=== PATIENT | female | born 1930 | race Hispanic/Latino ===

== ENCOUNTER 2018-08-28 11:04 | Inpatient (IN) | payer MEDICARE ==
--- NOTE | 2018-08-28 11:22 | Event Note ---
ED Screening Note Date of service: 08/28/18 Time: 11:19 ED Screening Note: 88 y/o female with cc of nausea, vomiting, diarrhea and abdomimal pain for 6 days. Had a fall on Wednesday. reports that her stomach is distended. not able to eat or drink. This initial assessment/diagnostic orders/clinical plan/treatment(s) is/are subject to change based on patients health status, clinical progression and re- assessment by fellow clinical providers in the ED. Further treatment and workup at subsequent clinical providers discretion. Patient/guardian urged not to elope from the ED as their condition may be serious if not clinically assessed and managed. Initial orders include:
[2018-08-28] MEDS ORDERED: MORPHINE IV ONE (12:41)
[2018-08-28] MEDS ORDERED: ZOFRAN IV ONE (12:41)
[2018-08-28] MEDS ORDERED: NACL 0.9% 1000 ML 1,000 ML IV ONE (12:41)
--- NOTE | 2018-08-28 12:48 | Emergency Department Report ---
HPI - General Chief Complaint: Nausea/Vomiting/Diarrhea Time Seen by Provider: 08/28/18 12:27 - HPI HPI: Room 10 The patient is an 88-year-old female presented with a chief complaint of nausea and vomiting. The patient has suffered from intractable nausea vomiting for the last 8 days. Family states there was a 1 or 2 day period within the last week w ith the patient was able to keep something on her stomach. Patient complains of feeling weak and states she has diffuse abdominal discomfort. Patient admits to diarrhea for approximately 9 days. There's been no recent antibiotic use. Family reports a subjective fever. Patient currently gives her abdominal pain score of 3/10. Location: gastroentestinal system Duration: 8 days Quality: burning Severity: 3/10 Modifying factors: [see above] Context: [see above] Mode of transportation: [not driving] ED Past Medical Hx - Past Medical History Hx Hypertension: Yes Additional medical history: "heart murmur" IRON DEFIENCY ANMENIA. GETS IRON INFUSIONS - Surgical History Additional Surgical History: "foot surgery", knee surgery, Hysterectomy - Family History Family history: no significant - Social History Smoking Status: Never Smoker Substance Use Type: None - Medications Home Medications: Home Medications Medication Instructions Recorded Confirmed Last Taken Type Propranolol HCl 60 mg PO QDAY 09/28/15 09/28/15 Unknown History ALPRAZolam [Xanax TAB] 0.25 mg PO BID PRN #10 tab 10/01/15 Unknown Rx ED Review of Systems ROS: Stated complaint: NAUSEA Other details as noted in HPI Constitutional: fever (subjective) ENT: denies: throat pain Respiratory: no symptoms reported Cardiovascular: other (burning esophageal pain) Endocrine: no symptoms reported Gastrointestinal: abdominal pain, nausea, vomiting, diarrhea Genitourinary: denies: dysuria Musculoskeletal: denies: back pain Neurological: denies: headache Physical Exam - Physical Exam Vital Signs: Vital Signs 08/28/18 11:14 Temperature 97.5 F L Pulse Rate 77 Respiratory 18 Rate Blood Pressure 138/73 O2 Sat by Pulse 95 Oximetry Physical Exam: GENERAL: The patient is well-developed well-nourished female lying on stretcher not appearing to be in acute distress. [] HEENT: Normocephalic. Atraumatic. Extraocular motions are intact. Patient has moist mucous membranes. NECK: Trachea midline CHEST/LUNGS: Clear to auscultation. There is no respiratory distress noted. HEART/CARDIOVASCULAR: Regular. There is no tachycardia. There is no gallop rub or murmur. ABDOMEN: Abdomen is soft, with discomfort to palpation in the midepigastric region, right lower quadrant, suprapubic and left lower quadrant. Patient has normal bowel sounds. There is no abdominal distention. SKIN: There is no rash. There is no edema. There is no diaphoresis. NEURO: The patient is awake, alert, and oriented. The patient is cooperative. The patient has normal speech MUSCULOSKELETAL: There is no evidence of acute injury. ED Course Vital Signs 08/28/18 11:14 Temperature 97.5 F L Pulse Rate 77 Respiratory 18 Rate Blood Pressure 138/73 O2 Sat by Pulse 95 Oximetry - Consultations Consultation #1: 08/28/18 15:23 Surgery paged 08/28/18 15:[address] Lopez- Will consult ED Medical Decision Making - Lab Data Result diagrams: 08/28/18 12:41 08/28/18 12:41 Laboratory Tests 08/28/18 08/28/18 08/28/18 12:41 12:41 12:41 WBC 8.6 RBC 4.37 Hgb 13.4 Hct 39.2 MCV 90 MCH 31 MCHC 34 RDW 15.9 H Plt Count 187 Lymph % (Auto) 9.1 L [place] % (Auto) 10.2 H Eos % (Auto) 0.1 Baso % (Auto) 0.3 Lymph # 0.8 L [place] # 0.9 H Eos # 0.0 Baso # 0.0 Seg Neutrophils % 80.3 H Seg Neutrophils # 6.9 Sodium 131 L Potassium 4.0 Chloride 95.8 L Carbon Dioxide 20 L Anion Gap 19 BUN 21 H Creatinine 0.7 Estimated GFR > 60 BUN/Creatinine Ratio 30 Glucose 92 Calcium 8.5 Total Bilirubin 0.30 AST 12 ALT 7 Alkaline Phosphatase 77 Total Creatine Kinase 40 CK-MB (CK-2) 2.3 CK-MB (CK-2) Rel Index 5.7 H Troponin T < 0.010 Total Protein 5.6 L Albumin 3.1 L Albumin/Globulin Ratio 1.2 Lipase 15 - EKG Data -: EKG Interpreted by Or EKG shows normal: sinus rhythm Rate: normal - EKG Data When compared to previous EKG there are: previous EKG unavailable Interpretation: nonspecific ST-T wave compa (biphasic T waves in leads V2, V3. T- wave inversions in leads V4, V5, V6), other (left bundle branch block) - Radiology Data Radiology results: report reviewed (CT abdomen and pelvis), image reviewed (CT abdomen and pelvis) [facility] [address] [place] [address] Cat Scan Report Signed Patient: JONO BIRMINGHAM MR#: [id number] : 1930 Acct:[id number] Age/Sex: 88 / F ADM Date: 08/28/18 Loc: ED Attending Dr: Ordering Physician: MESFIN MUNOZ MD Date of Service: 08/28/18 Procedure(s): CT abdomen pelvis w con Accession Number(s): [id number] cc: MESFIN MUNOZ MD PROCEDURE: CT ABDOMEN PELVIS W CON TECHNIQUE: Computerized axial tomography of the abdomen and pelvis was performed after the IV injection of iodinated nonionic contrast. Subsequently, CT of the abdomen and pelvis was performed in the delayed phase. CT DOSE LENGTH PRODUCT: 3090.7 mGycm HISTORY: epigastric and lower abd pain. Intractable n/v COMPARISONS: None . FINDINGS: Visualized lower thorax: Severe coronary artery calculi are seen. Chronic fibrotic changes are seen in the lung bases. Liver: Normal size and attenuation. Several simple hepatic cysts are seen. Several other scattered tiny low-attenuation lesions are seen which are too small to characterize. Spleen: Normal size and attenuation. Gallbladder and biliary system: Normal. Pancreas: Normal. Adrenals: Normal. Kidneys: There is a lesion in the upper pole of the right kidney which is higher in attenuation than a simple cyst measuring 4.0 x 3.3 cm. Multiple other low-attenuation lesions are seen bilaterally which are higher in attenuation than simple cysts. No hydronephrosis is seen on either side. GI tract: There is an irregular mass in the region of the cecum measuring approximately 7.1 cm AP by 6.3 cm transverse by 8.0 cm craniocaudal. This mass causes a small bowel obstruction with transition zone at the level of the terminal ileum. The appendix is normal in caliber. A duodenal diverticulum is seen. Lymph nodes and mesentery: Multiple e nlarged pericecal lymph nodes are seen. One of the larger lymph nodes measures 2.2 x 1.5 cm on series 2, image 92. There is stranding in the left omentum with some nodularity. Vasculature: Atherosclerotic calculi are seen in the abdominal aorta and branch vessels. Bladder: Normal. Reproductive organs: Post hysterectomy. Peritoneum: There is a small volume of scattered free intra- abdominal fluid. Musculoskeletal structures: No significant abnormality. Other: There is a small fat-containing umbilical hernia.. IMPRESSION: 1. 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 2. Several enlarged pericecal lymph nodes concerning for neoplastic involvement. Stranding and nodularity of the left omentum could represent omental carcinomatosis. 3. Several simple hepatic cysts. Several additional low-attenuation hepatic lesions which are too small to characterize but may represent small cysts or metastatic lesions. 4. Small volume of scattered ascites. 5. Several nonspecific low-attenuation renal lesions which are higher in attenuation than simple cysts and may represent proteinaceous or hemorrhagic cysts versus solid renal neoplasms. The urgent results were discussed with SHIVA Saab at 11:56 AM PST on 08/28/2018. This document is electronically signed by Blossom Morales., August 28 2018 03:06:55 PM ET Transcribed By: MG Dictated By: BLOSSOM JOHNSON MD Electronically Authenticated By: BLOSSOM JOHNSON MD Signed Date/Time: 08/28/18 1509 DD/ 18 TD/TT: 08/28/181418 - Differential Diagnosis gastritis, gastroenteritis, SBO, ACS, Critical care attestation.: If time is entered above; I have spent that time in minutes in the direct care of this critically ill patient, excluding procedure time. ED Disposition Clinical Impression: Acute abdominal pain, Cecum mass, Small bowel obstruction Disposition: OP ADMIT IP TO THIS HOSP Is pt being admited?: Yes Does the pt Need Aspirin: No Condition: Fair Referrals: ANA MOURA MD [Primary Care Provider] - 3-5 Days Time of Disposition: 15:34 (hospitalist notified (Dr Yost))
[2018-08-28 12:59] LABS: Basophils % (Auto) 0.3 % (0.0-1.8); Eosinophils % (Auto) 0.1 % (0.0-4.3); Hematocrit 39.2 % (30.3-42.9); Hemoglobin 13.4 gm/dl (10.1-14.3); Lymphocytes # (Auto) 0.8 K/mm3 (1.2-5.4); Lymphocytes % (Auto) 9.1 % (13.4-35.0); Mean Corpuscular HGB Conc 34 % (30-34); Mean Corpuscular Volume 90 fl (79-97); Monocytes # (Auto) 0.9 K/mm3 (0.0-0.8); Monocytes % (Auto) 10.2 % (0.0-7.3); Platelet Count 187 K/mm3 (140-440); Red Blood Count 4.37 M/mm3 (3.65-5.03); Red Cell Distribution Width 15.9 % (13.2-15.2)
[2018-08-28 13:16] LABS: Creatine Kinase MB 2.3 ng/mL (0.0-4.0)
[2018-08-28 13:18] LABS: Alanine Aminotransferase 7 units/L (7-56); Albumin 3.1 g/dL (3.9-5); BUN/Creatinine Ratio 30; Blood Urea Nitrogen 21 mg/dL (7-17); Calcium 8.5 mg/dL (8.4-10.2); Hemolysis Index 31
--- NOTE | 2018-08-28 15:09 | Cat Scan Report ---
PROCEDURE: CT ABDOMEN PELVIS W CON TECHNIQUE: Computerized axial tomography of the abdomen and pelvis was performed after the IV inject ion of iodinated nonionic contrast. Subsequently, CT of the abdomen and pelvis was performed in the d elayed phase. CT DOSE LENGTH PRODUCT: 3090.7 mGycm HISTORY: epigastric and lower abd pain. Intractable n/v COMPARISONS: None . FINDINGS: Visualized lower thorax: Severe coronary artery calculi are seen. Chronic fibrotic changes are seen i n the lung bases. Liver: Normal size and attenuation. Several simple hepatic cysts are seen. Several other scattered ti ny low-attenuation lesions are seen which are too small to characterize. Spleen: Normal size and attenuation. Gallbladder and biliary system: Normal. Pancreas: Normal. Adrenals: Normal. Kidneys: There is a lesion in the upper pole of the right kidney which is higher in attenuation than a simple cyst measuring 4.0 x 3.3 cm. Multiple other low-attenuation lesions are seen bilaterally whi ch are higher in attenuation than simple cysts. No hydronephrosis is seen on either side. GI tract: There is an irregular mass in the region of the cecum measuring approximately 7.1 cm AP by 6.3 cm transverse by 8.0 cm craniocaudal. This mass causes a small bowel obstruction with transition zone at the level of the terminal ileum. The appendix is normal in caliber. A duodenal diverticulum i s seen. Lymph nodes and mesentery: Multiple enlarged pericecal lymph nodes are seen. One of the larger lymph nodes measures 2.2 x 1.5 cm on series 2, image 92. There is stranding in the left omentum with some n odularity. Vasculature: Atherosclerotic calculi are seen in the abdominal aorta and branch vessels. Bladder: Normal. Reproductive organs: Post hysterectomy. Peritoneum: There is a small volume of scattered free intra-abdominal fluid. Musculoskeletal structures: No significant abnormality. Other: There is a small fat-containing umbilical hernia.. IMPRESSION: 1. 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 2. Several enlarged pericecal lymph nodes concerning for neoplastic involvement. Stranding and nodula rity of the left omentum could represent omental carcinomatosis. 3. Several simple hepatic cysts. Several additional low-attenuation hepatic lesions which are too sma ll to characterize but may represent small cysts or metastatic lesions. 4. Small volume of scattered ascites. 5. Several nonspecific low-attenuation renal lesions which are higher in attenuation than simple cyst s and may represent proteinaceous or hemorrhagic cysts versus solid renal neoplasms. The urgent results were discussed with SHIVA Saab at 11:56 AM PST on 08/28/2018. This document is electronically signed by Blossom Morales., August 28 2018 03:06:55 PM ET
--- NOTE | 2018-08-28 16:19 | History and Physical Report ---
History of Present Illness Chief complaint: My stomach hurts History of present illness: 88 YO Female with HTN, Anemia requiring blood transfusion presents to ED for evaluation. Pt states that has experienced nausea and multiple episodes of vomiting and abdominal pain over the past 1 week. Pt states that her pain is 3- 5/10, constant, diffuse, without exacerbating, or alleviating factors. Pt transported to [facility] via private vehicle. 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 complicated by PSBO on CT of abdomen/pelvis. Pt admitted to EDEL unit. Pt seen and evaluated by surgical team in ED. Pt denies fever, chills, chest pain, palpitations, trauma, unintentional weight loss, night sweats, productive cough, skin rash, or recent ill contacts. Prior admission on 09/28/15 reviewed. All listed medication reconciled at time of exam. Past History Past Medical History: hypertension Past Surgical History: hysterectomy, total knee replacement, Other (Foot surgery) Social history: . denies: smoking, alcohol abuse, prescription drug abuse Family history: no significant family history Medications and Allergies Allergies Allergy/AdvReac Type Severity Reaction Status Date / Time acetaminophen Allergy Unknown Verified 08/28/18 11:05 [From Darvocet-N 100] aspirin Allergy Unknown Verified 08/28/18 11:05 codeine Allergy Unknown Verified 08/28/18 11:05 propoxyphene napsylate Allergy Unknown Verified 08/28/18 11:05 [From Darvocet-N 100] Home Medications Medication Instructions Recorded Confirmed Last Taken Type Propranolol HCl 60 mg PO QDAY 09/28/15 08/29/18 08/26/18 22:00 History ALPRAZolam [Xanax TAB] 0.25 mg PO BID PRN #10 tab 10/01/15 Unknown Rx Review of Systems Constitutional: no weight loss, no weight gain, no fever, no chills Ears, nose, mouth and throat: no ear discharge, no decreased hearing, no nose pain, no nasal congestion Breasts: no change in shape, no swelling Cardiovascular: no orthopnea, no palpitations, no rapid/irregular heart beat, no edema Respiratory: no cough, no cough with sputum, no excessive sputum, no hemoptysis Gastrointestinal: abdominal pain, nausea, vomiting, no change in bowel habits, no hematemesis, no BRBPR, no melena, no loss of appetite, no heartburn Genitourinary Female: no pelvic pain, no flank pain, no menorrhagia, no dysuria, no urinary frequency, no urgency, no stress incontinence Rectal: no pain, no incontinence, no bleeding Musculoskeletal: no neck stiffness, no neck pain, no shooting arm pain, no low back pain, no shooting leg pain, no redness of joints Integumentary: no rash, no pruritis, no redness, no wounds, no jaundice, no blisters Neurological: no transient paralysis, no paralysis, no weakness, no parathesias, no numbness, no tingling, no seizures, no syncope, no ataxia Psychiatric: no anxiety, no memory loss, no sleep disturbances, no insomnia, no change in libido, no suicidal ideation, no disorientation Endocrine: no cold intolerance, no heat intolerance, no polyphagia, no polydipsia, no polyuria Hematologic/Lymphatic: no easy bruising, no easy bleeding, no lymphadenopathy, no lymphedema Allergic/Immunologic: no urticaria, no allergic rhinitis, no wheezing, no persistent infections Exam - Constitutional Vitals: Temp Pulse Resp BP Pulse Ox 97.5 F L 77 16 138/73 95 08/28/18 11:14 08/28/18 11:14 08/28/18 13:35 08/28/18 11:14 08/28/18 11:14 General appearance: Present: mild distress - EENT Eyes: Present: PERRL ENT: hearing intact, clear oral mucosa - Neck Neck: Present: supple, normal ROM - Respiratory Respiratory effort: normal Respiratory: bilateral: CTA - Cardiovascular Heart Sounds: Present: S1 & S2. Absent: rub, click - Extremities Extremities: pulses symmetrical, No edema Peripheral Pulses: within normal limits - Abdominal General gastrointestinal: Present: soft, non-tender, non-distended, normal bowel sounds Female genitourinary: Present: normal - Integumentary Integumentary: Present: clear, warm, dry - Musculoskeletal Musculoskeletal: gait normal, strength equal bilaterally - Psychiatric Psychiatric: appropriate mood/affect, intact judgment & insight - Neurologic Neurologic: CNII-XII intact, moves all extremities Results - Labs CBC & Chem 7: 08/29/18 05:55 08/29/18 05:55 Labs: Abnormal lab results 08/28/18 08/28/18 08/28/18 Range/Units 12:41 12:41 12:41 RDW 15.9 H (13.2-15.2) % Lymph % (Auto) 9.1 L (13.4-35.0) % [place] % (Auto) 10.2 H (0.0-7.3) % Lymph # 0.8 L (1.2-5.4) K/mm3 [place] # 0.9 H (0.0-0.8) K/mm3 Seg Neutrophils % 80.3 H (40.0-70.0) % Sodium 131 L (137-145) mmol/L Chloride 95.8 L (98-107) mmol/L Carbon Dioxide 20 L (22-30) mmol/L BUN 21 H (7-17) mg/dL CK-MB (CK-2) Rel Index 5.7 H (0-4) Total Protein 5.6 L (6.3-8.2) g/dL Albumin 3.1 L (3.9-5) g/dL Assessment and Plan - Patient Problems (1) Small bowel obstruction Current Visit: Yes Status: Acute Plan to address problem: Bowel rest, surgery consulted in ED, CT Abdomen pelvis, abdominal x ray in am,IVF resuscitation therapy, pain control. (2) Hyponatremia syndrome Current Visit: Yes Status: Acute Plan to address problem: IVF resuscitation therapy, repeat bmp. (3) Acidosis Current Visit: Yes Status: Acute Plan to address problem: IVF resuscitation therapy, repeat bmp, supportive care. (4) Acute abdominal pain Current Visit: Yes Status: Acute Plan to address problem: CT abdomen pelvis, serial abdominal exam, pain control, monitor for closed loop bowel obstruction., monitor for abdominal distention/and worsening abdominal pain. XR abdomen in AM. 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 (6) DVT prophylaxis Current Visit: Yes Status: Acute Plan to address problem: SCD to BLE while in bed,
[2018-08-28] MEDS ORDERED: SODIUM CHLORIDE FLUSH SYRINGE 10 ML IV PRN (16:24)
[2018-08-28] MEDS ORDERED: TYLENOL PO PRN (16:24)
--- NOTE | 2018-08-28 16:41 | Consultation ---
History of Present Illness Consult date: 08/28/18 Reason for consult: abdominal pain Chief complaint: abdominal pain - History of present illness History of present illness: 88 yo F with hx of iron deficiency anemia presents to ER with 8 day history of n ausea/vomiting, abdominal pain. The patient states her pain is hard to describe and localized to the lower mid abdomen and radiates to the right side. There are no alleviating or exacerbating factors. It is not related to food although some foods such as meat tend to get stuck in her esophagus. Over the last 6 months she has noticed a 40lb or more unintentional weight loss. She has noticed a change in the color of her stool and thinks it is much darker and may be bloody. She sees Dr. Mayes (oncology) as an outpatient for iron infusions for anemia. She also notes that she has had looser stools. Her last BM was yesterday. No f/c. No CP, SOB. Last cscope was more than 5 years ago. She was a dvised by her PCP Dr. Sarah Rodriguez that she should have cscope done several months ago but did not have a chance to have it done. Past History Past Medical History: anemia (iron deficiency) Past Surgical History: Other (fatty tumor excision) Social history: no significant social history Family history: no significant family history Medications and Allergies Allergies Allergy/AdvReac Type Severity Reaction Status Date / Time acetaminophen Allergy Unknown Verified 08/28/18 11:05 [From Darvocet-N 100] aspirin Allergy Unknown Verified 08/28/18 11:05 codeine Allergy Unknown Verified 08/28/18 11:05 propoxyphene napsylate Allergy Unknown Verified 08/28/18 11:05 [From Darvocet-N 100] Home Medications Medication Instructions Recorded Confirmed Last Taken Type Propranolol HCl 60 mg PO QDAY 09/28/15 09/28/15 Unknown History ALPRAZolam [Xanax TAB] 0.25 mg PO BID PRN #10 tab 10/01/15 Unknown Rx Active Meds: Active Medications Acetaminophen (Tylenol) 650 mg PO Q4H PRN PRN Reason: Pain MILD(1-3)/Fever >100.5/[place] Alprazolam (Xanax) 0.25 mg PO BID PRN PRN Reason: Anxiety Sodium Chloride (Nacl 0.9% 1000 Ml) 1,000 mls @ 75 mls/hr IV DIRECT RAJ Ondansetron HCl (Zofran) 4 mg IV Q8H PRN PRN Reason: Nausea And Vomiting Propranolol HCl (Inderal La) 60 mg PO QDAY RAJ Sodium Chloride (Sodium Chloride Flush Syringe 10 Ml) 10 ml IV BID RAJ Sodium Chloride (Sodium Chloride Flush Syringe 10 Ml) 10 ml IV PRN PRN PRN Reason: LINE FLUSH Review of Systems All systems: negative (10 pt ROS performed and negative except for that listed in HPI) Exam Vital Signs Temp Pulse Resp BP Pulse Ox 97.5 F L 77 18 138/73 95 08/28/18 11:14 08/28/18 11:14 08/28/18 11:14 08/28/18 11:14 08/28/18 11:14 Narrative exam: Gen: AAOx3. NAD. Frail appearing ENT: no scleral icterus or conjunctival pallor CV: s1, S2+ Resp; even and unlabored Abd: soft, ND, + TTP in suprapubic region and RLQ. No r/r/g Ext: no c/c/e Results - Labs 08/28/18 12:41 08/28/18 12:41 Abnormal lab results 08/28/18 08/28/18 08/28/18 Range/Units 12:41 12:41 12:41 RDW 15.9 H (13.2-15.2) % Lymph % (Auto) 9.1 L (13.4-35.0) % [place] % (Auto) 10.2 H (0.0-7.3) % Lymph # 0.8 L (1.2-5.4) K/mm3 [place] # 0.9 H (0.0-0.8) K/mm3 Seg Neutrophils % 80.3 H (40.0-70.0) % Sodium 131 L (137-145) mmol/L Chloride 95.8 L (98-107) mmol/L Carbon Dioxide 20 L (22-30) mmol/L BUN 21 H (7-17) mg/dL CK-MB (CK-2) Rel Index 5.7 H (0-4) Total Protein 5.6 L (6.3-8.2) g/dL Albumin 3.1 L (3.9-5) g/dL Diabetes panel 08/28/18 Range/Units 12:41 Sodium 131 L (137-145) mmol/L Potassium 4.0 (3.6-5.0) mmol/L Chloride 95.8 L (98-107) mmol/L Carbon Dioxide 20 L (22-30) mmol/L BUN 21 H (7-17) mg/dL Creatinine 0.7 (0.7-1.2) mg/dL Glucose 92 (65-100) mg/dL Calcium 8.5 (8.4-10.2) mg/dL AST 12 (5-40) units/L ALT 7 (7-56) units/L Alkaline Phosphatase 77 (35-129) units/L Total Protein 5.6 L (6.3-8.2) g/dL Albumin 3.1 L (3.9-5) g/dL Calcium panel 08/28/18 Range/Units 12:41 Calcium 8.5 (8.4-10.2) mg/dL Albumin 3.1 L (3.9-5) g/dL Pituitary panel 08/28/18 Range/Units 12:41 Sodium 131 L (137-145) mmol/L Potassium 4.0 (3.6-5.0) mmol/L Chloride 95.8 L (98-107) mmol/L Carbon Dioxide 20 L (22-30) mmol/L BUN 21 H (7-17) mg/dL Creatinine 0.7 (0.7-1.2) mg/dL Glucose 92 (65-100) mg/dL Calcium 8.5 (8.4-10.2) mg/dL Adrenal panel 08/28/18 Range/Units 12:41 Sodium 131 L (137-145) mmol/L Potassium 4.0 (3.6-5.0) mmol/L Chloride 95.8 L (98-107) mmol/L Carbon Dioxide 20 L (22-30) mmol/L BUN 21 H (7-17) mg/dL Creatinine 0.7 (0.7-1.2) mg/dL Glucose 92 (65-100) mg/dL Calcium 8.5 (8.4-10.2) mg/dL Total Bilirubin 0.30 (0.1-1.2) mg/dL AST 12 (5-40) units/L ALT 7 (7-56) units/L Alkaline Phosphatase 77 (35-129) units/L Total Protein 5.6 L (6.3-8.2) g/dL Albumin 3.1 L (3.9-5) g/dL - Imaging CT scan - abdomen: report reviewed, image reviewed CT scan - pelvis: report reviewed, image reviewed Assessment and Plan 88 yo F with 1. cecal mass 2. SBO 2/2 #1 3. iron deficiency anemia 4. malnutrition - albumin 3.1 Plan: 1. NPO, place NGT 2. IVF 3. prn pain and nausea control 4. CEA 5. CT chest to r/o mets 6. oncology consult - Dr. Davison. Dr. Mayes is not on staff at [facility] 7. GI consult 8. cardiology consult - preop risk assessment. 9. Ct Abd showed small liver lesions - May need MRI abdomen to evaluate as they are likely too small too biopsy - r/o mets Discussed test results, plan with family at bedside and patient. Patient' son is Tyler Hughes [phone]. PCP is Sarah Rodriguez. I discussed possible surgery with patient and family and they would like to pursue all treatment. Thank you, please call with questions.
[2018-08-28] MEDS ORDERED: NACL 0.9% 1000 ML 1,000 ML IV SCH (17:00)
[2018-08-28 17:24] LABS: Bacteria,Urine 1+ /HPF (Negative); Bilirubin,Urine NEG (Negative); Blood,Urine NEG (Negative); Color,Urine Yellow (Yellow); Mucus,Urine FEW /HPF; Protein,Urine <15 mg/dL mg/dL (Negative); Urobilinogen,Urine < 2.0 mg/dL (<2.0)
[2018-08-28] MEDS: ZOFRAN IV PRN (18:40)
--- NOTE | 2018-08-28 19:11 | Cat Scan Report ---
PROCEDURE: CT CHEST WO CON TECHNIQUE: CT chest without contrast HISTORY: cecal mass, r/o metastatic disease COMPARISONS: No prior studies for comparison FINDINGS: No evidence for mediastinal mass or pathologic lymph node enlargement. No pulmonary mass identified. No pulmonary infiltrate seen. No evidence for pleural fluid collection. Mild dependent atelectasis noted at the lung bases No suspicious bony lesions are identified Within the upper abdomen noted is a low density focus left lobe of the liver 3.5 cm most likely cyst. Additionally noted are several cysts within the visualized portion of the kidneys is minimal residua l contrast noted within the renal collecting systems IMPRESSION: No evidence for metastatic disease in the chest Incidental findings in the upper abdomen as noted above. This document is electronically signed by Mina Watters MD., August 28 2018 07:09:46 PM ET
[2018-08-28] MEDS: PROTONIX IV SCH (22:35)
[2018-08-28] MEDS: SODIUM CHLORIDE FLUSH SYRINGE 10 ML IV SCH (22:35)
[2018-08-29 06:44] LABS: Hematocrit 33.8 % (30.3-42.9); Hemoglobin 11.4 gm/dl (10.1-14.3); Mean Corpuscular HGB Conc 34 % (30-34); Mean Corpuscular Volume 90 fl (79-97); Platelet Count 153 K/mm3 (140-440); Red Blood Count 3.74 M/mm3 (3.65-5.03); Red Cell Distribution Width 16.2 % (13.2-15.2)
[2018-08-29 06:55] LABS: Alanine Aminotransferase 6 units/L (7-56); Albumin 2.8 g/dL (3.9-5); BUN/Creatinine Ratio 28; Blood Urea Nitrogen 14 mg/dL (7-17); Calcium 7.8 mg/dL (8.4-10.2); Hemolysis Index 6
--- NOTE | 2018-08-29 07:46 | Event Note ---
Date: 08/29/18 [id number]
[2018-08-29 08:17] LABS: Anisocytosis 1+; Basophils % (Manual) 0 % (0.0-1.8); Eosinophils % (Manual) 0 % (0.0-4.3); Total Cells Counted 100
[2018-08-29 08:18] LABS: Ovalocytes Few; Platelet Estimate Consistent w Auto; Poikilocytosis 1+
--- NOTE | 2018-08-29 08:30 | XRay Report ---
ABDOMEN, 2 views: History: Abdominal pain. The nasogastric tube terminates in the fundus of the stomach. Multiple moderately dilated loops of small bowel are identified and appear grossly unchanged since the CT performed 08/28/18. The colon appears decompressed. No evidence for free air or pathologic calcifications. IMPRESSION: No significant change in the small bowel obstruction pattern.
[2018-08-29] MEDS ORDERED: PROPRANOLOL HCL 60 MG PO SCH (10:00)
--- NOTE | 2018-08-29 10:25 | Progress Note ---
Assessment and Plan Assessment and plan: 88 YO Female with HTN, Anemia requiring blood transfusion presents to ED for evaluation. Pt states that has experienced nausea and multiple episodes of vomiting and abdominal pain over the past 1 week. Pt states that her pain is 3- 5/10, constant, diffuse, without exacerbating, or alleviating factors. Pt transported to [facility] via private vehicle. 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 complicated by PSBO on CT of abdomen/pelvis. Pt admitted to [facility] unit. Pt seen and evaluated by surgical team in ED. Pt denies fever, chills, chest pain, palpitations, trauma, unintentional weight loss, night sweats, productive cough, skin rash, or recent ill contacts. Prior admission on 09/28/15 reviewed. All listed medication reconciled at time of exam. ECG shows NSR with apparently new LBBB (not present on last ECG in office 09/2016). Echo done 09/2016 showed EF 50%, grade 1 diastolic dysfunction. Lexiscan MPI stress test 09/2015 which was negative, EF 50%. CT A/P IMPRESSION: 1. 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 2. Several enlarged pericecal lymph nodes concerning for neoplastic involvement. Stranding and nodularity of the left omentum could represent omental carcinomatosis. 3. Several simple hepatic cysts. Several additional low-attenuation hepatic lesions which are too small to characterize but may represent small cysts or metastatic lesions. 4. Small volume of scattered ascites. 5. Several nonspecific low-attenuation renal lesions which are higher in attenuation than simple cysts and may represent proteinaceous or hemorrhagic cysts versus solid renal neoplasms. Assessment/Plan Cecal Mass: Surgery follow, GI evaluated and signed off. SBO secondary to Cecal Mass: NGT, Judicious pain control, M Possible Metastatic lesion to liver and omentum: MRI For further evaluation, patient refusing now, discussed with surgery, can be done later Hyponatermia: Continue gentle hydration Metabolic Acidosis: Anticipate correction with hydration Nausea and Vomiting: Continue NGT, zofran PRN Peritoneal irration/acute abdominal pain secondary to small bowel obstruction: Management as noted above Iron deficency anemia: As noted above patient follows with hematology oncology. Considering coronary consult hematology. Left bundle branch block: Repeat echocardiogram ordered for perioperative risk stratification Hypokalemia: Replace Hypoglycemia: Start D5 with gentle hydration DVT/GI prophy History Interval history: Patient seen and examined, still with abdominal pain but refusing MRI due to desire to have NGT taken. Hospitalist Physical - Physical exam Narrative exam: VITAL SIGNS: Reviewed. GENERAL: The patient appeared well nourished and normally developed, mild distress, Vital signs as documented. HEAD: No signs of head trauma. EYES: Pupils are equal. Extraocular motions intact. EARS: Hearing grossly intact. NOSTRIL: NGT to right nostril MOUTH: Oropharynx is normal. NECK: No adenopathy, no JVD. CHEST: Chest with clear breath sounds bilaterally. No wheezes, rales, or rhonchi. CARDIAC: Regular rate and rhythm. S1 and S2, without murmurs, gallops, or rubs. VASCULAR: No Edema. Peripheral pulses normal and equal in all extremities. ABDOMEN: Soft, tender, distended. No rebound or guarding, and no masses palpated. Bowel Sounds hypoactive MUSCULOSKELETAL: Good range of motion of all major joints. Extremities without clubbing, cyanosis or edema. NEUROLOGIC EXAM: Alert and oriented x 3 No focal sensory or strength deficits. Speech normal. Follows commands. PSYCHIATRIC: Mood normal. SKIN: No rash or lesions. - Constitutional Vitals: Temp Pulse Resp BP Pulse Ox 98.8 F 65 20 169/61 95 08/29/18 07:45 08/29/18 07:45 08/29/18 07:45 08/29/18 07:45 08/29/18 09:17 General appearance: Present: mild distress Results - Labs CBC & Chem 7: 08/29/18 05:55 08/29/18 05:55 Labs: Laboratory Last Values WBC 7.0 K/mm3 (4.5-11.0) 08/29/18 05:55 RBC 3.74 M/mm3 (3.65-5.03) 08/29/18 05:55 Hgb 11.4 gm/dl (10.1-14.3) 08/29/18 05:55 Hct 33.8 % (30.3-42.9) 08/29/18 05:55 MCV 90 fl (79-97) 08/29/18 05:55 MCH 31 pg (28-32) 08/29/18 05:55 MCHC 34 % (30-34) 08/29/18 05:55 RDW 16.2 % (13.2-15.2) H 08/29/18 05:55 Plt Count 153 K/mm3 (140-440) 08/29/18 05:55 Lymph % (Auto) 9.1 % (13.4-35.0) L 08/28/18 12:41 Isabela % (Auto) Plasma Processor 08/29/18 05:55 Eos % (Auto) 0.1 % (0.0-4.3) 08/28/18 12:41 Baso % (Auto) 0.3 % (0.0-1.8) 08/28/18 12:41 Lymph # 0.8 K/mm3 (1.2-5.4) L 08/28/18 12:41 Isabela # 0.9 K/mm3 (0.0-0.8) H 08/28/18 12:41 Eos # 0.0 K/mm3 (0.0-0.4) 08/28/18 12:41 Baso # 0.0 K/mm3 (0.0-0.1) 08/28/18 12:41 Add Manual Diff Complete 08/29/18 05:55 Total Counted 100 08/29/18 05:55 Seg Neutrophils % 80.3 % (40.0-70.0) H 08/28/18 12:41 Seg Neuts % (Manual) 86.0 % (40.0-70.0) H 08/29/18 05:55 0 % 08/29/18 05:55 5.0 % (13.4-35.0) L 08/29/18 05:55 Reactive Lymphs % (Man) 0 % 08/29/18 05:55 9.0 % (0.0-7.3) H 08/29/18 05:55 0 % (0.0-4.3) 08/29/18 05:55 0 % (0.0-1.8) 08/29/18 05:55 0 % 08/29/18 05:55 0 % 08/29/18 05:55 0 % 08/29/18 05:55 0 % 08/29/18 05:55 Nucleated RBC % Not Reportable 08/29/18 05:55 Seg Neutrophils # 6.9 K/mm3 (1.8-7.7) 08/28/18 12:41 Seg Neutrophils # Man 6.0 K/mm3 (1.8-7.7) 08/29/18 05:55 Band Neutrophils # 0.0 K/mm3 08/29/18 05:55 0.4 K/mm3 (1.2-5.4) L 08/29/18 05:55 Abs React Lymphs (Man) 0.0 K/mm3 08/29/18 05:55 0.6 K/mm3 (0.0-0.8) 08/29/18 05:55 0.0 K/mm3 (0.0-0.4) 08/29/18 05:55 0.0 K/mm3 (0.0-0.1) 08/29/18 05:55 0.0 K/mm3 08/29/18 05:55 0.0 K/mm3 08/29/18 05:55 0.0 K/mm3 08/29/18 05:55 Blast Cells # 0.0 K/mm3 08/29/18 05:55 WBC Morphology Not Reportable 08/29/18 05:55 WBC Morphology TNR 08/29/18 05:55 Hypersegmented Neuts Not Reportable 08/29/18 05:55 Hyposegmented Neuts Not Reportable 08/29/18 05:55 Hypogranular Neuts Not Reportable 08/29/18 05:55 Not Reportable 08/29/18 05:55 Not Reportable 08/29/18 05:55 Not Reportable 08/29/18 05:55 Not Reportable 08/29/18 05:55 Not Reportable 08/29/18 05:55 Not Reportable 08/29/18 05:55 Consistent w auto 08/29/18 05:55 Not Reportable 08/29/18 05:55 Plt Clumps, EDTA Not Reportable 08/29/18 05:55 Not Reportable 08/29/18 05:55 Not Reportable 08/29/18 05:55 Not Reportable 08/29/18 05:55 Plt Morphology Comment Not Reportable 08/29/18 05:55 RBC Morphology Not Reportable 08/29/18 05:55 Dimorphic RBCs Not Reportable 08/29/18 05:55 Not Reportable 08/29/18 05:55 Not Reportable 08/29/18 05:55 1+ 08/29/18 05:55 1+ 08/29/18 05:55 Not Reportable 08/29/18 05:55 Not Reportable 08/29/18 05:55 Not Reportable 08/29/18 05:55 Not Reportable 08/29/18 05:55 Not Reportable 08/29/18 05:55 Not Reportable 08/29/18 05:55 Not Reportable 08/29/18 05:55 Few 08/29/18 05:55 Not Reportable 08/29/18 05:55 Not Reportable 08/29/18 05:55 Not Reportable 08/29/18 05:55 Not Reportable 08/29/18 05:55 Not Reportable 08/29/18 05:55 Not Reportable 08/29/18 05:55 Few 08/29/18 05:55 Acanthocytes (Spur) Not Reportable 08/29/18 05:55 Rouleaux Not Reportable 08/29/18 05:55 Not Reportable 08/29/18 05:55 Not Reportable 08/29/18 05:55 Not Reportable 08/29/18 05:55 Not Reportable 08/29/18 05:55 Hem Pathologist Commnt No 08/29/18 05:55 Sodium 134 mmol/L (137-145) L 08/29/18 05:55 Potassium 3.4 mmol/L (3.6-5.0) L 08/29/18 05:55 Chloride 100.9 mmol/L (98-107) 08/29/18 05:55 Carbon Dioxide 18 mmol/L (22-30) L 08/29/18 05:55 19 mmol/L 08/29/18 05:55 BUN 14 mg/dL (7-17) 08/29/18 05:55 0.5 mg/dL (0.7-1.2) L 08/29/18 05:55 Estimated GFR > 60 ml/min 08/29/18 05:55 28 % 08/29/18 05:55 Glucose 62 mg/dL (65-100) L 08/29/18 05:55 Calcium 7.8 mg/dL (8.4-10.2) L 08/29/18 05:55 0.30 mg/dL (0.1-1.2) 08/29/18 05:55 AST 9 units/L (5-40) 08/29/18 05:55 ALT 6 units/L (7-56) L 08/29/18 05:55 67 units/L (35-129) 08/29/18 05:55 40 units/L (30-135) 08/28/18 12:41 CK-MB (CK-2) 2.3 ng/mL (0.0-4.0) 08/28/18 12:41 CK-MB (CK-2) Rel Index 5.7 (0-4) H 08/28/18 12:41 < 0.010 ng/mL (0.00-0.029) 08/28/18 12:41 4.9 g/dL (6.3-8.2) L 08/29/18 05:55 2.8 g/dL (3.9-5) L 08/29/18 05:55 1.3 % 08/29/18 05:55 15 units/L (13-60) 08/28/18 12:41 Yellow (Yellow) 08/28/18 Unknown Clear (Clear) 08/28/18 Unknown 5.0 (5.0-7.0) 08/28/18 Unknown Ur Specific Myrtle 1.049 (1.003-1.030) H 08/28/18 Unknown <15 mg/dl mg/dL (Negative) 08/28/18 Unknown Neg mg/dL (Negative) 08/28/18 Unknown 20 mg/dL (Negative) 08/28/18 Unknown Neg (Negative) 08/28/18 Unknown Pos (Negative) 08/28/18 Unknown Neg (Negative) 08/28/18 Unknown < 2.0 mg/dL (<2.0) 08/28/18 Unknown Ur Leukocyte Esterase Neg (Negative) 08/28/18 Unknown 1.0 /HPF (0.0-6.0) 08/28/18 Unknown 3.0 /HPF (0.0-6.0) 08/28/18 Unknown U Epithel Cells (Auto) 1.0 /HPF (0-13.0) 08/28/18 Unknown 1+ /HPF (Negative) 08/28/18 Unknown Few /HPF 08/28/18 Unknown Blood Type O POSITIVE 08/29/18 06:00 Antibody Screen Negative 08/29/18 06:00 Active Medications - Current Medications Current Medications: Generic Name Dose Route Start Last Admin Trade Name Freq PRN Reason Stop Dose Admin Acetaminophen 650 mg 08/28/18 16:24 Tylenol PO Q4H PRN Pain MILD(1-3)/Fever >100.5/[place] Alprazolam 0.25 mg 08/28/18 16:26 Xanax PO BID PRN Anxiety Enoxaparin Sodium 40 mg 08/29/18 10:00 Lovenox SUB-Q DAILY RAJ Sodium Chloride 1,000 mls @ 75 mls/hr 08/28/18 17:00 08/28/18 18:40 Nacl 0.9% 1000 Ml IV 75 mls/hr DIRECT RAJ Administration Potassium Chloride 10 meq in 100 mls @ 100 mls/hr 08/29/18 10:00 Kcl 10meq/100ml IV 08/29/18 13:59 Q1H RAJ Ondansetron HCl 4 mg 08/28/18 16:24 08/28/18 18:40 Zofran IV 4 mg Q8H PRN Administration Nausea And Vomiting Pantoprazole Sodium 40 mg 08/28/18 18:00 08/28/18 22:35 Protonix IV 40 mg DAILY RAJ Administration Propranolol HCl 60 mg 08/29/18 10:00 Inderal La PO QDAY RAJ Sodium Chloride 10 ml 08/28/18 22:00 08/28/18 22:35 Sodium Chloride Flush Syringe 10 Ml IV 10 ml BID RAJ Administration Sodium Chloride 10 ml 08/28/18 16:24 Sodium Chloride Flush Syringe 10 Ml IV PRN PRN LINE FLUSH
--- NOTE | 2018-08-29 10:43 | Gastroenterology Consultation ---
<CAT JOEL - Last Filed: 08/29/18 10:49> History of Present Illness - Reason for Consult Consult date: 08/29/18 cecal mass Requesting physician: ANDREEA GODWIN - History of Present Illness Patient is a 88 y/o female with PMH of HTN and INEZ (followed by Dr. Mayes as an outpatient for iron infusions) who presented to ED with c/o abdominal pain with associated N/V and inability to tolerate PO. 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 MRI pending for further evaluation of liver lesions. Surgery and oncology following. GI has been consulted for cecal mass. This morning patient was resting in bed w/o acute distress but with c/o discomfort from NGT. Reports continued abdominal disco mfort. Abdomen noted to be distended upon exam. Admits to associated change in bowel habits and unintentional wt loss. Denies fever, CP, SOB, or active signs of bleeding. +flatus this am. Last BM was on Wednesday with a small amount of liquid stool. Last colonoscopy was more than 5 years ago. No known Fhx of colon cancer. Past History Past Medical History: anemia, hypertension Past Surgical History: hysterectomy, total knee replacement, Other (Foot surgery, fatty tumor excision) Social history: . denies: smoking, alcohol abuse, prescription drug abuse Family history: no significant family history Medications and Allergies Allergies Allergy/AdvReac Type Severity Reaction Status Date / Time acetaminophen Allergy Unknown Verified 08/28/18 11:05 [From Darvocet-N 100] aspirin Allergy Unknown Verified 08/28/18 11:05 codeine Allergy Unknown Verified 08/28/18 11:05 propoxyphene napsylate Allergy Unknown Verified 08/28/18 11:05 [From Darvocet-N 100] Home Medications Medication Instructions Recorded Confirmed Last Taken Type Propranolol HCl 60 mg PO QDAY 09/28/15 08/29/18 08/26/18 22:00 History ALPRAZolam [Xanax TAB] 0.25 mg PO BID PRN #10 tab 10/01/15 Unknown Rx Active Meds: Active Medications Acetaminophen (Tylenol) 650 mg PO Q4H PRN PRN Reason: Pain MILD(1-3)/Fever >100.5/[place] Alprazolam (Xanax) 0.25 mg PO BID PRN PRN Reason: Anxiety Enoxaparin Sodium (Lovenox) 40 mg SUB-Q DAILY [facility] Sodium Chloride (Nacl 0.9% 1000 Ml) 1,000 mls @ 75 mls/hr IV DIRECT [facility]J Last Admin: 08/28/18 18:40 Dose: 75 mls/hr Documented by: Potassium Chloride (Kcl 10meq/100ml) 10 meq in 100 mls @ 100 mls/hr IV Q1H RAJ Stop: 08/29/18 13:59 Ondansetron HCl (Zofran) 4 mg IV Q8H PRN PRN Reason: Nausea And Vomiting Last Admin: 08/28/18 18:40 Dose: 4 mg Documented by: Pantoprazole Sodium (Protonix) 40 mg IV DAILY [facility] Last Admin: 08/28/18 22:35 Dose: 40 mg Documented by: Propranolol HCl (Inderal La) 60 mg PO QDAY [facility] Sodium Chloride (Sodium Chloride Flush Syringe 10 Ml) 10 ml IV BID [facility] Last Admin: 08/28/18 22:35 Dose: 10 ml Documented by: Sodium Chloride (Sodium Chloride Flush Syringe 10 Ml) 10 ml IV PRN PRN PRN Reason: LINE FLUSH medications reviewed/updated as required Review of Systems - Review of Systems All systems: negative Constitutional: weight loss Gastrointestinal: abdominal pain, nausea, vomiting, change in bowel habits Exam - Constitutional Vital Signs: Temp Pulse Resp BP Pulse Ox 98.8 F 65 20 169/61 95 08/29/18 07:45 08/29/18 07:45 08/29/18 07:45 08/29/18 07:45 08/29/18 09:17 General appearance: no acute distress - EENT Eyes: PERRL, EOM intact ENT: hearing intact, other (+NGT) - Respiratory Respiratory: bilateral: CTA (anterior) - Cardiovascular Rhythm: regular - Gastrointestinal General gastrointestinal: Present: soft, non-tender, distended, hypoactive bowel sounds - Neurologic Neurological: alert and oriented x3 - Labs CBC & Chem 7: 08/29/18 05:55 08/29/18 05:55 Lab Results: Laboratory Results - last 24 hr 08/28/18 08/28/18 08/28/18 12:41 12:41 12:41 WBC 8.6 RBC 4.37 Hgb 13.4 Hct 39.2 MCV 90 MCH 31 MCHC 34 RDW 15.9 H Plt Count 187 Lymph % (Auto) 9.1 L Mobile % (Auto) 10.2 H Eos % (Auto) 0.1 Baso % (Auto) 0.3 Lymph # 0.8 L Mobile # 0.9 H Eos # 0.0 Baso # 0.0 Add Manual Diff Total Counted Seg Neutrophils % 80.3 H Seg Neuts % (Manual) Band Neutrophils % Lymphocytes % (Manual) Reactive Lymphs % (Man) Monocytes % (Manual) Eosinophils % (Manual) Basophils % (Manual) Metamyelocytes % Myelocytes % Promyelocytes % Blast Cells % Nucleated RBC % Seg Neutrophils # 6.9 Seg Neutrophils # Man Band Neutrophils # Lymphocytes # (Manual) Abs React Lymphs (Man) Monocytes # (Manual) Eosinophils # (Manual) Basophils # (Manual) Metamyelocytes # Myelocytes # Promyelocytes # Blast Cells # WBC Morphology Hypersegmented Neuts Hyposegmented Neuts Hypogranular Neuts Smudge Cells Toxic Granulation Toxic Vacuolation Dohle Bodies Pelger-Huet Anomaly Dalton Rods Platelet Estimate Clumped Platelets Plt Clumps, EDTA Large Platelets Giant Platelets Platelet Satelliting Plt Morphology Comment RBC Morphology Dimorphic RBCs Polychromasia Hypochromasia Poikilocytosis Anisocytosis Microcytosis Macrocytosis Spherocytes Pappenheimer Bodies Sickle Cells Target Cells Tear Drop Cells Ovalocytes Helmet Cells [place] Bodies [place] Rings [place] Cells Bite Cells Crenated Cell Elliptocytes Acanthocytes (Spur) Rouleaux Hemoglobin C Crystals Schistocytes Malaria parasites Braulio Bodies Hem Pathologist Commnt Sodium 131 L Potassium 4.0 Chloride 95.8 L Carbon Dioxide 20 L Anion Gap 19 BUN 21 H Creatinine 0.7 Estimated GFR > 60 BUN/Creatinine Ratio 30 Glucose 92 Calcium 8.5 Total Bilirubin 0.30 AST 12 ALT 7 Alkaline Phosphatase 77 Total Creatine Kinase 40 CK-MB (CK-2) 2.3 CK-MB (CK-2) Rel Index 5.7 H Troponin T < 0.010 Total Protein 5.6 L Albumin 3.1 L Albumin/Globulin Ratio 1.2 Lipase 15 Urine Color Urine Turbidity Urine pH Ur Specific [place] Urine Protein Urine Glucose (UA) Urine Ketones Urine Blood Urine Nitrite Urine Bilirubin Urine Urobilinogen Ur Leukocyte Esterase Urine WBC (Auto) Urine RBC (Auto) U Epithel Cells (Auto) Urine Bacteria (Auto) Urine Mucus Blood Type Antibody Screen 08/28/18 08/29/18 08/29/18 Unknown 05:55 05:55 WBC 7.0 RBC 3.74 Hgb 11.4 Hct 33.8 MCV 90 MCH 31 MCHC 34 RDW 16.2 H Plt Count 153 Lymph % (Auto) [place] % (Auto) Box Spinner Eos % (Auto) Baso % (Auto) Lymph # Mobile # Eos # Baso # Add Manual Diff Complete Total Counted 100 Seg Neutrophils % Seg Neuts % (Manual) 86.0 H Band Neutrophils % 0 Lymphocytes % (Manual) 5.0 L Reactive Lymphs % (Man) 0 Monocytes % (Manual) 9.0 H Eosinophils % (Manual) 0 Basophils % (Manual) 0 Metamyelocytes % 0 Myelocytes % 0 Promyelocytes % 0 Blast Cells % 0 Nucleated RBC % Not Reportable Seg Neutrophils # Seg Neutrophils # Man 6.0 Band Neutrophils # 0.0 Lymphocytes # (Manual) 0.4 L Abs React Lymphs (Man) 0.0 Monocytes # (Manual) 0.6 Eosinophils # (Manual) 0.0 Basophils # (Manual) 0.0 Metamyelocytes # 0.0 Myelocytes # 0.0 Promyelocytes # 0.0 Blast Cells # 0.0 WBC Morphology Not Reportable Hypersegmented Neuts Not Reportable Hyposegmented Neuts Not Reportable Hypogranular Neuts Not Reportable Smudge Cells Not Reportable Toxic Granulation Not Reportable Toxic Vacuolation Not Reportable Dohle Bodies Not Reportable Pelger-Huet Anomaly Not Reportable Dalton Rods Not Reportable Platelet Estimate Consistent w auto Clumped Platelets Not Reportable Plt Clumps, EDTA Not Reportable Large Platelets Not Reportable Giant Platelets Not Reportable Platelet Satelliting Not Reportable Plt Morphology Comment Not Reportable RBC Morphology Not Reportable Dimorphic RBCs Not Reportable Polychromasia Not Reportable Hypochromasia Not Reportable Poikilocytosis 1+ Anisocytosis 1+ Microcytosis Not Reportable Macrocytosis Not Reportable Spherocytes Not Reportable Pappenheimer Bodies Not Reportable Sickle Cells Not Reportable Target Cells Not Reportable Tear Drop Cells Not Reportable Ovalocytes Few Helmet Cells Not Reportable [place] Bodies Not Reportable [place] Rings Not Reportable [place] Cells Not Reportable Bite Cells Not Reportable Crenated Cell Not Reportable Elliptocytes Few Acanthocytes (Spur) Not Reportable Rouleaux Not Reportable Hemoglobin C Crystals Not Reportable Schistocytes Not Reportable Malaria parasites Not Reportable Braulio Bodies Not Reportable Hem Pathologist Commnt No Sodium 134 L Potassium 3.4 L Chloride 100.9 Carbon Dioxide 18 L Anion Gap 19 BUN 14 Creatinine 0.5 L Estimated GFR > 60 BUN/Creatinine Ratio 28 Glucose 62 L Calcium 7.8 L Total Bilirubin 0.30 AST 9 ALT 6 L Alkaline Phosphatase 67 Total Creatine Kinase CK-MB (CK-2) CK-MB (CK-2) Rel Index Troponin T Total Protein 4.9 L Albumin 2.8 L Albumin/Globulin Ratio 1.3 Lipase Urine Color Yellow Urine Turbidity Clear Urine pH 5.0 Ur Specific [place] 1.049 H Urine Protein <15 mg/dl Urine Glucose (UA) Neg Urine Ketones 20 Urine Blood Neg Urine Nitrite Pos Urine Bilirubin Neg Urine Urobilinogen < 2.0 Ur Leukocyte Esterase Neg Urine WBC (Auto) 1.0 Urine RBC (Auto) 3.0 U Epithel Cells (Auto) 1.0 Urine Bacteria (Auto) 1+ Urine Mucus Few Blood Type Antibody Screen 08/29/18 08/29/18 05:55 06:00 WBC RBC Hgb Hct MCV MCH MCHC RDW Plt Count Lymph % (Auto) [place] % (Auto) Eos % (Auto) Baso % (Auto) Lymph # [place] # Eos # Baso # Add Manual Diff Total Counted Seg Neutrophils % Seg Neuts % (Manual) Band Neutrophils % Lymphocytes % (Manual) Reactive Lymphs % (Man) Monocytes % (Manual) Eosinophils % (Manual) Basophils % (Manual) Metamyelocytes % Myelocytes % Promyelocytes % Blast Cells % Nucleated RBC % Seg Neutrophils # Seg Neutrophils # Man Band Neutrophils # Lymphocytes # (Manual) Abs React Lymphs (Man) Monocytes # (Manual) Eosinophils # (Manual) Basophils # (Manual) Metamyelocytes # Myelocytes # Promyelocytes # Blast Cells # WBC Morphology TNR Hypersegmented Neuts Hyposegmented Neuts Hypogranular Neuts Smudge Cells Toxic Granulation Toxic Vacuolation Dohle Bodies Pelger-Huet Anomaly Dalton Rods Platelet Estimate Clumped Platelets Plt Clumps, EDTA Large Platelets Giant Platelets Platelet Satelliting Plt Morphology Comment RBC Morphology Dimorphic RBCs Polychromasia Hypochromasia Poikilocytosis Anisocytosis Microcytosis Macrocytosis Spherocytes Pappenheimer Bodies Sickle Cells Target Cells Tear Drop Cells Ovalocytes Helmet Cells [place] Bodies [place] Rings [place] Cells Bite Cells Crenated Cell Elliptocytes Acanthocytes (Spur) Rouleaux Hemoglobin C Crystals Schistocytes Malaria parasites Braulio Bodies Hem Pathologist Commnt Sodium Potassium Chloride Carbon Dioxide Anion Gap BUN Creatinine Estimated GFR BUN/Creatinine Ratio Glucose Calcium Total Bilirubin AST ALT Alkaline Phosphatase Total Creatine Kinase CK-MB (CK-2) CK-MB (CK-2) Rel Index Troponin T Total Protein Albumin Albumin/Globulin Ratio Lipase Urine Color Urine Turbidity Urine pH Ur Specific [place] Urine Protein Urine Glucose (UA) Urine Ketones Urine Blood Urine Nitrite Urine Bilirubin Urine Urobilinogen Ur Leukocyte Esterase Urine WBC (Auto) Urine RBC (Auto) U Epithel Cells (Auto) Urine Bacteria (Auto) Urine Mucus Blood Type O POSITIVE Antibody Screen Negative Assessment and Plan 1.cecal mass 2.SBO 3.liver lesions (cysts vs mets?) 4.INEZ -afebrile -WBC WNL -H/H WNL -LFTs WNL -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 Reports continued abd discomfort along with discomfort from NGT. +flatus. Abd distended upon exam. No active signs of bleeding. -no recommendation for colonoscopy given current obstruction (contraindicated).- discussed with surgery (Dr. Holloway). -continue NGT and supportive care -will defer further management to surgery/oncology -will sign off, please call if needed <SILVANO ANDREWS - Last Filed: 08/29/18 23:22> Medications and Allergies Active Meds: Active Medications Acetaminophen (Tylenol) 650 mg PO Q4H PRN PRN Reason: Pain MILD(1-3)/Fever >100.5/[place] Last Admin: 08/29/18 21:45 Dose: 650 mg Documented by: Alprazolam (Xanax) 0.25 mg PO BID PRN PRN Reason: Anxiety Last Admin: 08/29/18 21:45 Dose: 0.25 mg Documented by: Enoxaparin Sodium (Lovenox) 40 mg SUB-Q DAILY [facility] Last Admin: 08/29/18 12:57 Dose: 40 mg Documented by: Potassium Chloride/Dextrose/Sod Cl (D5w/Ns W/Kcl 20meq) 20 meq in 1,000 mls @ 75 mls/hr IV DIRECT [facility] Last Admin: 08/29/18 15:38 Dose: 75 mls/hr Documented by: Ondansetron HCl (Zofran) 4 mg IV Q8H PRN PRN Reason: Nausea And Vomiting Last Admin: 08/28/18 18:40 Dose: 4 mg Documented by: Pantoprazole Sodium (Protonix) 40 mg IV DAILY [facility] Last Admin: 08/29/18 12:57 Dose: 40 mg Documented by: Propranolol HCl (Inderal La) 60 mg PO QDAY [facility] Last Admin: 08/29/18 12:56 Dose: 60 mg Documented by: Sodium Chloride (Sodium Chloride Flush Syringe 10 Ml) 10 ml IV BID [facility] Last Admin: 08/29/18 22:09 Dose: 10 ml Documented by: Sodium Chloride (Sodium Chloride Flush Syringe 10 Ml) 10 ml IV PRN PRN PRN Reason: LINE FLUSH Exam - Constitutional Vital Signs: Temp Pulse Resp BP Pulse Ox 97.8 F 70 20 164/69 95 08/29/18 13:23 08/29/18 13:23 08/29/18 21:45 08/29/18 13:23 08/29/18 20:54 - Labs CBC & Chem 7: 08/29/18 05:55 08/29/18 05:55 Lab Results: Laboratory Results - last 24 hr 08/29/18 08/29/18 08/29/18 05:55 05:55 05:55 WBC 7.0 RBC 3.74 Hgb 11.4 Hct 33.8 MCV 90 MCH 31 MCHC 34 RDW 16.2 H Plt Count 153 [place] % (Auto) Box Spinner Add Manual Diff Complete Total Counted 100 Seg Neuts % (Manual) 86.0 H Band Neutrophils % 0 Lymphocytes % (Manual) 5.0 L Reactive Lymphs % (Man) 0 Monocytes % (Manual) 9.0 H Eosinophils % (Manual) 0 Basophils % (Manual) 0 Metamyelocytes % 0 Myelocytes % 0 Promyelocytes % 0 Blast Cells % 0 Nucleated RBC % Not Reportable Seg Neutrophils # Man 6.0 Band Neutrophils # 0.0 Lymphocytes # (Manual) 0.4 L Abs React Lymphs (Man) 0.0 Monocytes # (Manual) 0.6 Eosinophils # (Manual) 0.0 Basophils # (Manual) 0.0 Metamyelocytes # 0.0 Myelocytes # 0.0 Promyelocytes # 0.0 Blast Cells # 0.0 WBC Morphology Not Reportable TNR Hypersegmented Neuts Not Reportable Hyposegmented Neuts Not Reportable Hypogranular Neuts Not Reportable Smudge Cells Not Reportable Toxic Granulation Not Reportable Toxic Vacuolation Not Reportable Dohle Bodies Not Reportable Pelger-Huet Anomaly Not Reportable Dalton Rods Not Reportable Platelet Estimate Consistent w auto Clumped Platelets Not Reportable Plt Clumps, EDTA Not Reportable Large Platelets Not Reportable Giant Platelets Not Reportable Platelet Satelliting Not Reportable Plt Morphology Comment Not Reportable RBC Morphology Not Reportable Dimorphic RBCs Not Reportable Polychromasia Not Reportable Hypochromasia Not Reportable Poikilocytosis 1+ Anisocytosis 1+ Microcytosis Not Reportable Macrocytosis Not Reportable Spherocytes Not Reportable Pappenheimer Bodies Not Reportable Sickle Cells Not Reportable Target Cells Not Reportable Tear Drop Cells Not Reportable Ovalocytes Few Helmet Cells Not Reportable [place] Bodies Not Reportable [place] Rings Not Reportable [place] Cells Not Reportable Bite Cells Not Reportable Crenated Cell Not Reportable Elliptocytes Few Acanthocytes (Spur) Not Reportable Rouleaux Not Reportable Hemoglobin C Crystals Not Reportable Schistocytes Not Reportable Malaria parasites Not Reportable Braulio Bodies Not Reportable Hem Pathologist Commnt No Sodium 134 L Potassium 3.4 L Chloride 100.9 Carbon Dioxide 18 L Anion Gap 19 BUN 14 Creatinine 0.5 L Estimated GFR > 60 BUN/Creatinine Ratio 28 Glucose 62 L Calcium 7.8 L Total Bilirubin 0.30 AST 9 ALT 6 L Alkaline Phosphatase 67 Total Protein 4.9 L Albumin 2.8 L Albumin/Globulin Ratio 1.3 Blood Type Antibody Screen 08/29/18 06:00 WBC RBC Hgb Hct MCV MCH MCHC RDW Plt Count [place] % (Auto) Add Manual Diff Total Counted Seg Neuts % (Manual) Band Neutrophils % Lymphocytes % (Manual) Reactive Lymphs % (Man) Monocytes % (Manual) Eosinophils % (Manual) Basophils % (Manual) Metamyelocytes % Myelocytes % Promyelocytes % Blast Cells % Nucleated RBC % Seg Neutrophils # Man Band Neutrophils # Lymphocytes # (Manual) Abs React Lymphs (Man) Monocytes # (Manual) Eosinophils # (Manual) Basophils # (Manual) Metamyelocytes # Myelocytes # Promyelocytes # Blast Cells # WBC Morphology Hypersegmented Neuts Hyposegmented Neuts Hypogranular Neuts Smudge Cells Toxic Granulation Toxic Vacuolation Dohle Bodies Pelger-Huet Anomaly Dalton Rods Platelet Estimate Clumped Platelets Plt Clumps, EDTA Large Platelets Giant Platelets Platelet Satelliting Plt Morphology Comment RBC Morphology Dimorphic RBCs Polychromasia Hypochromasia Poikilocytosis Anisocytosis Microcytosis Macrocytosis Spherocytes Pappenheimer Bodies Sickle Cells Target Cells Tear Drop Cells Ovalocytes Helmet Cells [place] Bodies [place] Rings Fletcher Cells Bite Cells Crenated Cell Elliptocytes Acanthocytes (Spur) Rouleaux Hemoglobin C Crystals Schistocytes Malaria parasites Braulio Bodies Hem Pathologist Commnt Sodium Potassium Chloride Carbon Dioxide Anion Gap BUN Creatinine Estimated GFR BUN/Creatinine Ratio Glucose Calcium Total Bilirubin AST ALT Alkaline Phosphatase Total Protein Albumin Albumin/Globulin Ratio Blood Type O POSITIVE Antibody Screen Negative Assessment and Plan Patient seen and examined. I have reviewed the advanced practitioner's evaluation, assessment, and plan, and agree with them. I note the following additions: patient with abd distension, tenderness, and significantly decreased BS on exam, based upon that and CT findings do not recommend prep and colonoscopy due to significantly increased risk of complication including perf, therefore will defer to surgical intervention and patient will need to follow up with GI as outpatient once the lesion is resected and treated. We will sign off, please call if needed
--- NOTE | 2018-08-29 11:04 | Consultation ---
History of Present Illness Consult date: 08/29/18 Requesting physician: ANDREEA GODWIN Consult reason: pre op evaluation History of present illness: The pt is an 88 yo female with a history of HTN, iron deficiency anemia. She is followed in our office by Dr. Kim. She presented with c/o nausea/vomiting, abdominal pain for approx 1 week prior to arrival. The patient states her pain is hard to describe and localized to the lower mid abdomen and radiates to the right side. There are no alleviating or exacerbating factors. It is not related to food although some foods such as meat tend to get stuck in her esophagus. Over the last 6 months she has noticed a 40lb or more unintentional weight loss. She has noticed a change in the color of her stool and thinks it is much darker and may be bloody. She sees Dr. Mayes (oncology) as an outpatient for iron infusions for anemia. She also notes that she has had looser stools. She has no cardiac complaints. She has been found to have cecal mass causing SBO with several enlarged lymph nodes, small liver lesions and several renal lesions and cardiology has been consulted for preoperative evaluation. ECG shows NSR with a pparently new LBBB. Echo done 09/2016 showed EF 50%, grade 1 diastolic dysfunction. Lexiscan MPI stress test 09/2015 which was negative, EF 50%. Past History Past Medical History: hypertension Past Surgical History: hysterectomy, total knee replacement, Other (Foot surgery, fatty tumor excision) Social history: . denies: smoking, alcohol abuse, prescription drug abuse Family history: no significant family history Medications and Allergies Allergies Allergy/AdvReac Type Severity Reaction Status Date / Time acetaminophen Allergy Unknown Verified 08/28/18 11:05 [From Darvocet-N 100] aspirin Allergy Unknown Verified 08/28/18 11:05 codeine Allergy Unknown Verified 08/28/18 11:05 propoxyphene napsylate Allergy Unknown Verified 08/28/18 11:05 [From Darvocet-N 100] Home Medications Medication Instructions Recorded Confirmed Last Taken Type Propranolol HCl 60 mg PO QDAY 09/28/15 08/29/18 08/26/18 22:00 History ALPRAZolam [Xanax TAB] 0.25 mg PO BID PRN #10 tab 10/01/15 Unknown Rx Active Meds: Active Medications Acetaminophen (Tylenol) 650 mg PO Q4H PRN PRN Reason: Pain MILD(1-3)/Fever >100.5/[place] Alprazolam (Xanax) 0.25 mg PO BID PRN PRN Reason: Anxiety Enoxaparin Sodium (Lovenox) 40 mg SUB-Q DAILY [facility] Sodium Chloride (Nacl 0.9% 1000 Ml) 1,000 mls @ 75 mls/hr IV DIRECT [facility] Last Admin: 08/28/18 18:40 Dose: 75 mls/hr Documented by: Potassium Chloride (Kcl 10meq/100ml) 10 meq in 100 mls @ 100 mls/hr IV Q1H [facility] Stop: 08/29/18 13:59 Ondansetron HCl (Zofran) 4 mg IV Q8H PRN PRN Reason: Nausea And Vomiting Last Admin: 08/28/18 18:40 Dose: 4 mg Documented by: Pantoprazole Sodium (Protonix) 40 mg IV DAILY [facility] Last Admin: 08/28/18 22:35 Dose: 40 mg Documented by: Propranolol HCl (Inderal La) 60 mg PO QDAY [facility] Sodium Chloride (Sodium Chloride Flush Syringe 10 Ml) 10 ml IV BID [facility] Last Admin: 08/28/18 22:35 Dose: 10 ml Documented by: Sodium Chloride (Sodium Chloride Flush Syringe 10 Ml) 10 ml IV PRN PRN PRN Reason: LINE FLUSH Review of Systems Constitutional: weight loss, no weight gain, no fever, no chills, no sweats Ears, nose, mouth and throat: no ear pain, no nose pain, no sinus pressure, no sinus pain Cardiovascular: no chest pain, no orthopnea, no palpitations, no rapid/irregular heart beat, no edema, no syncope, no lightheadedness, no shortness of breath, no dyspnea on exertion, no paroxysmal nocturnal dyspnea, no leg edema Respiratory: no cough, no shortness of breath, no dyspnea on exertion, no congestion, no wheezing, no pain on inspiration Gastrointestinal: abdominal pain, nausea, vomiting, change in bowel habits Genitourinary Female: no pelvic pain, no flank pain, no dysuria, no urinary frequency, no urgency Musculoskeletal: no neck stiffness, no neck pain, no shooting arm pain, no arm numbness/tingling, no low back pain, no shooting leg pain Integumentary: no rash, no pruritis, no redness, no sores, no wounds Neurological: no head injury, no paralysis, no weakness, no parathesias, no numbness, no tingling, no seizures, no syncope Psychiatric: no anxiety Endocrine: no cold intolerance, no heat intolerance Hematologic/Lymphatic: no easy bruising, no easy bleeding Allergic/Immunologic: no urticaria, no wheezing Physical Examination Vital Signs Temp Pulse Resp BP Pulse Ox 97.5 F L 77 18 138/73 95 08/28/18 11:14 08/28/18 11:14 08/28/18 11:14 08/28/18 11:14 08/28/18 11:14 General appearance: no acute distress HEENT: Positive: PERRL, Normocephaly, Mucus Membranes Moist Neck: Positive: neck supple, trachea midline Cardiac: Positive: Reg Rate and Rhythm, S1/S2 Lungs: Positive: Decreased Breath Sounds Neuro: Positive: Grossly Intact Abdomen: Positive: Other (distended) Skin: Negative: Rash Musculoskeletal: No Pain Results 08/29/18 05:55 08/29/18 05:55 Cardiac Enzymes 08/28/18 08/28/18 08/29/18 Range/Units 12:41 12:41 05:55 AST 12 9 (5-40) units/L CK-MB (CK-2) 2.3 (0.0-4.0) ng/mL CBC 08/28/18 08/29/18 Range/Units 12:41 05:55 WBC 8.6 7.0 (4.5-11.0) K/mm3 RBC 4.37 3.74 (3.65-5.03) M/mm3 Hgb 13.4 11.4 (10.1-14.3) gm/dl Hct 39.2 33.8 (30.3-42.9) % Plt Count 187 153 (140-440) K/mm3 Lymph # 0.8 L (1.2-5.4) K/mm3 [place] # 0.9 H (0.0-0.8) K/mm3 Eos # 0.0 (0.0-0.4) K/mm3 Baso # 0.0 (0.0-0.1) K/mm3 Comprehensive Metabolic Panel 08/28/18 08/29/18 Range/Units 12:41 05:55 Sodium 131 L 134 L (137-145) mmol/L Potassium 4.0 3.4 L (3.6-5.0) mmol/L Chloride 95.8 L 100.9 (98-107) mmol/L Carbon Dioxide 20 L 18 L (22-30) mmol/L BUN 21 H 14 (7-17) mg/dL Creatinine 0.7 0.5 L (0.7-1.2) mg/dL Glucose 92 62 L (65-100) mg/dL Calcium 8.5 7.8 L (8.4-10.2) mg/dL AST 12 9 (5-40) units/L ALT 7 6 L (7-56) units/L Alkaline Phosphatase 77 67 (35-129) units/L Total Protein 5.6 L 4.9 L (6.3-8.2) g/dL Albumin 3.1 L 2.8 L (3.9-5) g/dL - Imaging and Cardiology Echo: report reviewed ( 09/2016 showed EF 50%, grade 1 diastolic dysfunction. ) EKG: report reviewed, image reviewed EKG interpretations - Telemetry EKG Rhythm: Sinus Rhythm - EKG Sinus rhythms and dysrhythmias: sinus rhythm AV and intraventricular conduction: left bundle branch block Assessment and Plan Pt presented with abdominal pain, nausea and vomiting and found to have cecal mass causing SBO with several enlarged lymph nodes, small liver lesions and several renal lesions. Cardiology has been consulted for preoperative evaluation. ECG shows NSR with apparently new LBBB (not present on last ECG in office 09/2016). Pt denies any cardiac complaints. Echo done 09/2016 showed EF 50%, grade 1 diastolic dysfunction. Lexiscan MPI stress test 09/2015 which was negative, EF 50%. Will obtain echo and then provide preoperative cardiac risk stratification pending echo results. Replete lbayne PRN. The patient has been seen in conjunction with Dr. Yaron Al who agrees with the assessment and plan of care. - Patient Problems (1) Acute abdominal pain Current Visit: Yes Status: Acute (2) Nausea and vomiting Current Visit: Yes Status: Acute (3) Cecum mass Current Visit: Yes Status: Acute (4) Small bowel obstruction Current Visit: Yes Status: Acute (5) HTN (hypertension) Current Visit: Yes Status: Chronic (6) LBBB (left bundle branch block) Current Visit: Yes Status: Chronic (7) Hypokalemia Current Visit: Yes Status: Acute
[2018-08-29] MEDS: INDERAL LA PO SCH (12:56)
[2018-08-29] MEDS: LOVENOX SUB-Q SCH (12:57)
[2018-08-29] MEDS: PROTONIX IV SCH (12:57)
[2018-08-29] MEDS: SODIUM CHLORIDE FLUSH SYRINGE 10 ML IV SCH ×2 (12:57→22:09)
[2018-08-29] MEDS: KCL 10MEQ/100ML 10 MEQ/100 ML BAG IV SCH ×2 (12:59→17:32)
--- NOTE | 2018-08-29 15:26 | Consultation ---
REFERRED BY: Dr. Mtz. REASON FOR CONSULTATION: Cecal mass with lymphadenopathy. HISTORY OF PRESENT ILLNESS: I saw the patient, an 88-year-old female in the medical floor. The patient has a history of hypertension and in the past, she had anemia, needing transfusion, but none recently. She came to the hospital because of nausea, vomiting, abdominal pain for a week. Radiology in the hospital showed cecal mass with lymphadenopathy and with bowel obstruction. The patient has been seen by the surgical team. There is a plan for colonoscopy. There is a suspicion of colon cancer. I have been asked to evaluate the patient. At this time, the patient has an NG tube. Her abdominal pain is better. No headache, no visual disturbances. No ear discharge, no chest pain, no palpitations. History of nausea and vomiting present. The patient has been following with Dr. Mayes, Oncology as an outpatient for iron deficiency anemia. There is a history of loss of weight present and mention of probable dark stools. Last colonoscopy was more than 5 years ago. PAST MEDICAL HISTORY: Anemia, needing iron infusion, Dr. Mayes. PAST SURGICAL HISTORY: Fatty tumor removal. SOCIAL HISTORY: Lives alone. A few family members are nearby. FAMILY HISTORY: Noncontributory. ALLERGIES: ASPIRIN, CODEINE, DARVOCET. HOME MEDICATIONS: Include propranolol. PHYSICAL EXAMINATION: VITAL SIGNS: Temperature 98.8, pulse 65, respirations 20, BP 169/61. HEENT: No pallor, no icterus. NECK: No neck lymph nodes. NG tube present. HEART: S1, S2. LUNGS: Clear to auscultation anteriorly. ABDOMEN: Soft. No rebound tenderness present. EXTREMITIES: No calf tenderness. NEUROLOGIC: Alert, awake. LABORATORY DATA: White cells 7, hemoglobin 11.4, MCV 90, platelet 153, potassium 3.4, creatinine 0.5, calcium 7.8, and bilirubin 0.3. RADIOLOGY: 1. CT chest, abdomen, and pelvis was done. CT abdomen and pelvis shows cecal mass, small-bowel obstruction, renal cyst, lymph nodes, pericecal area larger is 2.2 cm. ASSESSMENT: 1. Cecal mass. 2. Small-bowel obstruction. 3. Lymphadenopathy. 4. History of anemia, needing transfusion and she has been followed with Dr. Mayes for IV iron. 5. History of renal cyst. 6. History of liver cyst. 7. In the liver, radiology mentions cyst versus neoplasm. PLAN: 1. We will await colonoscopy biopsy 2. CEA has been ordered. 3. Liver lesions mets versus cyst. 4. Nausea, abdominal pain secondary to tumor issues. I will follow the patient during inpatient stay. We will wait for the pathology. Once the patient has had GI evaluation, she will follow up with Dr. Mayes on an outpatient basis. JOB# [id number] NM/NTS
[2018-08-29] MEDS: D5W/NS W/KCL 20MEQ 20 MEQ/1,000 ML BAG IV SCH (15:38)
--- NOTE | 2018-08-29 17:08 | Progress Note ---
Assessment and Plan - Patient Problems (1) Cecum mass Current Visit: Yes Status: Acute Plan to address problem: Pt stable. Spoke with GI earlier today. Understandably, they're unable to do a colonoscopy. We need to move forward with surgery. Awaiting cardiology preop evaluation. Once that risk assessment is done, I told the patient that we would sit down and discuss the risks and benefits and then make a plan. Most likely, we will be planning an open right hemicolectomy. The bowel distention/obstruction is a contraindication to laparoscopic resection. Follow-up tomorrow. Continue NG tube to low intermittent suction. Please call with questions. Time=15min Subjective Date of service: 08/29/18 Patient Reports: Positive: no new complaints, other (the NG tube causes her a lot of discomfort. The discomfort was so much that she cannot tolerate being transported to MRI.). Negative: nausea, vomiting Objective Vital Signs - 12hr 08/29/18 08/29/18 08/29/18 07:45 09:17 13:23 Temperature 98.8 F 97.8 F Pulse Rate 65 70 Respiratory 20 20 Rate Blood Pressure 169/61 164/69 O2 Sat by Pulse 96 95 95 Oximetry - General physical appearance no distress, no pain, other (frail, elderly woman) - Eyes normal occular movement - Respiratory normal expansion, normal respiratory effort - Abdomen soft, not tender, bowel sounds hypoactive, distended (mild), not rebound, not guarding, not rigid, not wound, surgical scars (well healed) - Psychiatric oriented to time, oriented to person, oriented to place, speech is normal, memory intact - Labs 08/29/18 05:55 08/29/18 05:55 Diabetes panel 08/29/18 Range/Units 05:55 Sodium 134 L (137-145) mmol/L Potassium 3.4 L (3.6-5.0) mmol/L Chloride 100.9 (98-107) mmol/L Carbon Dioxide 18 L (22-30) mmol/L BUN 14 (7-17) mg/dL Creatinine 0.5 L (0.7-1.2) mg/dL Glucose 62 L (65-100) mg/dL Calcium 7.8 L (8.4-10.2) mg/dL AST 9 (5-40) units/L ALT 6 L (7-56) units/L Alkaline Phosphatase 67 (35-129) units/L Total Protein 4.9 L (6.3-8.2) g/dL Albumin 2.8 L (3.9-5) g/dL Calcium panel 08/29/18 Range/Units 05:55 Calcium 7.8 L (8.4-10.2) mg/dL Albumin 2.8 L (3.9-5) g/dL Pituitary panel 08/29/18 Range/Units 05:55 Sodium 134 L (137-145) mmol/L Potassium 3.4 L (3.6-5.0) mmol/L Chloride 100.9 (98-107) mmol/L Carbon Dioxide 18 L (22-30) mmol/L BUN 14 (7-17) mg/dL Creatinine 0.5 L (0.7-1.2) mg/dL Glucose 62 L (65-100) mg/dL Calcium 7.8 L (8.4-10.2) mg/dL Adrenal panel 08/29/18 Range/Units 05:55 Sodium 134 L (137-145) mmol/L Potassium 3.4 L (3.6-5.0) mmol/L Chloride 100.9 (98-107) mmol/L Carbon Dioxide 18 L (22-30) mmol/L BUN 14 (7-17) mg/dL Creatinine 0.5 L (0.7-1.2) mg/dL Glucose 62 L (65-100) mg/dL Calcium 7.8 L (8.4-10.2) mg/dL Total Bilirubin 0.30 (0.1-1.2) mg/dL AST 9 (5-40) units/L ALT 6 L (7-56) units/L Alkaline Phosphatase 67 (35-129) units/L Total Protein 4.9 L (6.3-8.2) g/dL Albumin 2.8 L (3.9-5) g/dL
[2018-08-29] MEDS: XANAX PO PRN (21:45)
[2018-08-30] MEDS: D5W/NS W/KCL 20MEQ 20 MEQ/1,000 ML BAG IV SCH ×2 (03:59→18:14)
[2018-08-30 05:24] LABS: Hematocrit 32.6 % (30.3-42.9); Hemoglobin 11.1 gm/dl (10.1-14.3); Mean Corpuscular HGB Conc 34 % (30-34); Mean Corpuscular Volume 90 fl (79-97); Platelet Count 139 K/mm3 (140-440); Red Blood Count 3.61 M/mm3 (3.65-5.03); Red Cell Distribution Width 16.3 % (13.2-15.2)
[2018-08-30 05:52] LABS: BUN/Creatinine Ratio 18; Blood Urea Nitrogen 9 mg/dL (7-17); Calcium 7.9 mg/dL (8.4-10.2); Hemolysis Index 3
[2018-08-30] MEDS: INDERAL LA PO SCH (09:16)
[2018-08-30] MEDS: XANAX PO PRN (09:16)
[2018-08-30] MEDS: LOVENOX SUB-Q SCH (09:16)
[2018-08-30] MEDS: PROTONIX IV SCH (09:17)
[2018-08-30] MEDS: SODIUM CHLORIDE FLUSH SYRINGE 10 ML IV SCH ×2 (09:17→22:10)
--- NOTE | 2018-08-30 12:00 | Magnetic Resonance Report ---
MRI ABDOMEN WITHOUT CONTRAST : 08/30/18 09:52:00 CLINICAL: Colon mass and liver lesions by CT. COMPARISON :CT abdomen and pelvis with contrast 08/28/18 TECHNIQUE: Axial T1 in phase and opposed phase, coronal and axial T2 and axial T2 fat sat sequences on a 1.5 [place] magnet. The patient could not adequately breath-hold, so IV contrast was not given. FINDINGS: The quality of the examination is degraded by respiratory motion. Normal liver size, contour and overall signal. Contiguous cysts in the lateral segment of the left lobe of the liver measured 2.8 x 2.2 cm and 1.9 x 1.3 cm. A 1.6 x 1.4 cm cyst of the medial segment of the left lobe. No other liver lesions identified. The gallbladder and bile ducts are normal. Mild perihepatic and perisplenic ascites. The gallbladder and bile ducts are normal. Normal stomach, duodenum, pancreas and spleen. The spleen measures 7.8 cm maximum dimension. Normal adrenal glands. Bilateral benign renal cysts. The largest on the right is in the upper pole and measures 3.5 cm. The largest on the left is in the upper pole and measures 1.2 cm. The renal collecting systems and ureters are nondilated. The previously identified cecal mass measures 8 cm craniocaudal dimension by 6.4 cm transverse dimension by 5.8 cm AP dimension. No large or small bowel obstruction. The abdominal aorta measures 2.2 cm maximum dimension. Aortic plaque and tortuosity. The inferior vena cava is normal. No pericaval or periaortic lymphadenopathy. Numerous right lower quadrant lymph nodes are enlarged and correlate with abnormal lymph nodes identified on the CT. The bones and soft tissues are unremarkable. IMPRESSION: 1. Benign left hepatic cysts and no suspicious liver mass. 2. Bilateral benign renal cysts. 3. An 8 cm cecal mass. 4. 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
--- NOTE | 2018-08-30 12:24 | Progress Note ---
Assessment and Plan Echo reviewed - EF 50-55%, impaired relaxation, mild AR. Currently stable cardiac status. Pt is currently at moderately high cardiovascular risk in setting of advanced age. No current immediate cardiac contraindications to proceeding with surgery at this time. The patient has been seen in conjunction with Dr. Yaron Al who agrees with the assessment and plan of care. - Patient Problems (1) Acute abdominal pain Current Visit: Yes Status: Acute (2) Nausea and vomiting Current Visit: Yes Status: Acute (3) Cecum mass Current Visit: Yes Status: Acute (4) Small bowel obstruction Current Visit: Yes Status: Acute (5) HTN (hypertension) Current Visit: Yes Status: Chronic (6) LBBB (left bundle branch block) Current Visit: Yes Status: Chronic (7) Hypokalemia Current Visit: Yes Status: Acute Subjective Date of service: 08/30/18 Principal diagnosis: cecal mass Interval history: pt with no current cardiac complaints. Objective Last Vital Signs Temp 98.0 F 08/30/18 07:31 Pulse 56 L 08/30/18 10:00 Resp 20 08/30/18 07:31 BP 150/64 08/30/18 09:16 Pulse Ox 96 08/30/18 10:00 - Physical Examination General: No Apparent Distress HEENT: Positive: PERRL, Normocephaly, Mucus Membranes Moist Neck: Positive: neck supple, trachea midline Cardiac: Positive: Reg Rate and Rhythm, S1/S2 Lungs: Positive: Decreased Breath Sounds Neuro: Positive: Grossly Intact Abdomen: Positive: Other (distended) Skin: Negative: Rash Musculoskeletal: No Pain - Labs and Meds CBC 08/30/18 Range/Units 04:59 WBC 5.7 (4.5-11.0) K/mm3 RBC 3.61 L (3.65-5.03) M/mm3 Hgb 11.1 (10.1-14.3) gm/dl Hct 32.6 (30.3-42.9) % Plt Count 139 L (140-440) K/mm3 Comprehensive Metabolic Panel 08/30/18 Range/Units 04:59 Sodium 138 (137-145) mmol/L Potassium 3.2 L (3.6-5.0) mmol/L Chloride 105.9 (98-107) mmol/L Carbon Dioxide 21 L (22-30) mmol/L BUN 9 (7-17) mg/dL Creatinine 0.5 L (0.7-1.2) mg/dL Glucose 84 (65-100) mg/dL Calcium 7.9 L (8.4-10.2) mg/dL - Imaging and Cardiology EKG: report reviewed, image reviewed Echo: report reviewed ( 09/2016 showed EF 50%, grade 1 diastolic dysfunction. ) - EKG Sinus rhythms and dysrhythmias: sinus rhythm AV and intraventricular conduction: left bundle branch block
--- NOTE | 2018-08-30 12:53 | Hem/Onc Progress Note ---
Assessment and Plan 1. Cecal mass. 2. Small-bowel obstruction. 3. Lymphadenopathy in abdomen 4. History of anemia, needing transfusion and she has been followed with Dr. Mayes for IV iron. 5. History of renal cyst. 6. History of liver cyst. 7. In the liver, radiology mentions cyst versus neoplasm. PLAN: 1. We will await colonoscopy biopsy 2. CEA ordered. 3. Liver lesions mets versus cyst. 4. Nausea, abdominal pain secondary to tumor issues. I will follow the patient during inpatient stay. We will wait for the pathology. Once the patient is d/c she will follow up with Dr. Mayes on an outpatient basis. d/w daughter and CAMERON it appear cardio eval and SX planned - Patient Problems (1) Cecum mass Current Visit: Yes Status: Acute Objective - Constitutional Vitals: Last Vital Signs Temp 98.0 F 08/30/18 07:31 Pulse 56 L 08/30/18 10:00 Resp 20 08/30/18 07:31 BP 150/64 08/30/18 09:16 Pulse Ox 96 08/30/18 10:00 - EENT Eyes: EOM intact ENT: hearing intact Lymph node exam: negative cervical - Neck Neck: normal ROM - Respiratory Respiratory effort: Positive: normal Respiratory: bilateral: CTA (anteriroly) - Cardiovascular Heart Sounds: Present: S1 & S2 Extremities: normal temperature - Gastrointestinal General gastrointestinal: Present: soft, non-tender Rectal Exam: deferred - Genitourinary Female genitourinary: Present: deferred - Integumentary Integumentary: warm - Musculoskeletal Musculoskeletal: generalized weakness - Neurologic Neurologic: moves all extremities - Labs Lab Results: Laboratory Results - last 24 hr 08/30/18 08/30/18 04:59 04:59 WBC 5.7 RBC 3.61 L Hgb 11.1 Hct 32.6 MCV 90 MCH 31 MCHC 34 RDW 16.3 H Plt Count 139 L Sodium 138 Potassium 3.2 L Chloride 105.9 Carbon Dioxide 21 L Anion Gap 14 BUN 9 Creatinine 0.5 L Estimated GFR > 60 BUN/Creatinine Ratio 18 Glucose 84 Calcium 7.9 L Magnesium 1.90 Medications & Allergies - Medications Allergies/Adverse Reactions: Allergies acetaminophen [From Darvocet-N 100] Allergy (Verified 08/28/18 11:05) Unknown aspirin Allergy (Verified 08/28/18 11:05) Unknown codeine Allergy (Verified 08/28/18 11:05) Unknown propoxyphene napsylate [From [facility]-N 100] Allergy (Verified 08/28/18 11:05) Unknown Home Medications: Home Medications Medication Instructions Recorded Confirmed Last Taken Type RX: Propranolol HCl 60 mg PO QDAY 09/28/15 08/29/18 08/26/18 22:00 History ALPRAZolam [Xanax TAB] 0.25 mg PO BID PRN #10 tab 10/01/15 Unknown Rx Active Medications: Generic Name Dose Route Start Last Admin Trade Name Freq PRN Reason Stop Dose Admin Acetaminophen 650 mg 08/28/18 16:24 08/29/18 21:45 Tylenol PO 650 mg Q4H PRN Administration Pain MILD(1-3)/Fever >100.5/[place] Alprazolam 0.25 mg 08/28/18 16:26 08/30/18 09:16 Xanax PO 0.25 mg BID PRN Administration Anxiety Enoxaparin Sodium 40 mg 08/29/18 10:00 08/30/18 09:16 Lovenox SUB-Q 40 mg DAILY [facility] Administration Potassium Chloride/Dextrose/Sod Cl 20 meq in 1,000 mls @ 75 mls/hr 08/29/18 14:00 08/30/18 03:59 D5w/Ns W/Kcl 20meq IV 75 mls/hr DIRECT [facility] Administration Ondansetron HCl 4 mg 08/28/18 16:24 08/28/18 18:40 Zofran IV 4 mg Q8H PRN Administration Nausea And Vomiting Pantoprazole Sodium 40 mg 08/28/18 18:00 08/30/18 09:17 Protonix IV 40 mg DAILY [facility] Administration Propranolol HCl 60 mg 08/29/18 10:00 08/30/18 09:16 Inderal La PO 60 mg QDAY [facility] Administration Sodium Chloride 10 ml 08/28/18 22:00 08/30/18 09:17 Sodium Chloride Flush Syringe 10 Ml IV 10 ml BID [facility] Administration Sodium Chloride 10 ml 08/28/18 16:24 Sodium Chloride Flush Syringe 10 Ml IV PRN PRN LINE FLUSH
--- NOTE | 2018-08-30 14:42 | Progress Note ---
Assessment and Plan Assessment and plan: 88 YO Female with HTN, Anemia requiring blood transfusion presents to ED for evaluation. Pt states that has experienced nausea and multiple episodes of vomiting and abdominal pain over the past 1 week. Pt states that her pain is 3- 5/10, constant, diffuse, without exacerbating, or alleviating factors. Pt transported to [facility] via private vehicle. 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 complicated by PSBO on CT of abdomen/pelvis. Pt admitted to [facility] unit. Pt seen and evaluated by surgical team in ED. Pt denies fever, chills, chest pain, palpitations, trauma, unintentional weight loss, night sweats, productive cough, skin rash, or recent ill contacts. Prior admission on 09/28/15 reviewed. All listed medication reconciled at time of exam. ECG shows NSR with apparently new LBBB (not present on last ECG in office 09/2016). Echo done 09/2016 showed EF 50%, grade 1 diastolic dysfunction. Lexiscan MPI stress test 09/2015 which was negative, EF 50%. CT A/P IMPRESSION: 1. 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 MRI showed cecal mass and mesenteric lymphadenopathy. 2. Several enlarged pericecal lymph nodes concerning for neoplastic involvement. Stranding and nodularity of the left omentum could represent omental carcinomatosis. 3. Several simple hepatic cysts. Several additional low-attenuation hepatic lesions which are too small to characterize but may represent small cysts or metastatic lesions. MRI showed cysts, additional metastases. 4. Small volume of scattered ascites. 5. Several nonspecific low-attenuation renal lesions which are higher in attenuation than simple cysts and may represent proteinaceous or hemorrhagic cysts versus solid renal neoplasms. Assessment/Plan Cecal Mass: Surgery follow, GI evaluated and signed off. 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 Possible Metastatic lesion to liver and omentum: MRI didn't show hepatic metastasis. Hyponatermia: resolved. Metabolic Acidosis: Anticipate correction with hydration Nausea and Vomiting: Continue NGT, zofran PRN Peritoneal irration/acute abdominal pain secondary to small bowel obstruction: Management as noted above Iron deficency anemia: As noted above patient follows with hematology oncology. Considering coronary consult hematology. Left bundle branch block: Repeat echocardiogram ordered for perioperative risk stratification Hypokalemia: Replace Hypoglycemia: Start D5 with gentle hydration DVT/GI prophy History Interval history: Patient was seen and evaluated after she came back from [facility]. Patient is complaining generalized soreness. Hospitalist Physical - Physical exam Narrative exam: Not in cardiopulmonary distress. The patient appeared well nourished and normally developed. Vital signs as documented. Head exam is unremarkable. No scleral icterus . Neck is without jugular venous distension, thyromegaly, or carotid bruits. Lungs are clear to auscultation. Cardiac exam reveals regular rate and Rhythm. First and second heart sounds normal. No murmurs, rubs or gallops. Abdominal exam reveals distended abdomen. Extremities are nonedematous and both femoral and pedal pulses are normal. 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 No focal weakness. - Constitutional Vitals: Temp Pulse Resp BP Pulse Ox 98.0 F 56 L 20 150/64 96 08/30/18 07:31 08/30/18 10:00 08/30/18 07:31 08/30/18 09:16 08/30/18 10:00 General appearance: Present: mild distress Results - Labs CBC & Chem 7: 08/30/18 04:59 08/31/18 08:10 Labs: Laboratory Last Values WBC 5.7 K/mm3 (4.5-11.0) 08/30/18 04:59 RBC 3.61 M/mm3 (3.65-5.03) L 08/30/18 04:59 Hgb 11.1 gm/dl (10.1-14.3) 08/30/18 04:59 Hct 32.6 % (30.3-42.9) 08/30/18 04:59 MCV 90 fl (79-97) 08/30/18 04:59 MCH 31 pg (28-32) 08/30/18 04:59 MCHC 34 % (30-34) 08/30/18 04:59 RDW 16.3 % (13.2-15.2) H 08/30/18 04:59 Plt Count 139 K/mm3 (140-440) L 08/30/18 04:59 Lymph % (Auto) 9.1 % (13.4-35.0) L 08/28/18 12:41 Douglas % (Auto) Control Panel Assembler 08/29/18 05:55 Eos % (Auto) 0.1 % (0.0-4.3) 08/28/18 12:41 Baso % (Auto) 0.3 % (0.0-1.8) 08/28/18 12:41 Lymph # 0.8 K/mm3 (1.2-5.4) L 08/28/18 12:41 Douglas # 0.9 K/mm3 (0.0-0.8) H 08/28/18 12:41 Eos # 0.0 K/mm3 (0.0-0.4) 08/28/18 12:41 Baso # 0.0 K/mm3 (0.0-0.1) 08/28/18 12:41 Add Manual Diff Complete 08/29/18 05:55 Total Counted 100 08/29/18 05:55 Seg Neutrophils % 80.3 % (40.0-70.0) H 08/28/18 12:41 Seg Neuts % (Manual) 86.0 % (40.0-70.0) H 08/29/18 05:55 0 % 08/29/18 05:55 5.0 % (13.4-35.0) L 08/29/18 05:55 Reactive Lymphs % (Man) 0 % 08/29/18 05:55 9.0 % (0.0-7.3) H 08/29/18 05:55 0 % (0.0-4.3) 08/29/18 05:55 0 % (0.0-1.8) 08/29/18 05:55 0 % 08/29/18 05:55 0 % 08/29/18 05:55 0 % 08/29/18 05:55 0 % 08/29/18 05:55 Nucleated RBC % Not Reportable 08/29/18 05:55 Seg Neutrophils # 6.9 K/mm3 (1.8-7.7) 08/28/18 12:41 Seg Neutrophils # Man 6.0 K/mm3 (1.8-7.7) 08/29/18 05:55 Band Neutrophils # 0.0 K/mm3 08/29/18 05:55 0.4 K/mm3 (1.2-5.4) L 08/29/18 05:55 Abs React Lymphs (Man) 0.0 K/mm3 08/29/18 05:55 0.6 K/mm3 (0.0-0.8) 08/29/18 05:55 0.0 K/mm3 (0.0-0.4) 08/29/18 05:55 0.0 K/mm3 (0.0-0.1) 08/29/18 05:55 0.0 K/mm3 08/29/18 05:55 0.0 K/mm3 08/29/18 05:55 0.0 K/mm3 08/29/18 05:55 Blast Cells # 0.0 K/mm3 08/29/18 05:55 WBC Morphology Not Reportable 08/29/18 05:55 WBC Morphology TNR 08/29/18 05:55 Hypersegmented Neuts Not Reportable 08/29/18 05:55 Hyposegmented Neuts Not Reportable 08/29/18 05:55 Hypogranular Neuts Not Reportable 08/29/18 05:55 Not Reportable 08/29/18 05:55 Not Reportable 08/29/18 05:55 Not Reportable 08/29/18 05:55 Not Reportable 08/29/18 05:55 Not Reportable 08/29/18 05:55 Not Reportable 08/29/18 05:55 Consistent w auto 08/29/18 05:55 Not Reportable 08/29/18 05:55 Plt Clumps, EDTA Not Reportable 08/29/18 05:55 Not Reportable 08/29/18 05:55 Not Reportable 08/29/18 05:55 Not Reportable 08/29/18 05:55 Plt Morphology Comment Not Reportable 08/29/18 05:55 RBC Morphology Not Reportable 08/29/18 05:55 Dimorphic RBCs Not Reportable 08/29/18 05:55 Not Reportable 08/29/18 05:55 Not Reportable 08/29/18 05:55 1+ 08/29/18 05:55 1+ 08/29/18 05:55 Not Reportable 08/29/18 05:55 Not Reportable 08/29/18 05:55 Not Reportable 08/29/18 05:55 Not Reportable 08/29/18 05:55 Not Reportable 08/29/18 05:55 Not Reportable 08/29/18 05:55 Not Reportable 08/29/18 05:55 Few 08/29/18 05:55 Not Reportable 08/29/18 05:55 Not Reportable 08/29/18 05:55 Not Reportable 08/29/18 05:55 Not Reportable 08/29/18 05:55 Not Reportable 08/29/18 05:55 Not Reportable 08/29/18 05:55 Few 08/29/18 05:55 Acanthocytes (Spur) Not Reportable 08/29/18 05:55 Rouleaux Not Reportable 08/29/18 05:55 Not Reportable 08/29/18 05:55 Not Reportable 08/29/18 05:55 Not Reportable 08/29/18 05:55 Not Reportable 08/29/18 05:55 Hem Pathologist Commnt No 08/29/18 05:55 Sodium 138 mmol/L (137-145) 08/30/18 04:59 Potassium 3.2 mmol/L (3.6-5.0) L 08/30/18 04:59 Chloride 105.9 mmol/L (98-107) 08/30/18 04:59 Carbon Dioxide 21 mmol/L (22-30) L 08/30/18 04:59 14 mmol/L 08/30/18 04:59 BUN 9 mg/dL (7-17) 08/30/18 04:59 0.5 mg/dL (0.7-1.2) L 08/30/18 04:59 Estimated GFR > 60 ml/min 08/30/18 04:59 18 % 08/30/18 04:59 Glucose 84 mg/dL (65-100) 08/30/18 04:59 Calcium 7.9 mg/dL (8.4-10.2) L 08/30/18 04:59 Magnesium 1.90 mg/dL (1.7-2.3) 08/30/18 04:59 0.30 mg/dL (0.1-1.2) 08/29/18 05:55 AST 9 units/L (5-40) 08/29/18 05:55 ALT 6 units/L (7-56) L 08/29/18 05:55 67 units/L (35-129) 08/29/18 05:55 40 units/L (30-135) 08/28/18 12:41 CK-MB (CK-2) 2.3 ng/mL (0.0-4.0) 08/28/18 12:41 CK-MB (CK-2) Rel Index 5.7 (0-4) H 08/28/18 12:41 < 0.010 ng/mL (0.00-0.029) 08/28/18 12:41 4.9 g/dL (6.3-8.2) L 08/29/18 05:55 2.8 g/dL (3.9-5) L 08/29/18 05:55 1.3 % 08/29/18 05:55 15 units/L (13-60) 08/28/18 12:41 Yellow (Yellow) 08/28/18 Unknown Clear (Clear) 08/28/18 Unknown 5.0 (5.0-7.0) 08/28/18 Unknown Ur Specific [place] 1.049 (1.003-1.030) H 08/28/18 Unknown <15 mg/dl mg/dL (Negative) 08/28/18 Unknown Neg mg/dL (Negative) 08/28/18 Unknown 20 mg/dL (Negative) 08/28/18 Unknown Neg (Negative) 08/28/18 Unknown Pos (Negative) 08/28/18 Unknown Neg (Negative) 08/28/18 Unknown < 2.0 mg/dL (<2.0) 08/28/18 Unknown Ur Leukocyte Esterase Neg (Negative) 08/28/18 Unknown 1.0 /HPF (0.0-6.0) 08/28/18 Unknown 3.0 /HPF (0.0-6.0) 08/28/18 Unknown U Epithel Cells (Auto) 1.0 /HPF (0-13.0) 08/28/18 Unknown 1+ /HPF (Negative) 08/28/18 Unknown Few /HPF 08/28/18 Unknown Blood Type O POSITIVE 08/29/18 06:00 Antibody Screen Negative 08/29/18 06:00 Active Medications - Current Medications Current Medications: Generic Name Dose Route Start Last Admin Trade Name Freq PRN Reason Stop Dose Admin Acetaminophen 650 mg 08/28/18 16:24 08/29/18 21:45 Tylenol PO 650 mg Q4H PRN Administration Pain MILD(1-3)/Fever >100.5/NOR[place]OD Alprazolam 0.25 mg 08/28/18 16:26 08/30/18 09:16 Xanax PO 0.25 mg BID PRN Administration Anxiety Enoxaparin Sodium 40 mg 08/29/18 10:00 08/30/18 09:16 Lovenox SUB-Q 40 mg DAILY RAJ Administration Potassium Chloride/Dextrose/Sod Cl 20 meq in 1,000 mls @ 75 mls/hr 08/29/18 14:00 08/30/18 03:59 D5w/Ns W/Kcl 20meq IV 75 mls/hr DIRECT RAJ Administration Ondansetron HCl 4 mg 08/28/18 16:24 08/28/18 18:40 Zofran IV 4 mg Q8H PRN Administration Nausea And Vomiting Pantoprazole Sodium 40 mg 08/28/18 18:00 08/30/18 09:17 Protonix IV 40 mg DAILY RAJ Administration Propranolol HCl 60 mg 08/29/18 10:00 08/30/18 09:16 Inderal La PO 60 mg QDAY RAJ Administration Sodium Chloride 10 ml 08/28/18 22:00 08/30/18 09:17 Sodium Chloride Flush Syringe 10 Ml IV 10 ml BID RAJ Administration Sodium Chloride 10 ml 08/28/18 16:24 Sodium Chloride Flush Syringe 10 Ml IV PRN PRN LINE FLUSH Nutrition/Malnutrition Assess - Dietary Evaluation Nutrition/Malnutrition Findings: Nutrition Notes Start: 08/29/18 15:31 Freq: Status: Active Protocol: Document 08/29/18 15:31 RM (Rec: 08/29/18 15:41 RM [email or web address]) Nutrition Notes Need for Assessment generated from: MD Order Initial or Follow up Assessment Current Diagnosis Hypertension Other Pertinent Diagnosis N/V, Abdominal pain, SBO Current Diet NPO Labs/Tests Reviewed Pertinent Medications Reviewed Height 5 ft 2 in Weight 59.421 kg Usual Body Weight 77.27 kg [place] Body Weight (kg) 50.00 BMI 23.9 Weight change and time frame 23% wt loss X 4 - 5 weeks Subjective/Other Information Screened for malnutrition. Pt stated that TACO MAKER she had N/V X 9 days. Stated she could not even keep water down. Stated UBW was 170 lbs 4-5 weeks ago. No temporal or orbital wasting . Burn Absent Trauma Absent Minimum of two criteria Yes Energy Intake (non-severe) <75% Estimated Energy Requirement >7 days Interpretation of Weight Loss (severe) >7.5% in 3 months #1 Nutrition Diagnosis Malnutrition Etiology SBO As Evidenced by Signs and Symptoms pt statement that TACO MAKER she had N/V X 9 days and could not even keep water down, 23% wt loss X 4-5 weeks Is patient on ventilator? No Is Patient Ambulatory and/or Out of Bed Yes REE-([facility]-ambulatory/OOB) [ 1270.698 [id number]] Calculation Used for Recommendations [facility] Additional Notes Protein Needs: 59-71g (1-1.2g/ kg) Fluid Needs: 1 ml/kcal Nutrition Intervention Change Diet Order: Advance diet when medically able or consider TPN if diet not advanced by next visit Add Supplement/Snack (indicate name/kcal Ensure Clear 1 daily once diet /protein ) advanced Provides kCal: 240 Provides Protein (gm) 8 Goal #1 Diet advancement Anticipated Discharge Needs: Unable to determine at this time Follow-Up By: 08/31/18 Additional Comments Follow for diet advancement, PO intakes
--- NOTE | 2018-08-30 16:44 | Progress Note ---
Assessment and Plan - Patient Problems (1) Cecum mass Current Visit: Yes Status: Acute Plan to address problem: Pt stable. Appreciate Cards eval. Spoke with patient and family about benefits and risks of surgery. Had lengthy discussion. Finally, patient and family agreed for surgery. Plan is for open right hemicolectomy due to the obstruction. Conse nt obtained. Family wishes to have surgery done on despite our inital offer to try and schedule it tomorrow. Time=30min Subjective Date of service: 08/30/18 Patient Reports: Positive: no new complaints (just wants some [employer] grape juice), no flatus, no bowel movement Objective Vital Signs - 12hr 08/30/18 08/30/18 08/30/18 07:31 07:36 09:16 Temperature 98.0 F Pulse Rate 58 L 58 L Pulse Rate [ From Monitor] Respiratory 20 Rate Blood Pressure 150/64 150/64 O2 Sat by Pulse 94 96 Oximetry 08/30/18 10:00 Temperature Pulse Rate 56 L Pulse Rate [ 56 L From Monitor] Respiratory Rate Blood Pressure O2 Sat by Pulse 96 Oximetry - General physical appearance no distress, no pain, other (appears very weak) - Respiratory normal expansion, normal respiratory effort - Abdomen soft, tender (mild in RLQ), distended (mild), not guarding, not rigid - Integumentary no rash, no growths, no abnormal pigmentation - Psychiatric oriented to time, oriented to person, oriented to place, speech is normal, memory intact - Labs 08/30/18 04:59 08/30/18 04:59 Diabetes panel 08/30/18 Range/Units 04:59 Sodium 138 (137-145) mmol/L Potassium 3.2 L (3.6-5.0) mmol/L Chloride 105.9 (98-107) mmol/L Carbon Dioxide 21 L (22-30) mmol/L BUN 9 (7-17) mg/dL Creatinine 0.5 L (0.7-1.2) mg/dL Glucose 84 (65-100) mg/dL Calcium 7.9 L (8.4-10.2) mg/dL Calcium panel 08/30/18 Range/Units 04:59 Calcium 7.9 L (8.4-10.2) mg/dL Pituitary panel 08/30/18 Range/Units 04:59 Sodium 138 (137-145) mmol/L Potassium 3.2 L (3.6-5.0) mmol/L Chloride 105.9 (98-107) mmol/L Carbon Dioxide 21 L (22-30) mmol/L BUN 9 (7-17) mg/dL Creatinine 0.5 L (0.7-1.2) mg/dL Glucose 84 (65-100) mg/dL Calcium 7.9 L (8.4-10.2) mg/dL Adrenal panel 08/30/18 Range/Units 04:59 Sodium 138 (137-145) mmol/L Potassium 3.2 L (3.6-5.0) mmol/L Chloride 105.9 (98-107) mmol/L Carbon Dioxide 21 L (22-30) mmol/L BUN 9 (7-17) mg/dL Creatinine 0.5 L (0.7-1.2) mg/dL Glucose 84 (65-100) mg/dL Calcium 7.9 L (8.4-10.2) mg/dL
[2018-08-30] MEDS: KCL 10MEQ/100ML 10 MEQ/100 ML BAG IV SCH ×4 (18:11→21:36)
--- NOTE | 2018-08-31 07:32 | Hem/Onc Progress Note ---
Assessment and Plan 1. Cecal mass. 2. Small-bowel obstruction. 3. Lymphadenopathy in abdomen 4. History of anemia, needing transfusion and she has been followed with Dr. Crews for IV iron. 5. History of renal cyst. 6. History of liver cyst. 7. In the liver, radiology mentions cyst versus neoplasm. PLAN: 1. We will await sx and path 2. CEA ordered. 3. Liver lesions mets versus cyst. 4. h/o Nausea, abdominal pain secondary to tumor issues. I will follow the patient during inpatient stay. We will wait for the pathology. Once the patient is d/c she will follow up with Dr. Crews on an outpatient basis. Low plt - will follow CEA 5 sx planned for pt had a question reg the proof of cancer - after sx - she will follow dr crews - at [place] - Patient Problems (1) Cecum mass Current Visit: Yes Status: Acute Subjective Date of service: 08/31/18 Principal diagnosis: colon mass Interval history: ngt + Objective - Constitutional Vitals: Last Vital Signs Temp 97.9 F 08/31/18 01:50 Pulse 61 08/31/18 01:50 Resp 20 08/31/18 01:50 BP 141/68 08/31/18 01:50 Pulse Ox 95 08/31/18 01:50 Pain Intensity (0-10): denies any pain General appearance: no acute distress Performance status: 3-limited selfcare - EENT Eyes: EOM intact ENT: hearing intact Lymph node exam: negative cervical - Neck Neck: normal ROM - Respiratory Respiratory effort: Positive: normal Respiratory: bilateral: CTA (anteriorly) - Cardiovascular Heart Sounds: Present: S1 & S2 Extremities: normal temperature - Gastrointestinal General gastrointestinal: Present: soft, non-tender Rectal Exam: deferred - Genitourinary Female genitourinary: Present: deferred - Integumentary Integumentary: warm - Musculoskeletal Musculoskeletal: generalized weakness - Neurologic Neurologic: moves all extremities - Labs Lab Results: Laboratory Results - last 24 hr 08/28/18 15:49 Carcinoembryonic Ag 5.2 H Medications & Allergies - Medications Allergies/Adverse Reactions: Allergies acetaminophen [From Darvocet-N 100] Allergy (Verified 08/28/18 11:05) Unknown aspirin Allergy (Verified 08/28/18 11:05) Unknown codeine Allergy (Verified 08/28/18 11:05) Unknown propoxyphene napsylate [From [facility]-N 100] Allergy (Verified 08/28/18 11:05) Unknown Home Medications: Home Medications Medication Instructions Recorded Confirmed Last Taken Type Propranolol HCl 60 mg PO QDAY 09/28/15 08/29/18 08/26/18 22:00 History ALPRAZolam [Xanax TAB] 0.25 mg PO BID PRN #10 tab 10/01/15 08/30/18 Unknown Rx Active Medications: Generic Name Dose Route Start Last Admin Trade Name Freq PRN Reason Stop Dose Admin Acetaminophen 650 mg 08/28/18 16:24 08/29/18 21:45 Tylenol PO 650 mg Q4H PRN Administration Pain MILD(1-3)/Fever >100.5/[place] Alprazolam 0.25 mg 08/28/18 16:26 08/30/18 09:16 Xanax PO 0.25 mg BID PRN Administration Anxiety Potassium Chloride/Dextrose/Sod Cl 20 meq in 1,000 mls @ 75 mls/hr 08/29/18 14:00 08/30/18 18:14 D5w/Ns W/Kcl 20meq IV 75 mls/hr DIRECT RAJ Administration Cefazolin Sodium 2 gm in 20 mls @ 40 mls/hr 09/01/18 06:00 Ancef/Sterile Water 2 Gm/20 Ml IV 09/01/18 23:00 PREOP NR Protocol Ondansetron HCl 4 mg 08/28/18 16:24 08/28/18 18:40 Zofran IV 4 mg Q8H PRN Administration Nausea And Vomiting Pantoprazole Sodium 40 mg 08/28/18 18:00 08/30/18 09:17 Protonix IV 40 mg DAILY RAJ Administration Propranolol HCl 60 mg 08/29/18 10:00 08/30/18 09:16 Inderal La PO 60 mg QDAY RAJ Administration Sodium Chloride 10 ml 08/28/18 22:00 08/30/18 22:10 Sodium Chloride Flush Syringe 10 Ml IV Not Given BID RJA Sodium Chloride 10 ml 08/28/18 16:24 Sodium Chloride Flush Syringe 10 Ml IV PRN PRN LINE FLUSH
[2018-08-31] MEDS: D5W/NS W/KCL 20MEQ 20 MEQ/1,000 ML BAG IV SCH (07:47)
[2018-08-31 08:53] LABS: BUN/Creatinine Ratio 15; Blood Urea Nitrogen 6 mg/dL (7-17); Calcium 7.4 mg/dL (8.4-10.2); Hemolysis Index 8
--- NOTE | 2018-08-31 09:29 | Progress Note ---
Assessment and Plan - Patient Problems (1) Cecum mass Current Visit: Yes Status: Acute Plan to address problem: Pt stable. No new issues. Scheduled for right hemicolectomy surgery tomorrow afternoon. Please call with questions. Time=10min Subjective Date of service: 08/31/18 Patient Reports: Positive: no new complaints (appreciated grape juice.) Objective Vital Signs - 12hr 08/30/18 08/31/18 08/31/18 22:00 01:50 07:28 Temperature 97.9 F 97.4 F L Pulse Rate 63 61 69 Pulse Rate [ 63 From Monitor] Respiratory 20 18 Rate Blood Pressure 141/68 158/76 O2 Sat by Pulse 96 95 94 Oximetry - General physical appearance no distress, no pain, other (looks a little better today) - Respiratory normal expansion, normal respiratory effort - Abdomen soft, tender (in RLQ), distended, not guarding, not rigid - Integumentary no rash, no growths, no abnormal pigmentation - Psychiatric oriented to time, oriented to person, oriented to place, speech is normal, memory intact - Labs 08/30/18 04:59 08/31/18 08:10 Diabetes panel 08/31/18 Range/Units 08:10 Sodium 134 L (137-145) mmol/L Potassium 3.7 (3.6-5.0) mmol/L Chloride 100.7 (98-107) mmol/L Carbon Dioxide 22 (22-30) mmol/L BUN 6 L (7-17) mg/dL Creatinine 0.4 L (0.7-1.2) mg/dL Glucose 99 (65-100) mg/dL Calcium 7.4 L (8.4-10.2) mg/dL Calcium panel 08/31/18 Range/Units 08:10 Calcium 7.4 L (8.4-10.2) mg/dL Pituitary panel 08/31/18 Range/Units 08:10 Sodium 134 L (137-145) mmol/L Potassium 3.7 (3.6-5.0) mmol/L Chloride 100.7 (98-107) mmol/L Carbon Dioxide 22 (22-30) mmol/L BUN 6 L (7-17) mg/dL Creatinine 0.4 L (0.7-1.2) mg/dL Glucose 99 (65-100) mg/dL Calcium 7.4 L (8.4-10.2) mg/dL Adrenal panel 08/31/18 Range/Units 08:10 Sodium 134 L (137-145) mmol/L Potassium 3.7 (3.6-5.0) mmol/L Chloride 100.7 (98-107) mmol/L Carbon Dioxide 22 (22-30) mmol/L BUN 6 L (7-17) mg/dL Creatinine 0.4 L (0.7-1.2) mg/dL Glucose 99 (65-100) mg/dL Calcium 7.4 L (8.4-10.2) mg/dL
--- NOTE | 2018-08-31 09:54 | Progress Note ---
Assessment and Plan Currently stable cardiac status. Pt is currently at moderately high cardiovascular risk in setting of advanced age. No current immediate cardiac contraindications to proceeding with surgery at this time. The patient has been seen in conjunction with Dr. Yaron Al who agrees with the assessment and plan of care. - Patient Problems (1) Acute abdominal pain Current Visit: Yes Status: Acute (2) Nausea and vomiting Current Visit: Yes Status: Acute (3) Cecum mass Current Visit: Yes Status: Acute (4) Small bowel obstruction Current Visit: Yes Status: Acute (5) HTN (hypertension) Current Visit: Yes Status: Chronic (6) LBBB (left bundle branch block) Current Visit: Yes Status: Chronic (7) Hypokalemia Current Visit: Yes Status: Acute Subjective Date of service: 08/31/18 Principal diagnosis: cecal mass Interval history: pt with no current cardiac complaints. Objective Last Vital Signs Temp 97.4 F L 08/31/18 07:28 Pulse 69 08/31/18 07:28 Resp 18 08/31/18 07:28 BP 158/76 08/31/18 07:28 Pulse Ox 94 08/31/18 07:28 - Physical Examination General: No Apparent Distress HEENT: Positive: PERRL, Normocephaly, Mucus Membranes Moist Neck: Positive: neck supple, trachea midline Cardiac: Positive: Reg Rate and Rhythm, S1/S2 Lungs: Positive: Decreased Breath Sounds Neuro: Positive: Grossly Intact Abdomen: Positive: Other (distended) Skin: Negative: Rash Musculoskeletal: No Pain - Labs and Meds Comprehensive Metabolic Panel 08/31/18 Range/Units 08:10 Sodium 134 L (137-145) mmol/L Potassium 3.7 (3.6-5.0) mmol/L Chloride 100.7 (98-107) mmol/L Carbon Dioxide 22 (22-30) mmol/L BUN 6 L (7-17) mg/dL Creatinine 0.4 L (0.7-1.2) mg/dL Glucose 99 (65-100) mg/dL Calcium 7.4 L (8.4-10.2) mg/dL - Imaging and Cardiology EKG: report reviewed, image reviewed Echo: report reviewed (08/2018: EF 50-55%, impaired relaxation, mild AR. 09/2016 showed EF 50%, grade 1 diastolic dysfunction. ) - EKG Sinus rhythms and dysrhythmias: sinus rhythm AV and intraventricular conduction: left bundle branch block
[2018-08-31] MEDS: INDERAL LA PO SCH ×2 (10:19→14:05)
[2018-08-31] MEDS: PROTONIX IV SCH (10:19)
[2018-08-31] MEDS: SODIUM CHLORIDE FLUSH SYRINGE 10 ML IV SCH ×2 (10:19→22:00)
--- NOTE | 2018-08-31 13:18 | Progress Note ---
Assessment and Plan Assessment and plan: 88 YO Female with HTN, Anemia requiring blood transfusion presents to ED for evaluation. Pt states that has experienced nausea and multiple episodes of vomiting and abdominal pain over the past 1 week. Pt states that her pain is 3- 5/10, constant, diffuse, without exacerbating, or alleviating factors. Pt transported to [facility] via private vehicle. 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 complicated by PSBO on CT of abdomen/pelvis. Pt admitted to EDEL unit. Pt seen and evaluated by surgical team in ED. Pt denies fever, chills, chest pain, palpitations, trauma, unintentional weight loss, night sweats, productive cough, skin rash, or recent ill contacts. Prior admission on 09/28/15 reviewed. All listed medication reconciled at time of exam. ECG shows NSR with apparently new LBBB (not present on last ECG in office 09/2016). Echo done 09/2016 showed EF 50%, grade 1 diastolic dysfunction. Lexiscan MPI stress test 09/2015 which was negative, EF 50%. CT A/P IMPRESSION: 1. 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 MRI showed cecal mass and mesenteric lymphadenopathy. 2. Several enlarged pericecal lymph nodes concerning for neoplastic involvement. Stranding and nodularity of the left omentum could represent omental carcinomatosis. 3. Several simple hepatic cysts. Several additional low-attenuation hepatic lesions which are too small to characterize but may represent small cysts or metastatic lesions. MRI showed cysts, additional metastases. 4. Small volume of scattered ascites. 5. Several nonspecific low-attenuation renal lesions which are higher in attenuation than simple cysts and may represent proteinaceous or hemorrhagic cysts versus solid renal neoplasms. Assessment/Plan Cecal Mass: Surgery follow, GI evaluated and signed off. 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 Possible Metastatic lesion to liver and omentum: MRI didn't show hepatic metastasis. Hyponatermia: resolved. Metabolic Acidosis: Anticipate correction with hydration Nausea and Vomiting: Continue NGT, zofran PRN Peritoneal irration/acute abdominal pain secondary to small bowel obstruction: Management as noted above Iron deficency anemia: As noted above patient follows with hematology oncology. Considering coronary consult hematology. Left bundle branch block: Repeat echocardiogram ordered for perioperative risk stratification Hypokalemia: Replace Hypoglycemia: Start D5 with gentle hydration DVT/GI prophy History Interval history: Patient was seen and evaluated after she came back from [facility]. Patient is complaining generalized soreness. No bowel movement. Hospitalist Physical - Physical exam Narrative exam: Not in cardiopulmonary distress. The patient appeared well nourished and normally developed. Vital signs as documented. Head exam is unremarkable. No scleral icterus . Neck is without jugular venous distension, thyromegaly, or carotid bruits. Lungs are clear to auscultation. Cardiac exam reveals regular rate and Rhythm. First and second heart sounds normal. No murmurs, rubs or gallops. Abdominal exam reveals distended abdomen. Extremities are nonedematous and both femoral and pedal pulses are normal. ELEMENTARY ASSISTANT TEACHER: Alert and oriented 3. No focal weakness. - Constitutional Vitals: Temp Pulse Resp BP Pulse Ox 97.4 F L 58 L 18 158/76 94 08/31/18 07:28 08/31/18 10:00 08/31/18 07:28 08/31/18 07:28 08/31/18 10:00 General appearance: Present: mild distress Results - Labs CBC & Chem 7: 08/30/18 04:59 08/31/18 08:10 Labs: Laboratory Last Values WBC 5.7 K/mm3 (4.5-11.0) 08/30/18 04:59 RBC 3.61 M/mm3 (3.65-5.03) L 08/30/18 04:59 Hgb 11.1 gm/dl (10.1-14.3) 08/30/18 04:59 Hct 32.6 % (30.3-42.9) 08/30/18 04:59 MCV 90 fl (79-97) 08/30/18 04:59 MCH 31 pg (28-32) 08/30/18 04:59 MCHC 34 % (30-34) 08/30/18 04:59 RDW 16.3 % (13.2-15.2) H 08/30/18 04:59 Plt Count 139 K/mm3 (140-440) L 08/30/18 04:59 Lymph % (Auto) 9.1 % (13.4-35.0) L 08/28/18 12:41 Arthur % (Auto) Case Specialist 08/29/18 05:55 Eos % (Auto) 0.1 % (0.0-4.3) 08/28/18 12:41 Baso % (Auto) 0.3 % (0.0-1.8) 08/28/18 12:41 Lymph # 0.8 K/mm3 (1.2-5.4) L 08/28/18 12:41 Arthur # 0.9 K/mm3 (0.0-0.8) H 08/28/18 12:41 Eos # 0.0 K/mm3 (0.0-0.4) 08/28/18 12:41 Baso # 0.0 K/mm3 (0.0-0.1) 08/28/18 12:41 Add Manual Diff Complete 08/29/18 05:55 Total Counted 100 08/29/18 05:55 Seg Neutrophils % 80.3 % (40.0-70.0) H 08/28/18 12:41 Seg Neuts % (Manual) 86.0 % (40.0-70.0) H 08/29/18 05:55 0 % 08/29/18 05:55 5.0 % (13.4-35.0) L 08/29/18 05:55 Reactive Lymphs % (Man) 0 % 08/29/18 05:55 9.0 % (0.0-7.3) H 08/29/18 05:55 0 % (0.0-4.3) 08/29/18 05:55 0 % (0.0-1.8) 08/29/18 05:55 0 % 08/29/18 05:55 0 % 08/29/18 05:55 0 % 08/29/18 05:55 0 % 08/29/18 05:55 Nucleated RBC % Not Reportable 08/29/18 05:55 Seg Neutrophils # 6.9 K/mm3 (1.8-7.7) 08/28/18 12:41 Seg Neutrophils # Man 6.0 K/mm3 (1.8-7.7) 08/29/18 05:55 Band Neutrophils # 0.0 K/mm3 08/29/18 05:55 0.4 K/mm3 (1.2-5.4) L 08/29/18 05:55 Abs React Lymphs (Man) 0.0 K/mm3 08/29/18 05:55 0.6 K/mm3 (0.0-0.8) 08/29/18 05:55 0.0 K/mm3 (0.0-0.4) 08/29/18 05:55 0.0 K/mm3 (0.0-0.1) 08/29/18 05:55 0.0 K/mm3 08/29/18 05:55 0.0 K/mm3 08/29/18 05:55 0.0 K/mm3 08/29/18 05:55 Blast Cells # 0.0 K/mm3 08/29/18 05:55 WBC Morphology Not Reportable 08/29/18 05:55 WBC Morphology TNR 08/29/18 05:55 Hypersegmented Neuts Not Reportable 08/29/18 05:55 Hyposegmented Neuts Not Reportable 08/29/18 05:55 Hypogranular Neuts Not Reportable 08/29/18 05:55 Not Reportable 08/29/18 05:55 Not Reportable 08/29/18 05:55 Not Reportable 08/29/18 05:55 Not Reportable 08/29/18 05:55 Not Reportable 08/29/18 05:55 Not Reportable 08/29/18 05:55 Consistent w auto 08/29/18 05:55 Not Reportable 08/29/18 05:55 Plt Clumps, EDTA Not Reportable 08/29/18 05:55 Not Reportable 08/29/18 05:55 Not Reportable 08/29/18 05:55 Not Reportable 08/29/18 05:55 Plt Morphology Comment Not Reportable 08/29/18 05:55 RBC Morphology Not Reportable 08/29/18 05:55 Dimorphic RBCs Not Reportable 08/29/18 05:55 Not Reportable 08/29/18 05:55 Not Reportable 08/29/18 05:55 1+ 08/29/18 05:55 1+ 08/29/18 05:55 Not Reportable 08/29/18 05:55 Not Reportable 08/29/18 05:55 Not Reportable 08/29/18 05:55 Not Reportable 08/29/18 05:55 Not Reportable 08/29/18 05:55 Not Reportable 08/29/18 05:55 Not Reportable 08/29/18 05:55 Few 08/29/18 05:55 Not Reportable 08/29/18 05:55 Not Reportable 08/29/18 05:55 Not Reportable 08/29/18 05:55 Not Reportable 08/29/18 05:55 Not Reportable 08/29/18 05:55 Not Reportable 08/29/18 05:55 Few 08/29/18 05:55 Acanthocytes (Spur) Not Reportable 08/29/18 05:55 Rouleaux Not Reportable 08/29/18 05:55 Not Reportable 08/29/18 05:55 Not Reportable 08/29/18 05:55 Not Reportable 08/29/18 05:55 Not Reportable 08/29/18 05:55 Hem Pathologist Commnt No 08/29/18 05:55 Sodium 134 mmol/L (137-145) L 08/31/18 08:10 Potassium 3.7 mmol/L (3.6-5.0) 08/31/18 08:10 Chloride 100.7 mmol/L (98-107) 08/31/18 08:10 Carbon Dioxide 22 mmol/L (22-30) 08/31/18 08:10 15 mmol/L 08/31/18 08:10 BUN 6 mg/dL (7-17) L 08/31/18 08:10 0.4 mg/dL (0.7-1.2) L 08/31/18 08:10 Estimated GFR > 60 ml/min 08/31/18 08:10 15 % 08/31/18 08:10 Glucose 99 mg/dL (65-100) 08/31/18 08:10 Calcium 7.4 mg/dL (8.4-10.2) L 08/31/18 08:10 Magnesium 1.90 mg/dL (1.7-2.3) 08/30/18 04:59 0.30 mg/dL (0.1-1.2) 08/29/18 05:55 AST 9 units/L (5-40) 08/29/18 05:55 ALT 6 units/L (7-56) L 08/29/18 05:55 67 units/L (35-129) 08/29/18 05:55 40 units/L (30-135) 08/28/18 12:41 CK-MB (CK-2) 2.3 ng/mL (0.0-4.0) 08/28/18 12:41 CK-MB (CK-2) Rel Index 5.7 (0-4) H 08/28/18 12:41 < 0.010 ng/mL (0.00-0.029) 08/28/18 12:41 4.9 g/dL (6.3-8.2) L 08/29/18 05:55 2.8 g/dL (3.9-5) L 08/29/18 05:55 1.3 % 08/29/18 05:55 15 units/L (13-60) 08/28/18 12:41 Carcinoembryonic Ag 5.2 ng/mL (0.0-2.4) H 08/28/18 15:49 Yellow (Yellow) 08/28/18 Unknown Clear (Clear) 08/28/18 Unknown 5.0 (5.0-7.0) 08/28/18 Unknown Ur Specific [place] 1.049 (1.003-1.030) H 08/28/18 Unknown <15 mg/dl mg/dL (Negative) 08/28/18 Unknown Neg mg/dL (Negative) 08/28/18 Unknown 20 mg/dL (Negative) 08/28/18 Unknown Neg (Negative) 08/28/18 Unknown Pos (Negative) 08/28/18 Unknown Neg (Negative) 08/28/18 Unknown < 2.0 mg/dL (<2.0) 08/28/18 Unknown Ur Leukocyte Esterase Neg (Negative) 08/28/18 Unknown 1.0 /HPF (0.0-6.0) 08/28/18 Unknown 3.0 /HPF (0.0-6.0) 08/28/18 Unknown U Epithel Cells (Auto) 1.0 /HPF (0-13.0) 08/28/18 Unknown 1+ /HPF (Negative) 08/28/18 Unknown Few /HPF 08/28/18 Unknown Blood Type O POSITIVE 08/29/18 06:00 Antibody Screen Negative 08/29/18 06:00 Active Medications - Current Medications Current Medications: Generic Name Dose Route Start Last Admin Trade Name Freq PRN Reason Stop Dose Admin Acetaminophen 650 mg 08/28/18 16:24 08/29/18 21:45 Tylenol PO 650 mg Q4H PRN Administration Pain MILD(1-3)/Fever >100.5/NOR[place]OD Alprazolam 0.25 mg 08/28/18 16:26 08/30/18 09:16 Xanax PO 0.25 mg BID PRN Administration Anxiety Potassium Chloride/Dextrose/Sod Cl 20 meq in 1,000 mls @ 75 mls/hr 08/29/18 14:00 08/31/18 07:47 D5w/Ns W/Kcl 20meq IV 75 mls/hr DIRECT RAJ Administration Cefazolin Sodium 2 gm in 20 mls @ 40 mls/hr 09/01/18 06:00 Ancef/Sterile Water 2 Gm/20 Ml IV 09/01/18 23:00 PREOP NR Protocol Ondansetron HCl 4 mg 08/28/18 16:24 08/28/18 18:40 Zofran IV 4 mg Q8H PRN Administration Nausea And Vomiting Pantoprazole Sodium 40 mg 08/28/18 18:00 08/31/18 10:19 Protonix IV 40 mg DAILY RAJ Administration Propranolol HCl 60 mg 08/29/18 10:00 08/31/18 10:19 Inderal La PO Not Given QDAY RAJ Sodium Chloride 10 ml 08/28/18 22:00 08/31/18 10:19 Sodium Chloride Flush Syringe 10 Ml IV 10 ml BID RAJ Administration Sodium Chloride 10 ml 08/28/18 16:24 Sodium Chloride Flush Syringe 10 Ml IV PRN PRN LINE FLUSH Nutrition/Malnutrition Assess - Dietary Evaluation Nutrition/Malnutrition Findings: Nutrition Notes Start: 08/29/18 15:31 Freq: Status: Active Protocol: Document 08/29/18 15:31 RM (Rec: 08/29/18 15:41 RM [id number]) Nutrition Notes Need for Assessment generated from: MD Order Initial or Follow up Assessment Current Diagnosis Hypertension Other Pertinent Diagnosis N/V, Abdominal pain, SBO Current Diet NPO Labs/Tests Reviewed Pertinent Medications Reviewed Height 5 ft 2 in Weight 59.421 kg Usual Body Weight 77.27 kg [place] Body Weight (kg) 50.00 BMI 23.9 Weight change and time frame 23% wt loss X 4 - 5 weeks Subjective/Other Information Screened for malnutrition. Pt stated that CLINICAL PHYSICIAN ASSISTANT she had N/V X 9 days. Stated she could not even keep water down. Stated UBW was 170 lbs 4-5 weeks ago. No temporal or orbital wasting . Burn Absent Trauma Absent Minimum of two criteria Yes Energy Intake (non-severe) <75% Estimated Energy Requirement >7 days Interpretation of Weight Loss (severe) >7.5% in 3 months #1 Nutrition Diagnosis Malnutrition Etiology SBO As Evidenced by Signs and Symptoms pt statement that CLINICAL PHYSICIAN ASSISTANT she had N/V X 9 days and could not even keep water down, 23% wt loss X 4-5 weeks Is patient on ventilator? No Is Patient Ambulatory and/or Out of Bed Yes REE-([facility]-ambulatory/OOB) [ [id number] [id number]] Calculation Used for Recommendations [facility] Additional Notes Protein Needs: 59-71g (1-1.2g/ kg) Fluid Needs: 1 ml/kcal Nutrition Intervention Change Diet Order: Advance diet when medically able or consider TPN if diet not advanced by next visit Add Supplement/Snack (indicate name/kcal Ensure Clear 1 daily once diet /protein ) advanced Provides kCal: 240 Provides Protein (gm) 8 Goal #1 Diet advancement Anticipated Discharge Needs: Unable to determine at this time Follow-Up By: 08/31/18 Additional Comments Follow for diet advancement, PO intakes
--- NOTE | 2018-08-31 16:23 | XRay Report ---
PROCEDURE: XR CHEST 1V AP TECHNIQUE: Chest radiograph single view. HISTORY: R arm PICC placement COMPARISONS: None . FINDINGS: Heart: Normal. Mediastinum/Vessels: Aorta is mildly unfolded, likely age-related. Lungs/Pleural space: Normal. No pneumothorax Bony thorax: No acute osseous abnormality. Life support devices: Right subclavian PICC line terminates in the distal superior vena cava. Nasogas tric tube and side port terminate in the stomach. IMPRESSION: No acute cardiopulmonary abnormality. Satisfactory right PICC line placement This document is electronically signed by Chela Rivas MD., August 31 2018 04:22:05 PM ET
[2018-08-31] MEDS ORDERED: TPN ADULT 1,800 ML IV SCH (20:00)
[2018-09-01 05:56] LABS: Hematocrit 36.8 % (30.3-42.9); Hemoglobin 12.5 gm/dl (10.1-14.3); Mean Corpuscular HGB Conc 34 % (30-34); Mean Corpuscular Volume 90 fl (79-97); Platelet Count 125 K/mm3 (140-440); Red Blood Count 4.09 M/mm3 (3.65-5.03); Red Cell Distribution Width 16.2 % (13.2-15.2)
[2018-09-01] MEDS ORDERED: ANCEF/STERILE WATER 2 GM/20 ML 2 GM/20 ML SYRINGE IV NR (06:00)
[2018-09-01 06:32] LABS: BUN/Creatinine Ratio 18; Blood Urea Nitrogen 9 mg/dL (7-17); Calcium 7.8 mg/dL (8.4-10.2); Hemolysis Index 9; Iron 31 ug/dL (37-170); Total Iron Binding Capacity 115 mcg/dL (250-450)
[2018-09-01 07:14] LABS: Anisocytosis 1+; Band Neutrophils # (Manual) 0.1 K/mm3; Platelet Estimate Consistent w Auto; Total Cells Counted 100
--- NOTE | 2018-09-01 07:25 | Hem/Onc Progress Note ---
Assessment and Plan 1. Cecal mass. 2. Small-bowel obstruction. 3. Lymphadenopathy in abdomen 4. History of anemia, needing transfusion and she has been followed with Dr. Crews for IV iron. 5. History of renal cyst. 6. History of liver cyst. 7. In the liver, radiology mentions cyst versus neoplasm. PLAN: 1. We will await sx and path 2. CEA ordered. 3. Liver lesions mets versus cyst. 4. h/o Nausea, abdominal pain secondary to tumor issues. I will follow the patient during inpatient stay. We will wait for the pathology. Once the patient is d/c she will follow up with Dr. Crews on an outpatient basis. 09/01 h/o Low plt - will follow CEA 5 sx today pt had a question reg the proof of cancer - after sx - she will follow dr crews - [place] - Patient Problems (1) Cecum mass Current Visit: Yes Status: Acute Subjective Date of service: 09/01/18 Objective - Constitutional Vitals: Last Vital Signs Temp 97.3 F L 09/01/18 02:19 Pulse 67 09/01/18 02:19 Resp 18 09/01/18 02:19 BP 180/76 09/01/18 02:19 Pulse Ox 96 09/01/18 02:19 Pain Intensity (0-10): denies any pain General appearance: no acute distress Performance status: 3-limited selfcare - EENT Eyes: EOM intact ENT: hearing intact Lymph node exam: negative cervical - Neck Neck: normal ROM - Respiratory Respiratory effort: Positive: normal Respiratory: bilateral: CTA - Cardiovascular Heart Sounds: Present: S1 & S2 Extremities: normal temperature - Gastrointestinal General gastrointestinal: Present: soft, non-tender Rectal Exam: deferred - Genitourinary Female genitourinary: Present: deferred - Integumentary Integumentary: warm - Musculoskeletal Musculoskeletal: strength equal bilaterally - Neurologic Neurologic: moves all extremities - Labs Lab Results: Laboratory Results - last 24 hr 08/31/18 09/01/18 09/01/18 08:10 00:40 05:35 WBC 6.3 RBC 4.09 Hgb 12.5 Hct 36.8 MCV 90 MCH 31 MCHC 34 RDW 16.2 H Plt Count 125 L Barry % (Auto) Clinical Social Work Therapist Add Manual Diff Complete Total Counted 100 Seg Neuts % (Manual) 77.0 H Band Neutrophils % 1.0 Lymphocytes % (Manual) 7.0 L Reactive Lymphs % (Man) 0 Monocytes % (Manual) 13.0 H Eosinophils % (Manual) 1.0 Basophils % (Manual) 1.0 Metamyelocytes % 0 Myelocytes % 0 Promyelocytes % 0 Blast Cells % 0 Nucleated RBC % Not Reportable Seg Neutrophils # Man 4.9 Band Neutrophils # 0.1 Lymphocytes # (Manual) 0.4 L Abs React Lymphs (Man) 0.0 Monocytes # (Manual) 0.8 Eosinophils # (Manual) 0.1 Basophils # (Manual) 0.1 Metamyelocytes # 0.0 Myelocytes # 0.0 Promyelocytes # 0.0 Blast Cells # 0.0 WBC Morphology Not Reportable Hypersegmented Neuts Not Reportable Hyposegmented Neuts Not Reportable Hypogranular Neuts Not Reportable Smudge Cells Not Reportable Toxic Granulation Not Reportable Toxic Vacuolation Not Reportable Dohle Bodies Not Reportable Pelger-Huet Anomaly Not Reportable Dalton Rods Not Reportable Platelet Estimate Consistent w auto Clumped Platelets Not Reportable Plt Clumps, EDTA Not Reportable Large Platelets Not Reportable Giant Platelets Not Reportable Platelet Satelliting Not Reportable Plt Morphology Comment Not Reportable RBC Morphology Not Reportable Dimorphic RBCs Not Reportable Polychromasia Not Reportable Hypochromasia Not Reportable Poikilocytosis Not Reportable Anisocytosis 1+ Microcytosis Not Reportable Macrocytosis Not Reportable Spherocytes Not Reportable Pappenheimer Bodies Not Reportable Sickle Cells Not Reportable Target Cells Not Reportable Tear Drop Cells Not Reportable Ovalocytes Not Reportable Helmet Cells Not Reportable Tobin-Severance Bodies Not Reportable [place] Rings Not Reportable [place] Cells Not Reportable Bite Cells Not Reportable Crenated Cell Not Reportable Elliptocytes Not Reportable Acanthocytes (Spur) Not Reportable Rouleaux Not Reportable Hemoglobin C Crystals Not Reportable Schistocytes Not Reportable Malaria parasites Not Reportable Braulio Bodies Not Reportable Hem Pathologist Commnt No Sodium 134 L Potassium 3.7 Chloride 100.7 Carbon Dioxide 22 Anion Gap 15 BUN 6 L Creatinine 0.4 L Estimated GFR > 60 BUN/Creatinine Ratio 15 Glucose 99 POC Glucose 117 H Calcium 7.4 L Phosphorus Magnesium Iron TIBC Ferritin Folate 09/01/18 09/01/1819 05:35 05:35 05:35 WBC RBC Hgb Hct MCV MCH MCHC RDW Plt Count Barry % (Auto) Add Manual Diff Total Counted Seg Neuts % (Manual) Band Neutrophils % Lymphocytes % (Manual) Reactive Lymphs % (Man) Monocytes % (Manual) Eosinophils % (Manual) Basophils % (Manual) Metamyelocytes % Myelocytes % Promyelocytes % Blast Cells % Nucleated RBC % Seg Neutrophils # Man Band Neutrophils # Lymphocytes # (Manual) Abs React Lymphs (Man) Monocytes # (Manual) Eosinophils # (Manual) Basophils # (Manual) Metamyelocytes # Myelocytes # Promyelocytes # Blast Cells # WBC Morphology Hypersegmented Neuts Hyposegmented Neuts Hypogranular Neuts Smudge Cells Toxic Granulation Toxic Vacuolation Dohle Bodies Pelger-Huet Anomaly Dalton Rods Platelet Estimate Clumped Platelets Plt Clumps, EDTA Large Platelets Giant Platelets Platelet Satelliting Plt Morphology Comment RBC Morphology Dimorphic RBCs Polychromasia Hypochromasia Poikilocytosis Anisocytosis Microcytosis Macrocytosis Spherocytes Pappenheimer Bodies Sickle Cells Target Cells Tear Drop Cells Ovalocytes Helmet Cells Tobin-Severance Bodies [place] Rings [place] Cells Bite Cells Crenated Cell Elliptocytes Acanthocytes (Spur) Rouleaux Hemoglobin C Crystals Schistocytes Malaria parasites Braulio Bodies Hem Pathologist Commnt Sodium 136 L Potassium 3.7 Chloride 99.1 Carbon Dioxide 26 Anion Gap 15 BUN 9 Creatinine 0.5 L Estimated GFR > 60 BUN/Creatinine Ratio 18 Glucose 109 H POC Glucose Calcium 7.8 L Phosphorus 1.90 L Magnesium 1.70 Iron 31 L TIBC 115 L Ferritin 401.1 H Folate 5.75 L Medications & Allergies - Medications Allergies/Adverse Reactions: Allergies acetaminophen [From Darvocet-N 100] Allergy (Verified 08/28/18 11:05) Unknown aspirin Allergy (Verified 08/28/18 11:05) Unknown codeine Allergy (Verified 08/28/18 11:05) Unknown propoxyphene napsylate [From Darvocet-N 100] Allergy (Verified 08/28/18 11:05) Unknown Home Medications: Home Medications Medication Instructions Recorded Confirmed Last Taken Type Propranolol HCl 60 mg PO QDAY 09/28/15 08/29/18 08/26/18 22:00 History ALPRAZolam [Xanax TAB] 0.25 mg PO BID PRN #10 tab 10/01/15 08/30/18 Unknown Rx Active Medications: Generic Name Dose Route Start Last Admin Trade Name Antony PRN Reason Stop Dose Admin Acetaminophen 650 mg 08/28/18 16:24 08/29/18 21:45 Tylenol PO 650 mg Q4H PRN Administration Pain MILD(1-3)/Fever >100.5/[place] Alprazolam 0.25 mg 08/28/18 16:26 08/30/18 09:16 Xanax PO 0.25 mg BID PRN Administration Anxiety Cefazolin Sodium 2 gm in 20 mls @ 40 mls/hr 09/01/18 06:00 Ancef/Sterile Water 2 Gm/20 Ml IV 09/01/18 23:00 PREOP NR Protocol Amino Acids/Electrolytes/Dextrose 1,800 mls @ 75 mls/hr 08/31/18 20:00 08/31/18 19:58 Tpn Adult IV 09/01/18 19:59 75 mls/hr DAILY@2000 RAJ Administration Protocol Folic Acid 10 mg/ Sodium 52 mls @ 208 mls/hr 09/01/18 07:11 Chloride IV 09/01/18 07:12 ONCE ONE Ondansetron HCl 4 mg 08/28/18 16:24 08/28/18 18:40 Zofran IV 4 mg Q8H PRN Administration Nausea And Vomiting Pantoprazole Sodium 40 mg 08/28/18 18:00 08/31/18 10:19 Protonix IV 40 mg DAILY RAJ Administration Propranolol HCl 60 mg 08/29/18 10:00 08/31/18 14:05 Inderal La PO 60 mg QDAY RAJ Administration Sodium Chloride 10 ml 08/28/18 22:00 08/31/18 22:00 Sodium Chloride Flush Syringe 10 Ml IV 10 ml BID RAJ Administration Sodium Chloride 10 ml 08/28/18 16:24 Sodium Chloride Flush Syringe 10 Ml IV PRN PRN LINE FLUSH
[2018-09-01] MEDS: APRESOLINE IV PRN ×2 (09:13→17:55)
[2018-09-01] MEDS: INDERAL LA PO SCH ×2 (09:14→09:28)
[2018-09-01] MEDS: PROTONIX IV SCH (09:14)
[2018-09-01] MEDS: SODIUM CHLORIDE FLUSH SYRINGE 10 ML IV SCH ×2 (09:14→22:15)
[2018-09-01] MEDS ORDERED: NACL 0.9% IV ONE (12:30)
[2018-09-01] MEDS ORDERED: FOLVITE IV ONE (12:30)
[2018-09-01] MEDS ORDERED: LACTATED RINGERS 1,000 ML IV SCH (13:07)
--- NOTE | 2018-09-01 13:21 | Anesthesia Day of Surgery ---
Anesthesia Day of Surgery - Day of Surgery Patient Examined: Yes Patient H&P Reviewed: Yes Patient is NPO: Yes Beta Blockers: Yes
--- NOTE | 2018-09-01 13:21 | Anesthesia Consultation ---
Anesthesia Consult and Med Hx Date of service: 09/01/18 - Airway Anesthetic Teeth Evaluation: Poor ROM Head & Neck: Inadequate Mental/Hyoid Distance: Adequate Mallampati Class: Class III Intubation Access Assessment: Possibly Difficult - Pulmonary Exam CTA: Yes - Cardiac Exam Cardiac Exam: RRR - Pre-Operative Health Status ASA Pre-Surgery Classification: ASA3 Proposed Anesthetic Plan: General - Pulmonary Hx Smoking: No Hx Respiratory Symptoms: No - Cardiovascular System Hx Hypertension: Yes Hx Heart Attack/AMI: No Hx Percutaneous Transluminal Coronary Angioplasty (PTCA): No Hx Cardia Arrhythmia: Yes (LBBB) Hx Pacemaker: No Hx Internal Defibrillator: No - Central Nervous System CVA: No - Gastrointestinal Hx Gastroesophageal Reflux Disease: No - Endocrine Hx Renal Disease: No Hx Liver Disease: No Hx Insulin Dependent Diabetes: No Hx Non-Insulin Dependent Diabetes: No Hx Thyroid Disease: No - Hematic Hx Anemia: Yes - Other Systems Hx Cancer: Yes - Additional Comments Anesthesia Medical History Comments: Evaluiated by cardiology this admission. No interventions. Active type and screen.
[2018-09-01] MEDS ORDERED: LEVOPHED IV ONE (13:26)
[2018-09-01] MEDS ORDERED: Vasostrict ONE (13:27)
[2018-09-01] MEDS ORDERED: NACL 0.9% 250ML 0 ML ONE (13:27)
[2018-09-01] MEDS ORDERED: SUBLIMAZE IV PRN (14:14)
[2018-09-01] MEDS ORDERED: NACL 0.9% IR ONE ×2 (14:38)
--- NOTE | 2018-09-01 14:49 | Progress Note ---
Assessment and Plan Assessment and plan: 88 YO Female with HTN, Anemia requiring blood transfusion presents to ED for evaluation. Pt states that has experienced nausea and multiple episodes of vomiting and abdominal pain over the past 1 week. Pt states that her pain is 3- 5/10, constant, diffuse, without exacerbating, or alleviating factors. Pt transported to [facility] via private vehicle. 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 complicated by PSBO on CT of abdomen/pelvis. Pt admitted to EDEL unit. Pt seen and evaluated by surgical team in ED. Pt denies fever, chills, chest pain, palpitations, trauma, unintentional weight loss, night sweats, productive cough, skin rash, or recent ill contacts. Prior admission on 09/28/15 reviewed. All listed medication reconciled at time of exam. ECG shows NSR with apparently new LBBB (not present on last ECG in office 09/2016). Echo done 09/2016 showed EF 50%, grade 1 diastolic dysfunction. Lexiscan MPI stress test 09/2015 which was negative, EF 50%. CT A/P IMPRESSION: 1. 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 MRI showed cecal mass and mesenteric lymphadenopathy. 2. Several enlarged pericecal lymph nodes concerning for neoplastic involvement. Stranding and nodularity of the left omentum could represent omental carcinomatosis. 3. Several simple hepatic cysts. Several additional low-attenuation hepatic lesions which are too small to characterize but may represent small cysts or metastatic lesions. MRI showed cysts, no liver metastases. 4. Small volume of scattered ascites. 5. Several nonspecific low-attenuation renal lesions which are higher in attenuation than simple cysts and may represent proteinaceous or hemorrhagic cysts versus solid renal neoplasms. Total oral intake; patient is on TPN. Assessment/Plan Cecal Mass: Surgery follow, GI evaluated and signed off. 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 Possible Metastatic lesion to liver and omentum: MRI didn't show hepatic metastasis. Hyponatermia: resolved. Metabolic Acidosis: Anticipate correction with hydration Nausea and Vomiting: Continue NGT, zofran PRN Patient is on TPN. Peritoneal irration/acute abdominal pain secondary to small bowel obstruction: Management as noted above Iron deficency anemia: As noted above patient follows with hematology oncology. Considering coronary consult hematology. Left bundle branch block: Echocardiogram; EF 50-55%, diastolic dysfunction. Hypokalemia: Replace Hypoglycemia: Start D5 with gentle hydration DVT/GI prophy History Interval history: Patient was seen and evaluated this morning, patient didn't have any complaints. She was alert and oriented. Hospitalist Physical - Physical exam Narrative exam: Not in cardiopulmonary distress. The patient appeared well nourished and normally developed. Vital signs as documented. Head exam is unremarkable. No scleral icterus . Neck is without jugular venous distension, thyromegaly, or carotid bruits. Lungs are clear to auscultation. Cardiac exam reveals regular rate and Rhythm. Abdominal exam reveals distended abdomen. Extremities are nonedematous and both femoral and pedal pulses are normal. COMMISSION SPECIALIST: Alert and oriented 3. No focal weakness. - Constitutional Vitals: Temp Pulse Resp BP Pulse Ox 99.5 F 71 18 147/72 98 09/01/18 12:35 09/01/18 12:35 09/01/18 12:35 09/01/18 12:35 09/01/18 12:35 General appearance: Present: mild distress Results - Labs CBC & Chem 7: 09/01/18 05:35 09/01/18 05:35 Labs: Laboratory Last Values WBC 6.3 K/mm3 (4.5-11.0) 09/01/18 05:35 RBC 4.09 M/mm3 (3.65-5.03) 09/01/18 05:35 Hgb 12.5 gm/dl (10.1-14.3) 09/01/18 05:35 Hct 36.8 % (30.3-42.9) 09/01/18 05:35 MCV 90 fl (79-97) 09/01/18 05:35 MCH 31 pg (28-32) 09/01/18 05:35 MCHC 34 % (30-34) 09/01/18 05:35 RDW 16.2 % (13.2-15.2) H 09/01/18 05:35 Plt Count 125 K/mm3 (140-440) L 09/01/18 05:35 Lymph % (Auto) 9.1 % (13.4-35.0) L 08/28/18 12:41 Cassia % (Auto) Case Managers 09/01/18 05:35 Eos % (Auto) 0.1 % (0.0-4.3) 08/28/18 12:41 Baso % (Auto) 0.3 % (0.0-1.8) 08/28/18 12:41 Lymph # 0.8 K/mm3 (1.2-5.4) L 08/28/18 12:41 Cassia # 0.9 K/mm3 (0.0-0.8) H 08/28/18 12:41 Eos # 0.0 K/mm3 (0.0-0.4) 08/28/18 12:41 Baso # 0.0 K/mm3 (0.0-0.1) 08/28/18 12:41 Add Manual Diff Complete 09/01/18 05:35 Total Counted 100 09/01/18 05:35 Seg Neutrophils % 80.3 % (40.0-70.0) H 08/28/18 12:41 Seg Neuts % (Manual) 77.0 % (40.0-70.0) H 09/01/18 05:35 1.0 % 09/01/18 05:35 7.0 % (13.4-35.0) L 09/01/18 05:35 Reactive Lymphs % (Man) 0 % 09/01/18 05:35 13.0 % (0.0-7.3) H 09/01/18 05:35 1.0 % (0.0-4.3) 09/01/18 05:35 1.0 % (0.0-1.8) 09/01/18 05:35 0 % 09/01/18 05:35 0 % 09/01/18 05:35 0 % 09/01/18 05:35 0 % 09/01/18 05:35 Nucleated RBC % Not Reportable 09/01/18 05:35 Seg Neutrophils # 6.9 K/mm3 (1.8-7.7) 08/28/18 12:41 Seg Neutrophils # Man 4.9 K/mm3 (1.8-7.7) 09/01/18 05:35 Band Neutrophils # 0.1 K/mm3 09/01/18 05:35 0.4 K/mm3 (1.2-5.4) L 09/01/18 05:35 Abs React Lymphs (Man) 0.0 K/mm3 09/01/18 05:35 0.8 K/mm3 (0.0-0.8) 09/01/18 05:35 0.1 K/mm3 (0.0-0.4) 09/01/18 05:35 0.1 K/mm3 (0.0-0.1) 09/01/18 05:35 0.0 K/mm3 09/01/18 05:35 0.0 K/mm3 09/01/18 05:35 0.0 K/mm3 09/01/18 05:35 Blast Cells # 0.0 K/mm3 09/01/18 05:35 WBC Morphology Not Reportable 09/01/18 05:35 Hypersegmented Neuts Not Reportable 09/01/18 05:35 Hyposegmented Neuts Not Reportable 09/01/18 05:35 Hypogranular Neuts Not Reportable 09/01/18 05:35 Not Reportable 09/01/18 05:35 Not Reportable 09/01/18 05:35 Not Reportable 09/01/18 05:35 Not Reportable 09/01/18 05:35 Not Reportable 09/01/18 05:35 Not Reportable 09/01/18 05:35 Consistent w auto 09/01/18 05:35 Not Reportable 09/01/18 05:35 Plt Clumps, EDTA Not Reportable 09/01/18 05:35 Not Reportable 09/01/18 05:35 Not Reportable 09/01/18 05:35 Not Reportable 09/01/18 05:35 Plt Morphology Comment Not Reportable 09/01/18 05:35 RBC Morphology Not Reportable 09/01/18 05:35 Dimorphic RBCs Not Reportable 09/01/18 05:35 Not Reportable 09/01/18 05:35 Not Reportable 09/01/18 05:35 Not Reportable 09/01/18 05:35 1+ 09/01/18 05:35 Not Reportable 09/01/18 05:35 Not Reportable 09/01/18 05:35 Not Reportable 09/01/18 05:35 Not Reportable 09/01/18 05:35 Not Reportable 09/01/18 05:35 Not Reportable 09/01/18 05:35 Not Reportable 09/01/18 05:35 Not Reportable 09/01/18 05:35 Not Reportable 09/01/18 05:35 Not Reportable 09/01/18 05:35 Not Reportable 09/01/18 05:35 Not Reportable 09/01/18 05:35 Not Reportable 09/01/18 05:35 Not Reportable 09/01/18 05:35 Not Reportable 09/01/18 05:35 Acanthocytes (Spur) Not Reportable 09/01/18 05:35 Rouleaux Not Reportable 09/01/18 05:35 Not Reportable 09/01/18 05:35 Not Reportable 09/01/18 05:35 Not Reportable 09/01/18 05:35 Not Reportable 09/01/18 05:35 Hem Pathologist Commnt No 09/01/18 05:35 Sodium 136 mmol/L (137-145) L 09/01/18 05:35 Potassium 3.7 mmol/L (3.6-5.0) 09/01/18 05:35 Chloride 99.1 mmol/L (98-107) 09/01/18 05:35 Carbon Dioxide 26 mmol/L (22-30) 09/01/18 05:35 15 mmol/L 09/01/18 05:35 BUN 9 mg/dL (7-17) 09/01/18 05:35 0.5 mg/dL (0.7-1.2) L 09/01/18 05:35 Estimated GFR > 60 ml/min 09/01/18 05:35 18 % 09/01/18 05:35 Glucose 109 mg/dL (65-100) H 09/01/18 05:35 POC Glucose 113 (70-105) H 09/01/18 12:11 Calcium 7.8 mg/dL (8.4-10.2) L 09/01/18 05:35 Phosphorus 1.90 mg/dL (2.5-4.5) L 09/01/18 05:35 Magnesium 1.70 mg/dL (1.7-2.3) 09/01/18 05:35 Iron 31 ug/dL (37-170) L 09/01/18 05:35 TIBC 115 mcg/dL (250-450) L 09/01/18 05:35 401.1 ng/mL (13.0-400.0) H 09/01/18 05:35 0.30 mg/dL (0.1-1.2) 08/29/18 05:55 AST 9 units/L (5-40) 08/29/18 05:55 ALT 6 units/L (7-56) L 08/29/18 05:55 67 units/L (35-129) 08/29/18 05:55 40 units/L (30-135) 08/28/18 12:41 CK-MB (CK-2) 2.3 ng/mL (0.0-4.0) 08/28/18 12:41 CK-MB (CK-2) Rel Index 5.7 (0-4) H 08/28/18 12:41 < 0.010 ng/mL (0.00-0.029) 08/28/18 12:41 4.9 g/dL (6.3-8.2) L 08/29/18 05:55 2.8 g/dL (3.9-5) L 08/29/18 05:55 1.3 % 08/29/18 05:55 15 units/L (13-60) 08/28/18 12:41 Carcinoembryonic Ag 5.2 ng/mL (0.0-2.4) H 08/28/18 15:49 Vitamin B12 > 2000 pg/mL (211-911) H 09/01/18 05:35 5.75 ng/mL (7.3-26.0) L 09/01/18 05:35 Yellow (Yellow) 08/28/18 Unknown Clear (Clear) 08/28/18 Unknown 5.0 (5.0-7.0) 08/28/18 Unknown Ur Specific [place] 1.049 (1.003-1.030) H 08/28/18 Unknown <15 mg/dl mg/dL (Negative) 08/28/18 Unknown Neg mg/dL (Negative) 08/28/18 Unknown 20 mg/dL (Negative) 08/28/18 Unknown Neg (Negative) 08/28/18 Unknown Pos (Negative) 08/28/18 Unknown Neg (Negative) 08/28/18 Unknown < 2.0 mg/dL (<2.0) 08/28/18 Unknown Ur Leukocyte Esterase Neg (Negative) 08/28/18 Unknown 1.0 /HPF (0.0-6.0) 08/28/18 Unknown 3.0 /HPF (0.0-6.0) 08/28/18 Unknown U Epithel Cells (Auto) 1.0 /HPF (0-13.0) 08/28/18 Unknown 1+ /HPF (Negative) 08/28/18 Unknown Few /HPF 08/28/18 Unknown Blood Type O POSITIVE 09/01/18 05:35 Antibody Screen Negative 09/01/18 05:35 Active Medications - Current Medications Current Medications: Generic Name Dose Route Start Last Admin Trade Name Freq PRN Reason Stop Dose Admin Acetaminophen 650 mg 08/28/18 16:24 08/29/18 21:45 Tylenol PO 650 mg Q4H PRN Administration Pain MILD(1-3)/Fever >100.5/[place] Alprazolam 0.25 mg 08/28/18 16:26 08/30/18 09:16 Xanax PO 0.25 mg BID PRN Administration Anxiety Fentanyl 50 mcg 09/01/18 14:14 Sublimaze IV Q5MIN PRN Pain , Severe (7-10) Hydralazine HCl 10 mg 09/01/18 09:00 09/01/18 09:13 Apresoline IV 10 mg Q4H PRN Administration Hypertension Cefazolin Sodium 2 gm in 20 mls @ 40 mls/hr 09/01/18 06:00 Ancef/Sterile Water 2 Gm/20 Ml IV 09/01/18 23:00 PREOP NR Protocol Amino Acids/Electrolytes/Dextrose 1,800 mls @ 75 mls/hr 08/31/18 20:00 08/31/18 19:58 Tpn Adult IV 09/01/18 19:59 75 mls/hr DAILY@1999 RAJ Administration Protocol Amino Acids/Electrolytes/Dextrose 1,800 mls @ 75 mls/hr 09/01/18 20:00 Tpn Adult IV 09/02/18 19:59 DAILY@1999 RAJ Protocol Lactated Ringer's 1,000 mls @ 75 mls/hr 09/01/18 13:07 09/01/18 13:20 Lactated Ringers IV 75 mls/hr DIRECT RAJ Administration Ondansetron HCl 4 mg 08/28/18 16:24 08/28/18 18:40 Zofran IV 4 mg Q8H PRN Administration Nausea And Vomiting Pantoprazole Sodium 40 mg 08/28/18 18:00 09/01/18 09:14 Protonix IV 40 mg DAILY RAJ Administration Propranolol HCl 60 mg 08/29/18 10:00 09/01/18 09:28 Inderal La PO Not Given QDAY RAJ Sodium Chloride 10 ml 08/28/18 22:00 09/01/18 09:14 Sodium Chloride Flush Syringe 10 Ml IV 10 ml BID RAJ Administration Sodium Chloride 10 ml 08/28/18 16:24 Sodium Chloride Flush Syringe 10 Ml IV PRN PRN LINE FLUSH Nutrition/Malnutrition Assess - Dietary Evaluation Nutrition/Malnutrition Findings: Nutrition Notes Start: 08/29/18 15:31 Freq: Status: Active Protocol: Document 09/01/18 14:33 RM (Rec: 09/01/18 14:38 RM [id number]) Nutrition Notes Initial or Follow up Reassessment Current Diagnosis Hypertension Other Pertinent Diagnosis N/V, Abdominal pain, SBO Current Diet TPN/PPN Labs/Tests P 1.9 Mg 1.7 Pertinent Medications Reviewed Height 5 ft 2 in Weight 59.4 kg [place] Body Weight (kg) 50.00 BMI 23.9 Subjective/Other Information CPN day 2. Pt planned for colectomy today . Percent of energy/protein needs met: 49%/100% Burn Absent Trauma Absent #1 Nutrition Diagnosis Malnutrition Diagnosis Progress(for reassessment Continues documentation) Is patient on ventilator? No Is Patient Ambulatory and/or Out of Bed Yes REE-([facility]-ambulatory/OOB) [ [id number] [id number]] Calculation Used for Recommendations [facility] Additional Notes Protein Needs: 71-89g (1.2-1. 5g/kg) Fluid Needs: 1 ml/kcal Nutrition Intervention Nutrition Support: PPN at 75 ml/hr: 30 mmol P, 15 mEq Mg Kcal 624 Protein (gm) 71 Carbohydrates (gm) 100 Fat (gm) 0 Fluid (mL) 1,800 Fiber (gm) 0 Add Supplement/Snack (indicate name/kcal Ensure Clear 1 daily once diet /protein ) advanced Provides kCal: 240 Provides Protein (gm) 8 Goal #1 PPN to meet nutritional needs as best possible Anticipated Discharge Needs: Unable to determine at this time Follow-Up By: 09/02/18 Additional Comments Follow for labs in AM: BMP, Mag, Phos, TG
[2018-09-01] MEDS ORDERED: SUBLIMAZE ONE (14:54)
[2018-09-01] MEDS ORDERED: DIPRIVAN 10 MG/ML IV ONE (14:55)
[2018-09-01] MEDS ORDERED: QUELICIN ONE (14:56)
[2018-09-01] MEDS ORDERED: DECADRON ONE (14:56)
[2018-09-01] MEDS ORDERED: ZEMURON IV ONE (14:56)
[2018-09-01] MEDS ORDERED: ROBINUL ONE (14:56)
[2018-09-01] MEDS ORDERED: XYLOCAINE MPF 2% ONE (14:56)
[2018-09-01] MEDS ORDERED: NEO SYNEPHRINE/NS Syringe(OR USE) IV ONE (14:56)
--- NOTE | 2018-09-01 16:17 | Post Operative Note ---
Date of procedure: 09/01/18 (dictation:[id number]) Pre-op diagnosis: SBO Post-op diagnosis: other (colon mass) Findings: large colon mass with enlarged lymph nodes and implants throughout the peritoneum, omentum, mesentery, liver Procedure: Right hemicolectomy with primary anastomosis omental biopsy peritoneal biopsies IVF 1200 UOP 150 EBL<50 Anesthesia: GETA Surgeon: WILEY WHITE Estimated blood loss: minimal Pathology: list (right colon, omental bx, peritoneal bxs) Specimen disposition: to lab Condition: stable Disposition: PACU
[2018-09-01] MEDS ORDERED: DILAUDID ONE (18:02)
[2018-09-01] MEDS ORDERED: DILAUDID IV PRN (18:28)
[2018-09-01] MEDS ORDERED: TPN ADULT 1,800 ML IV SCH (20:00)
[2018-09-01] MEDS ORDERED: MORPHINE IV PRN (23:06)
[2018-09-02 04:10] LABS: Basophils # (Auto) 0.1 K/mm3 (0.0-0.1); Basophils % (Auto) 0.3 % (0.0-1.8); Hematocrit 41.4 % (30.3-42.9); Hemoglobin 13.9 gm/dl (10.1-14.3); Lymphocytes # (Auto) 0.6 K/mm3 (1.2-5.4); Lymphocytes % (Auto) 3.5 % (13.4-35.0); Mean Corpuscular HGB Conc 34 % (30-34); Mean Corpuscular Volume 89 fl (79-97); Monocytes % (Auto) 10.9 % (0.0-7.3); Platelet Count 134 K/mm3 (140-440); Red Blood Count 4.64 M/mm3 (3.65-5.03); Red Cell Distribution Width 16.5 % (13.2-15.2)
[2018-09-02 04:31] LABS: BUN/Creatinine Ratio 34; Blood Urea Nitrogen 17 mg/dL (7-17); Calcium 8.3 mg/dL (8.4-10.2); Hemolysis Index 7
--- NOTE | 2018-09-02 04:45 | Event Note ---
Date: 09/02/18 Code met called 0308 Was called the patient's bedside due to bradycardia. 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 Status post partial colectomy with primary anastomosis 09/01 Subjective ; at the time of my exam patient is complaining of pain all over her belly. Her nurse for pain appears to be improved, she was initially clutching her belly and after she received half a milligram of morphine she had partial improvement of her pain Objective; labs from earlier today reviewed, she had low phosphate, but normal magnesium and potassium EKG reviewed; left bundle-branch block which is old, no acute changes seen on EKG, but telemetry reviewed and there was a period of bradycardia with a heart rate was 30 bpm with probably lasted about 15-20 seconds, it seems that the patient did not have any chest pain dizziness or any cardiac complaints at that time General.: Moderate distress due to pain, appears L HEENT: Moist mucous membranes, extraocular muscles intact, no lymphadenopathy Neck: supple Cardiac: S1-S2 heard Lungs: clear to auscultation bilaterally Abdomen: soft , nondistended, Extremities: no edema clubbing or cyanosis Skin: no rash or lesions Neurologic: no gross focal deficits Psych: calm, and cooperative Plan 12-lead EKG did not show any acute findings, transient bradycardia noted on telemetry Patient had a recent echocardiogram a few days prior which showed EF of 50%, impaired relaxation, was recently seen by cardiology and noted to be moderate risk for planned surgery Obtain stat labs including troponins, electrolytes and thyroid function tests, cardiology reconsulted Any Electrolytes deficiency to be replaced with TPN which patient is currently receiving -Patient is in moderate to severe pain, I highly doubt that 0.5mg of morphine was related to the transient bradycardia. Continue morphine as needed for pain CCT 33 mins
[2018-09-02] MEDS: ZOFRAN IV PRN (05:25)
--- NOTE | 2018-09-02 07:58 | Progress Note ---
Assessment and Plan - Patient Problems (1) Cecum mass Current Visit: Yes Status: Acute Plan to address problem: s/p right hemicolectomy, omental bx, peritoneal bxs - 09/01 - POD#1. Reviewed issues from last night. Appears dry this morning. Will give small bolus. Will also start scheduled zofran for 2 days as nausea is her main complaint. Need to ambulate. DVT prophylaxis. Subjective Date of service: 09/02/18 Patient Reports: Positive: still having pain, nausea Objective Vital Signs - 12hr 09/01/18 09/01/18 09/02/18 22:00 23:56 03:16 Temperature 97.6 F 97.5 F L Pulse Rate 81 79 81 Pulse Rate [ 81 Apical] Respiratory 18 18 Rate Blood Pressure 135/63 152/77 O2 Sat by Pulse 97 97 Oximetry - General physical appearance no distress, no pain, other (appears tired) - Respiratory normal expansion, normal respiratory effort - Abdomen soft, tender (mild), distended (mild), not guarding, not rigid, other (NGT with gastric appearing drainage) - Integumentary no rash, no growths, no abnormal pigmentation - Psychiatric oriented to time, oriented to person, oriented to place, speech is normal, memory intact - Labs 09/02/18 03:44 09/02/18 03:44 Diabetes panel 09/02/18 09/02/18 Range/Units 03:44 03:44 Sodium 135 L (137-145) mmol/L Potassium 3.8 (3.6-5.0) mmol/L Chloride 96.7 L (98-107) mmol/L Carbon Dioxide 24 (22-30) mmol/L BUN 17 (7-17) mg/dL Creatinine 0.5 L (0.7-1.2) mg/dL Glucose 203 H (65-100) mg/dL Calcium 8.3 L (8.4-10.2) mg/dL Triglycerides 75 (2-149) mg/dL Thyroid panel 09/02/18 09/02/18 Range/Units 03:44 03:44 TSH 7.070 H (0.270-4.200) mlU/mL Thyroxine (T4) 6.4 (4.0-12.0) ug/dL Calcium panel 09/02/18 Range/Units 03:44 Calcium 8.3 L (8.4-10.2) mg/dL Phosphorus 3.00 D (2.5-4.5) mg/dL Pituitary panel 09/02/18 09/02/18 09/02/18 Range/Units 03:44 03:44 03:44 Sodium 135 L (137-145) mmol/L Potassium 3.8 (3.6-5.0) mmol/L Chloride 96.7 L (98-107) mmol/L Carbon Dioxide 24 (22-30) mmol/L BUN 17 (7-17) mg/dL Creatinine 0.5 L (0.7-1.2) mg/dL Glucose 203 H (65-100) mg/dL Calcium 8.3 L (8.4-10.2) mg/dL TSH 7.070 H (0.270-4.200) mlU/mL Thyroxine (T4) 6.4 (4.0-12.0) ug/dL Adrenal panel 09/02/18 Range/Units 03:44 Sodium 135 L (137-145) mmol/L Potassium 3.8 (3.6-5.0) mmol/L Chloride 96.7 L (98-107) mmol/L Carbon Dioxide 24 (22-30) mmol/L BUN 17 (7-17) mg/dL Creatinine 0.5 L (0.7-1.2) mg/dL Glucose 203 H (65-100) mg/dL Calcium 8.3 L (8.4-10.2) mg/dL
[2018-09-02] MEDS ORDERED: NACL 0.9% 500 ML 500 ML IV NR (08:05)
[2018-09-02] MEDS: LOVENOX SUB-Q SCH (09:16)
[2018-09-02] MEDS: PROTONIX IV SCH (09:16)
[2018-09-02] MEDS: ZOFRAN IV SCH ×2 (09:16→16:52)
--- NOTE | 2018-09-02 09:17 | Post Anesthesia Evaluation ---
- Post Anesthesia Evaluation Patient Participated: Yes Airway Patent: Yes Stable Respiratory Function: Yes Nausea/Vomiting: No Temp > 96.8F: Yes Pain Manageable: Yes Adequeate Hydration: Yes Anesthesia Complications: No Other Comments: Late entry. Patient assessed in PACU prior to transfer to floor.
[2018-09-02] MEDS: SODIUM CHLORIDE FLUSH SYRINGE 10 ML IV SCH ×2 (09:33→22:00)
[2018-09-02 11:16] LABS: Bilirubin,Urine NEG (Negative); Blood,Urine NEG (Negative); Color,Urine Amber (Yellow); Hyaline Casts,Urine 3 /LPF; Mucus,Urine 3+ /HPF; Urobilinogen,Urine < 2.0 mg/dL (<2.0)
--- NOTE | 2018-09-02 11:35 | Progress Note ---
Assessment and Plan S/p right hemicolectomy with primary anastomosis yesterday. NGT in place, TPN infusing. currently in SR with LBBB, nadia SOLORIO was called overnight for bradycardia. tele reviewed and around 3AM pt developed sinus bradycardia with HR 30s and PVCs and with apparent transient complete heart block noted, BPs were stable. pt says her eyes were closed but she believes she was awake when the code OSMIN was called. 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 TSH noted to be significantly elevated, electrolytes WNL. Agree with holding AV jojo blocking agents and recommend tx to telemetry floor. D/w Dr. Alfaro. This bradycardic episode could be secondary to vasovagal response s/p abdominal surgery. Will continue to monitor closely and consider EP consultation if this becomes a recurrent issue. The patient has been seen in conjunction with Dr. Yaron Al who agrees with the assessment and plan of care. - Patient Problems (1) Acute abdominal pain Current Visit: Yes Status: Acute (2) Nausea and vomiting Current Visit: Yes Status: Acute (3) Cecum mass Current Visit: Yes Status: Acute (4) Small bowel obstruction Current Visit: Yes Status: Acute (5) HTN (hypertension) Current Visit: Yes Status: Chronic (6) LBBB (left bundle branch block) Current Visit: Yes Status: Chronic (7) Hypokalemia Current Visit: Yes Status: Acute (8) Sinus bradycardia Current Visit: Yes Status: Acute (9) AV block Current Visit: Yes Status: Acute (10) Elevated TSH Current Visit: Yes Status: Acute Subjective Date of service: 09/02/18 Principal diagnosis: colon mass Interval history: pt resting in bed, no current cardiac complaints, s/p abdominal surgery yesterday, NGT in place, TPN infusing. currently in SR with LBBB, nadia SOLORIO was called overnight for bradycardia. Objective Last Vital Signs Temp 97.6 F 09/02/18 08:00 Pulse 87 09/02/18 08:04 Resp 18 09/02/18 08:00 BP 148/63 09/02/18 08:00 Pulse Ox 95 09/02/18 08:04 - Physical Examination General: No Apparent Distress HEENT: Positive: PERRL, Normocephaly, Mucus Membranes Moist Neck: Positive: neck supple, trachea midline Cardiac: Positive: Reg Rate and Rhythm, S1/S2 Lungs: Positive: Decreased Breath Sounds Neuro: Positive: Grossly Intact Abdomen: Positive: Other (distended) Skin: Negative: Rash Musculoskeletal: No Pain - Labs and Meds Lipids 09/02/18 Range/Units 03:44 Triglycerides 75 (2-149) mg/dL CBC 09/02/18 Range/Units 03:44 WBC 18.1 H (4.5-11.0) K/mm3 RBC 4.64 (3.65-5.03) M/mm3 Hgb 13.9 (10.1-14.3) gm/dl Hct 41.4 (30.3-42.9) % Plt Count 134 L (140-440) K/mm3 Lymph # 0.6 L (1.2-5.4) K/mm3 [place] # 2.0 H (0.0-0.8) K/mm3 Eos # 0.0 (0.0-0.4) K/mm3 Baso # 0.1 (0.0-0.1) K/mm3 Comprehensive Metabolic Panel 09/02/18 Range/Units 03:44 Sodium 135 L (137-145) mmol/L Potassium 3.8 (3.6-5.0) mmol/L Chloride 96.7 L (98-107) mmol/L Carbon Dioxide 24 (22-30) mmol/L BUN 17 (7-17) mg/dL Creatinine 0.5 L (0.7-1.2) mg/dL Glucose 203 H (65-100) mg/dL Calcium 8.3 L (8.4-10.2) mg/dL - Imaging and Cardiology EKG: report reviewed, image reviewed Echo: report reviewed (08/2018: EF 50-55%, impaired relaxation, mild AR. 09/2016 showed EF 50%, grade 1 diastolic dysfunction. ) - Telemetry EKG Rhythm: Sinus Rhythm - EKG Sinus rhythms and dysrhythmias: sinus rhythm AV and intraventricular conduction: left bundle branch block
--- NOTE | 2018-09-02 16:28 | Progress Note ---
Assessment and Plan Assessment and plan: 88 YO Female with HTN, Anemia requiring blood transfusion presents to ED for evaluation. Pt states that has experienced nausea and multiple episodes of vomiting and abdominal pain over the past 1 week. Pt states that her pain is 3- 5/10, constant, diffuse, without exacerbating, or alleviating factors. Pt transported to [facility] via private vehicle. 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 complicated by PSBO on CT of abdomen/pelvis. Pt admitted to [facility] unit. Pt seen and evaluated by surgical team in ED. Pt denies fever, chills, chest pain, palpitations, trauma, unintentional weight loss, night sweats, productive cough, skin rash, or recent ill contacts. Prior admission on 09/28/15 reviewed. All listed medication reconciled at time of exam. ECG shows NSR with apparently new LBBB (not present on last ECG in office 09/2016). Echo done 09/2016 showed EF 50%, grade 1 diastolic dysfunction. Lexiscan MPI stress test 09/2015 which was negative, EF 50%. CT A/P IMPRESSION: 1. 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 Biopsy was taken. Patient will follow with her Oncologist MRI showed cecal mass and mesenteric lymphadenopathy. 2. Several enlarged pericecal lymph nodes concerning for neoplastic involvement. Stranding and nodularity of the left omentum could represent omental carcinomatosis. 3. Several simple hepatic cysts. Several additional low-attenuation hepatic lesions which are too small to characterize but may represent small cysts or metastatic lesions. MRI showed cysts, no liver metastases. 4. Small volume of scattered ascites. 5. Several nonspecific low-attenuation renal lesions which are higher in attenuation than simple cysts and may represent proteinaceous or hemorrhagic cysts versus solid renal neoplasms. Total oral intake; patient is on TPN. Assessment/Plan Cecal Mass: Surgery follow, GI evaluated and signed off. 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 Possible Metastatic lesion to liver and omentum: MRI didn't show hepatic metastasis. Hyponatermia: resolved. Metabolic Acidosis: Anticipate correction with hydration Nausea and Vomiting: Continue NGT, zofran PRN Patient is on TPN. Peritoneal irration/acute abdominal pain secondary to small bowel obstruction: Management as noted above Iron deficency anemia: As noted above patient follows with hematology oncology. Considering coronary consult hematology. Left bundle branch block: Echocardiogram; EF 50-55%, diastolic dysfunction. Hypokalemia: Replace Hypoglycemia: Start D5 with gentle hydration DVT/GI prophy History Interval history: Patient was seen and evaluated this morning, patient didn't have any complaints. Hospitalist Physical - Physical exam Narrative exam: Not in cardiopulmonary distress. The patient appeared well nourished and normally developed. Vital signs as documented. Head exam is unremarkable. No scleral icterus . Neck is without jugular venous distension, thyromegaly, or carotid bruits. Lungs are clear to auscultation. Cardiac exam reveals regular rate and Rhythm. Abdominal clean dressing in the abdomen. Extremities are nonedematous and both femoral and pedal pulses are normal. [employer]: Alert and oriented 3. No focal weakness. - Constitutional Vitals: Temp Pulse Resp BP Pulse Ox 97.7 F 89 24 141/60 97 09/02/18 12:26 09/02/18 12:26 09/02/18 12:26 09/02/18 12:26 09/02/18 12:26 General appearance: Present: mild distress Results - Labs CBC & Chem 7: 09/02/18 03:44 09/02/18 03:44 Labs: Laboratory Last Values WBC 18.1 K/mm3 (4.5-11.0) H 09/02/18 03:44 RBC 4.64 M/mm3 (3.65-5.03) 09/02/18 03:44 Hgb 13.9 gm/dl (10.1-14.3) 09/02/18 03:44 Hct 41.4 % (30.3-42.9) 09/02/18 03:44 MCV 89 fl (79-97) 09/02/18 03:44 MCH 30 pg (28-32) 09/02/18 03:44 MCHC 34 % (30-34) 09/02/18 03:44 RDW 16.5 % (13.2-15.2) H 09/02/18 03:44 Plt Count 134 K/mm3 (140-440) L 09/02/18 03:44 Lymph % (Auto) 3.5 % (13.4-35.0) L 09/02/18 03:44 [place] % (Auto) 10.9 % (0.0-7.3) H 09/02/18 03:44 Eos % (Auto) 0.0 % (0.0-4.3) 09/02/18 03:44 Baso % (Auto) 0.3 % (0.0-1.8) 09/02/18 03:44 Lymph # 0.6 K/mm3 (1.2-5.4) L 09/02/18 03:44 [place] # 2.0 K/mm3 (0.0-0.8) H 09/02/18 03:44 Eos # 0.0 K/mm3 (0.0-0.4) 09/02/18 03:44 Baso # 0.1 K/mm3 (0.0-0.1) 09/02/18 03:44 Add Manual Diff Complete 09/01/18 05:35 Total Counted 100 09/01/18 05:35 Seg Neutrophils % 85.3 % (40.0-70.0) H 09/02/18 03:44 Seg Neuts % (Manual) 77.0 % (40.0-70.0) H 09/01/18 05:35 1.0 % 09/01/18 05:35 7.0 % (13.4-35.0) L 09/01/18 05:35 Reactive Lymphs % (Man) 0 % 09/01/18 05:35 13.0 % (0.0-7.3) H 09/01/18 05:35 1.0 % (0.0-4.3) 09/01/18 05:35 1.0 % (0.0-1.8) 09/01/18 05:35 0 % 09/01/18 05:35 0 % 09/01/18 05:35 0 % 09/01/18 05:35 0 % 09/01/18 05:35 Nucleated RBC % Not Reportable 09/01/18 05:35 Seg Neutrophils # 15.4 K/mm3 (1.8-7.7) H 09/02/18 03:44 Seg Neutrophils # Man 4.9 K/mm3 (1.8-7.7) 09/01/18 05:35 Band Neutrophils # 0.1 K/mm3 09/01/18 05:35 0.4 K/mm3 (1.2-5.4) L 09/01/18 05:35 Abs React Lymphs (Man) 0.0 K/mm3 09/01/18 05:35 0.8 K/mm3 (0.0-0.8) 09/01/18 05:35 0.1 K/mm3 (0.0-0.4) 09/01/18 05:35 0.1 K/mm3 (0.0-0.1) 09/01/18 05:35 0.0 K/mm3 09/01/18 05:35 0.0 K/mm3 09/01/18 05:35 0.0 K/mm3 09/01/18 05:35 Blast Cells # 0.0 K/mm3 09/01/18 05:35 WBC Morphology Not Reportable 09/01/18 05:35 Hypersegmented Neuts Not Reportable 09/01/18 05:35 Hyposegmented Neuts Not Reportable 09/01/18 05:35 Hypogranular Neuts Not Reportable 09/01/18 05:35 Not Reportable 09/01/18 05:35 Not Reportable 09/01/18 05:35 Not Reportable 09/01/18 05:35 Not Reportable 09/01/18 05:35 Not Reportable 09/01/18 05:35 Not Reportable 09/01/18 05:35 Consistent w auto 09/01/18 05:35 Not Reportable 09/01/18 05:35 Plt Clumps, EDTA Not Reportable 09/01/18 05:35 Not Reportable 09/01/18 05:35 Not Reportable 09/01/18 05:35 Not Reportable 09/01/18 05:35 Plt Morphology Comment Not Reportable 09/01/18 05:35 RBC Morphology Not Reportable 09/01/18 05:35 Dimorphic RBCs Not Reportable 09/01/18 05:35 Not Reportable 09/01/18 05:35 Not Reportable 09/01/18 05:35 Not Reportable 09/01/18 05:35 1+ 09/01/18 05:35 Not Reportable 09/01/18 05:35 Not Reportable 09/01/18 05:35 Not Reportable 09/01/18 05:35 Not Reportable 09/01/18 05:35 Not Reportable 09/01/18 05:35 Not Reportable 09/01/18 05:35 Not Reportable 09/01/18 05:35 Not Reportable 09/01/18 05:35 Not Reportable 09/01/18 05:35 Not Reportable 09/01/18 05:35 Not Reportable 09/01/18 05:35 Not Reportable 09/01/18 05:35 Not Reportable 09/01/18 05:35 Not Reportable 09/01/18 05:35 Not Reportable 09/01/18 05:35 Acanthocytes (Spur) Not Reportable 09/01/18 05:35 Rouleaux Not Reportable 09/01/18 05:35 Not Reportable 09/01/18 05:35 Not Reportable 09/01/18 05:35 Not Reportable 09/01/18 05:35 Not Reportable 09/01/18 05:35 Hem Pathologist Commnt No 09/01/18 05:35 Sodium 135 mmol/L (137-145) L 09/02/18 03:44 Potassium 3.8 mmol/L (3.6-5.0) 09/02/18 03:44 Chloride 96.7 mmol/L (98-107) L 09/02/18 03:44 Carbon Dioxide 24 mmol/L (22-30) 09/02/18 03:44 18 mmol/L 09/02/18 03:44 BUN 17 mg/dL (7-17) 09/02/18 03:44 0.5 mg/dL (0.7-1.2) L 09/02/18 03:44 Estimated GFR > 60 ml/min 09/02/18 03:44 34 % 09/02/18 03:44 Glucose 203 mg/dL (65-100) H 09/02/18 03:44 POC Glucose 141 (70-105) H 09/02/18 11:37 Calcium 8.3 mg/dL (8.4-10.2) L 09/02/18 03:44 Phosphorus 3.00 mg/dL (2.5-4.5) D 09/02/18 03:44 Magnesium 2.00 mg/dL (1.7-2.3) 09/02/18 03:44 Iron 31 ug/dL (37-170) L 09/01/18 05:35 TIBC 115 mcg/dL (250-450) L 09/01/18 05:35 401.1 ng/mL (13.0-400.0) H 09/01/18 05:35 0.30 mg/dL (0.1-1.2) 08/29/18 05:55 AST 9 units/L (5-40) 08/29/18 05:55 ALT 6 units/L (7-56) L 08/29/18 05:55 67 units/L (35-129) 08/29/18 05:55 40 units/L (30-135) 08/28/18 12:41 CK-MB (CK-2) 2.3 ng/mL (0.0-4.0) 08/28/18 12:41 CK-MB (CK-2) Rel Index 5.7 (0-4) H 08/28/18 12:41 < 0.010 ng/mL (0.00-0.029) 09/02/18 09:38 4.9 g/dL (6.3-8.2) L 08/29/18 05:55 2.8 g/dL (3.9-5) L 08/29/18 05:55 1.3 % 08/29/18 05:55 Triglycerides 75 mg/dL (2-149) 09/02/18 03:44 15 units/L (13-60) 08/28/18 12:41 Carcinoembryonic Ag 5.2 ng/mL (0.0-2.4) H 08/28/18 15:49 Vitamin B12 > 2000 pg/mL (211-911) H 09/01/18 05:35 5.75 ng/mL (7.3-26.0) L 09/01/18 05:35 TSH 7.070 mlU/mL (0.270-4.200) H 09/02/18 03:44 Free T4 1.29 ng/dL (0.76-1.46) 09/02/18 03:44 6.4 ug/dL (4.0-12.0) 09/02/18 03:44 Dior (Yellow) 09/02/18 Unknown Hazy (Clear) 09/02/18 Unknown 5.0 (5.0-7.0) 09/02/18 Unknown Ur Specific [place] 1.023 (1.003-1.030) 09/02/18 Unknown 30 mg/dl mg/dL (Negative) 09/02/18 Unknown Neg mg/dL (Negative) 09/02/18 Unknown Neg mg/dL (Negative) 09/02/18 Unknown Neg (Negative) 09/02/18 Unknown Neg (Negative) 09/02/18 Unknown Neg (Negative) 09/02/18 Unknown < 2.0 mg/dL (<2.0) 09/02/18 Unknown Ur Leukocyte Esterase Tr (Negative) 09/02/18 Unknown 20.0 /HPF (0.0-6.0) H 09/02/18 Unknown 7.0 /HPF (0.0-6.0) 09/02/18 Unknown U Epithel Cells (Auto) 1.0 /HPF (0-13.0) 09/02/18 Unknown 1+ /HPF (Negative) 08/28/18 Unknown Hyaline Casts 3 /LPF 09/02/18 Unknown 3+ /HPF 09/02/18 Unknown Blood Type O POSITIVE 09/01/18 05:35 Antibody Screen Negative 09/01/18 05:35 Active Medications - Current Medications Current Medications: Generic Name Dose Route Start Last Admin Trade Name Freq PRN Reason Stop Dose Admin Acetaminophen 650 mg 08/28/18 16:24 08/29/18 21:45 Tylenol PO 650 mg Q4H PRN Administration Pain MILD(1-3)/Fever >100.5/[place] Enoxaparin Sodium 30 mg 09/02/18 10:00 09/02/18 09:16 Lovenox SUB-Q 30 mg QDAY RAJ Administration Hydralazine HCl 10 mg 09/01/18 09:00 09/01/18 17:55 Apresoline IV 10 mg Q4H PRN Administration Hypertension Amino Acids/Electrolytes/Dextrose 1,800 mls @ 75 mls/hr 09/01/18 20:00 09/01/18 20:37 Tpn Adult IV 09/02/18 19:59 75 mls/hr DAILY@[facility] Administration Protocol Amino Acids/Electrolytes/Dextrose 1,800 mls @ 75 mls/hr 09/02/18 20:00 Tpn Adult IV 09/03/18 19:59 DAILY@[facility] Protocol Fat Emulsion Intravenous 250 mls @ 21 mls/hr 09/02/18 20:00 Intralipid 20% IV 09/03/18 08:00 DAILY@2000 RAJ Morphine Sulfate 2 mg 09/02/18 04:51 Morphine IV Q4H PRN Pain, Moderate (4-6) Ondansetron HCl 4 mg 08/28/18 16:24 09/02/18 05:25 Zofran IV 4 mg Q8H PRN Administration Nausea And Vomiting Ondansetron HCl 8 mg 09/02/18 09:00 09/02/18 09:16 Zofran IV 09/04/18 08:59 8 mg Q8H RAJ Administration Pantoprazole Sodium 40 mg 08/28/18 18:00 09/02/18 09:16 Protonix IV 40 mg DAILY RAJ Administration Sodium Chloride 10 ml 08/28/18 22:00 09/02/18 09:33 Sodium Chloride Flush Syringe 10 Ml IV 10 ml BID RAJ Administration Sodium Chloride 10 ml 08/28/18 16:24 Sodium Chloride Flush Syringe 10 Ml IV PRN PRN LINE FLUSH Nutrition/Malnutrition Assess - Dietary Evaluation Nutrition/Malnutrition Findings: Nutrition Notes Start: 08/29/18 15:31 Freq: Status: Active Protocol: Document 09/02/18 15:31 RM (Rec: 09/02/18 15:46 RM [id number]) Nutrition Notes Initial or Follow up Reassessment Current Diagnosis Hypertension Other Pertinent Diagnosis S/P hemicolectomy, N/V, Abdominal pain, SBO Current Diet TPN/PPN Labs/Tests Na 125 Cl 96.7 Pertinent Medications Reviewed Height 5 ft 2 in Weight 59.4 kg [place] Body Weight (kg) 50.00 BMI 23.9 Subjective/Other Information CPN day 3. Pt had hemicolectomy today. PICC line placed yesterday. Percent of energy/protein needs met: 49%/100% Burn Absent Trauma Absent #1 Nutrition Diagnosis Malnutrition Diagnosis Progress(for reassessment Continues documentation) Is patient on ventilator? No Is Patient Ambulatory and/or Out of Bed Yes REE-([facility]-ambulatory/OOB) [ 1270.425 [id number]] Calculation Used for Recommendations [facility] Additional Notes Protein Needs: 71-89g (1.2-1. 5g/kg) Fluid Needs: 1 ml/kcal Nutrition Intervention Nutrition Support: CPN at 75 ml/hr: 8% Dextrose, 20% lipid 250 ml, 150 mEq Na, Cl:Acetate: 75:25 Kcal 1,294 Protein (gm) 71 Carbohydrates (gm) 150 Fat (gm) 50 Fluid (mL) 2,050 Fiber (gm) 0 Goal #1 CPN to meet nutritional needs as best possible Anticipated Discharge Needs: Unable to determine at this time Follow-Up By: 09/03/18 Additional Comments Follow for labs in AM: BMP, Mag, Phos
[2018-09-02] MEDS: MORPHINE IV PRN (16:44)
[2018-09-02] MEDS ORDERED: INTRALIPID 20% 250 ML IV SCH (20:00)
[2018-09-02] MEDS ORDERED: TPN ADULT 1,800 ML IV SCH (20:00)
--- NOTE | 2018-09-02 23:51 | Hem/Onc Progress Note ---
Assessment and Plan 1. Cecal mass. 2. Small-bowel obstruction. 3. Lymphadenopathy in abdomen 4. History of anemia, needing transfusion and she has been followed with Dr. Crews for IV iron. 5. History of renal cyst. 6. History of liver cyst. 7. In the liver, radiology mentions cyst versus neoplasm. PLAN: 1. We will await path 2. CEA 5. 3. Liver lesions mets versus cyst. MRI suggests cyst 4. h/o Nausea, abdominal pain secondary to tumor issues. I will follow the patient during inpatient stay. We will wait for the patholog y. Once the patient is d/c she will follow up with Dr. Crews on an outpatient basis. 09/02 h/o Low plt - will follow CEA 5 sx done pt had a question reg the proof of cancer - will await path - she will follow dr crews - at [place] pt last colonoscopy > 5 yrs ago last IRON 2017 - Patient Problems (1) Cecum mass Current Visit: Yes Status: Acute Subjective Date of service: 09/02/18 Principal diagnosis: colon mass Interval history: s/p sx Objective - Exam Narrative Exam: Pain none General appearance no acute distress Performance status - limited selfcare Eyes EOM intact ENT hearing intact/ Clear oral mucosa LNs cervical not palpable Neck normal ROM Respiratory Normal CTA - b/l CVS S1 S2 + Extremities normal temperature General GI Soft non tender s/p sx Rectal deferred Female - deferred Skin warm Musculoskeletal generalized weakness/ strength equal bilaterally Neurologically Focal deficit/ moves all extremities - Constitutional Vitals: Last Vital Signs Temp 98.0 F 09/02/18 19:26 Pulse 95 H 09/02/18 20:38 Resp 18 09/02/18 19:26 BP 169/71 09/02/18 19:26 Pulse Ox 96 09/02/18 19:26 - Labs Lab Results: Laboratory Results - last 24 hr 09/01/18 09/02/18 09/02/18 06:12 00:00 03:44 WBC RBC Hgb Hct MCV MCH MCHC RDW Plt Count Lymph % (Auto) [place] % (Auto) Eos % (Auto) Baso % (Auto) Lymph # [place] # Eos # Baso # Seg Neutrophils % Seg Neutrophils # Sodium Potassium Chloride Carbon Dioxide Anion Gap BUN Creatinine Estimated GFR BUN/Creatinine Ratio Glucose POC Glucose 111 H 222 H Calcium Phosphorus Magnesium Troponin T Triglycerides 75 TSH Free T4 Thyroxine (T4) Urine Color Urine Turbidity Urine pH Ur Specific [place] Urine Protein Urine Glucose (UA) Urine Ketones Urine Blood Urine Nitrite Urine Bilirubin Urine Urobilinogen Ur Leukocyte Esterase Urine WBC (Auto) Urine RBC (Auto) U Epithel Cells (Auto) Hyaline Casts Urine Mucus 09/02/18 09/02/18 09/02/18 03:44 03:44 03:44 WBC 18.1 H RBC 4.64 Hgb 13.9 Hct 41.4 MCV 89 MCH 30 MCHC 34 RDW 16.5 H Plt Count 134 L Lymph % (Auto) 3.5 L [place] % (Auto) 10.9 H Eos % (Auto) 0.0 Baso % (Auto) 0.3 Lymph # 0.6 L [place] # 2.0 H Eos # 0.0 Baso # 0.1 Seg Neutrophils % 85.3 H Seg Neutrophils # 15.4 H Sodium 135 L Potassium 3.8 Chloride 96.7 L Carbon Dioxide 24 Anion Gap 18 BUN 17 Creatinine 0.5 L Estimated GFR > 60 BUN/Creatinine Ratio 34 Glucose 203 H POC Glucose Calcium 8.3 L Phosphorus 3.00 D Magnesium 2.00 Troponin T < 0.010 Triglycerides TSH Free T4 Thyroxine (T4) Urine Color Urine Turbidity Urine pH Ur Specific [place] Urine Protein Urine Glucose (UA) Urine Ketones Urine Blood Urine Nitrite Urine Bilirubin Urine Urobilinogen Ur Leukocyte Esterase Urine WBC (Auto) Urine RBC (Auto) U Epithel Cells (Auto) Hyaline Casts Urine Mucus 09/02/18 09/02/18 09/02/18 03:44 03:44 03:44 WBC RBC Hgb Hct MCV MCH MCHC RDW Plt Count Lymph % (Auto) [place] % (Auto) Eos % (Auto) Baso % (Auto) Lymph # [place] # Eos # Baso # Seg Neutrophils % Seg Neutrophils # Sodium Potassium Chloride Carbon Dioxide Anion Gap BUN Creatinine Estimated GFR BUN/Creatinine Ratio Glucose POC Glucose Calcium Phosphorus Magnesium Troponin T Triglycerides TSH 7.070 H Free T4 1.29 Thyroxine (T4) 6.4 Urine Color Urine Turbidity Urine pH Ur Specific [place] Urine Protein Urine Glucose (UA) Urine Ketones Urine Blood Urine Nitrite Urine Bilirubin Urine Urobilinogen Ur Leukocyte Esterase Urine WBC (Auto) Urine RBC (Auto) U Epithel Cells (Auto) Hyaline Casts Urine Mucus 09/02/18 09/02/18 09/02/18 06:27 09:38 11:37 WBC RBC Hgb Hct MCV MCH MCHC RDW Plt Count Lymph % (Auto) [place] % (Auto) Eos % (Auto) Baso % (Auto) Lymph # [place] # Eos # Baso # Seg Neutrophils % Seg Neutrophils # Sodium Potassium Chloride Carbon Dioxide Anion Gap BUN Creatinine Estimated GFR BUN/Creatinine Ratio Glucose POC Glucose 159 H 141 H Calcium Phosphorus Magnesium Troponin T < 0.010 Triglycerides TSH Free T4 Thyroxine (T4) Urine Color Urine Turbidity Urine pH Ur Specific [place] Urine Protein Urine Glucose (UA) Urine Ketones Urine Blood Urine Nitrite Urine Bilirubin Urine Urobilinogen Ur Leukocyte Esterase Urine WBC (Auto) Urine RBC (Auto) U Epithel Cells (Auto) Hyaline Casts Urine Mucus 09/02/18 09/02/18 18:23 Unknown WBC RBC Hgb Hct MCV MCH MCHC RDW Plt Count Lymph % (Auto) [place] % (Auto) Eos % (Auto) Baso % (Auto) Lymph # [place] # Eos # Baso # Seg Neutrophils % Seg Neutrophils # Sodium Potassium Chloride Carbon Dioxide Anion Gap BUN Creatinine Estimated GFR BUN/Creatinine Ratio Glucose POC Glucose 124 H Calcium Phosphorus Magnesium Troponin T Triglycerides TSH Free T4 Thyroxine (T4) Urine Color [place] Urine Turbidity Hazy Urine pH 5.0 Ur Specific [place] 1.023 Urine Protein 30 mg/dl Urine Glucose (UA) Neg Urine Ketones Neg Urine Blood Neg Urine Nitrite Neg Urine Bilirubin Neg Urine Urobilinogen < 2.0 Ur Leukocyte Esterase Tr Urine WBC (Auto) 20.0 H Urine RBC (Auto) 7.0 U Epithel Cells (Auto) 1.0 Hyaline Casts 3 Urine Mucus 3+ Medications & Allergies - Medications Allergies/Adverse Reactions: Allergies acetaminophen [From Darvocet-N 100] Allergy (Verified 08/28/18 11:05) Unknown aspirin Allergy (Verified 08/28/18 11:05) Unknown codeine Allergy (Verified 08/28/18 11:05) Unknown propoxyphene napsylate [From Darvocet-N 100] Allergy (Verified 08/28/18 11:05) Unknown Home Medications: Home Medications Medication Instructions Recorded Confirmed Last Taken Type Propranolol HCl 60 mg PO QDAY 09/28/15 08/29/18 08/26/18 22:00 History ALPRAZolam [Xanax TAB] 0.25 mg PO BID PRN #10 tab 10/01/15 08/30/18 Unknown Rx Active Medications: Generic Name Dose Route Start Last Admin Trade Name Freq PRN Reason Stop Dose Admin Acetaminophen 650 mg 08/28/18 16:24 08/29/18 21:45 Tylenol PO 650 mg Q4H PRN Administration Pain MILD(1-3)/Fever >100.5/[place] Enoxaparin Sodium 30 mg 09/02/18 10:00 09/02/18 09:16 Lovenox SUB-Q 30 mg QDAY RAJ Administration Hydralazine HCl 10 mg 09/01/18 09:00 09/01/18 17:55 Apresoline IV 10 mg Q4H PRN Administration Hypertension Amino Acids/Electrolytes/Dextrose 1,800 mls @ 75 mls/hr 09/02/18 20:00 09/02/18 20:12 Tpn Adult IV 09/03/18 19:59 75 mls/hr DAILY@1999 RAJ Administration Protocol Fat Emulsion Intravenous 250 mls @ 21 mls/hr 09/02/18 20:00 09/02/18 20:14 Intralipid 20% IV 09/03/18 08:00 21 mls/hr DAILY@1999 RAJ Administration Morphine Sulfate 2 mg 09/02/18 04:51 09/02/18 16:44 Morphine IV 2 mg Q4H PRN Administration Pain, Moderate (4-6) Ondansetron HCl 4 mg 08/28/18 16:24 09/02/18 05:25 Zofran IV 4 mg Q8H PRN Administration Nausea And Vomiting Ondansetron HCl 8 mg 09/02/18 09:00 09/02/18 16:52 Zofran IV 09/04/18 08:59 8 mg Q8H RAJ Administration Pantoprazole Sodium 40 mg 08/28/18 18:00 09/02/18 09:16 Protonix IV 40 mg DAILY RAJ Administration Sodium Chloride 10 ml 08/28/18 22:00 09/02/18 09:33 Sodium Chloride Flush Syringe 10 Ml IV 10 ml BID RAJ Administration Sodium Chloride 10 ml 08/28/18 16:24 Sodium Chloride Flush Syringe 10 Ml IV PRN PRN LINE FLUSH
[2018-09-03] MEDS: APRESOLINE IV PRN (00:42)
[2018-09-03] MEDS: ZOFRAN IV SCH ×3 (02:44→17:32)
[2018-09-03 07:36] LABS: Hematocrit 35.3 % (30.3-42.9); Mean Corpuscular HGB Conc 34 % (30-34); Mean Corpuscular Volume 89 fl (79-97); Platelet Count 140 K/mm3 (140-440); Red Blood Count 3.95 M/mm3 (3.65-5.03); Red Cell Distribution Width 16.5 % (13.2-15.2)
[2018-09-03 07:57] LABS: BUN/Creatinine Ratio 37; Blood Urea Nitrogen 22 mg/dL (7-17); Calcium 7.8 mg/dL (8.4-10.2); Hemolysis Index 10
[2018-09-03] MEDS: LOVENOX SUB-Q SCH (10:06)
[2018-09-03] MEDS: PROTONIX IV SCH (10:06)
[2018-09-03] MEDS: SODIUM CHLORIDE FLUSH SYRINGE 10 ML IV SCH ×2 (10:07→21:36)
[2018-09-03] MEDS ORDERED: LASIX IV ONE (10:27)
[2018-09-03] MEDS ORDERED: NACL 0.9% 500 ML 500 ML IV ONE ×2 (10:56→15:00)
--- NOTE | 2018-09-03 10:57 | Progress Note ---
Assessment and Plan - Patient Problems (1) Cecum mass Current Visit: Yes Status: Acute Plan to address problem: s/p right hemicolectomy, omental bx, peritoneal bxs - 09/01 - POD#2. Appears stable. Plan: 1) try clears today. 2) Clamp NGT. Remove tonight or tomorrow if clears tolerated and nausea under control 3) OOB to chair. Will benefit from PT 4) TPN until diet advanced. 5) Small bolus as patient appears dry Please call with questions. Subjective Date of service: 09/03/18 Patient Reports: Positive: flatus, no bowel movement, nausea (better with meds). Negative: vomiting Objective Vital Signs - 12hr 09/02/18 09/03/18 09/03/18 23:26 04:37 09:50 Temperature 98.0 F 98.0 F 98.3 F Pulse Rate 101 H 100 H Respiratory 18 18 Rate Blood Pressure 175/78 153/62 Blood Pressure 156/70 [Right] O2 Sat by Pulse 96 Oximetry - General physical appearance no distress, no pain, other (has a little more energy today) - Respiratory normal expansion, normal respiratory effort, other (poor IS effort) - Abdomen soft, bowel sounds hypoactive, distended (mild), not guarding, not rigid, surgical scars (dressing with minimal drainage) - Psychiatric speech is normal - Labs 09/03/18 07:12 09/03/18 07:12 Diabetes panel 09/03/18 Range/Units 07:12 Sodium 135 L (137-145) mmol/L Potassium 3.9 (3.6-5.0) mmol/L Chloride 97.1 L (98-107) mmol/L Carbon Dioxide 25 (22-30) mmol/L BUN 22 H (7-17) mg/dL Creatinine 0.6 L (0.7-1.2) mg/dL Glucose 124 H (65-100) mg/dL Calcium 7.8 L (8.4-10.2) mg/dL Calcium panel 09/03/18 Range/Units 07:12 Calcium 7.8 L (8.4-10.2) mg/dL Phosphorus 2.40 L (2.5-4.5) mg/dL Pituitary panel 09/03/18 Range/Units 07:12 Sodium 135 L (137-145) mmol/L Potassium 3.9 (3.6-5.0) mmol/L Chloride 97.1 L (98-107) mmol/L Carbon Dioxide 25 (22-30) mmol/L BUN 22 H (7-17) mg/dL Creatinine 0.6 L (0.7-1.2) mg/dL Glucose 124 H (65-100) mg/dL Calcium 7.8 L (8.4-10.2) mg/dL Adrenal panel 09/03/18 Range/Units 07:12 Sodium 135 L (137-145) mmol/L Potassium 3.9 (3.6-5.0) mmol/L Chloride 97.1 L (98-107) mmol/L Carbon Dioxide 25 (22-30) mmol/L BUN 22 H (7-17) mg/dL Creatinine 0.6 L (0.7-1.2) mg/dL Glucose 124 H (65-100) mg/dL Calcium 7.8 L (8.4-10.2) mg/dL
--- NOTE | 2018-09-03 11:54 | Progress Note ---
Assessment and Plan Patient currently stable from cardiac standpoint, but will closely monitor heart rate and rhythm given recent events. Continue current cardiac management. Patient seen in conjunction with Dr. Decker, who agrees with assessment and plan. - Patient Problems (1) AV block Current Visit: Yes Status: Acute (2) Acute abdominal pain Current Visit: Yes Status: Acute (3) Cecum mass Current Visit: Yes Status: Acute (4) Nausea and vomiting Current Visit: Yes Status: Acute (5) Sinus bradycardia Current Visit: Yes Status: Acute (6) LBBB (left bundle branch block) Current Visit: Yes Status: Chronic (7) Elevated TSH Current Visit: Yes Status: Acute (8) Hypokalemia Current Visit: Yes Status: Acute (9) HTN (hypertension) Current Visit: Yes Status: Chronic Subjective Date of service: 09/03/18 Principal diagnosis: colon mass Interval history: Patient lying in bed in NAD. NGT in place. C/O swelling of hands and feet. Current SR in 90s with no events noted on telemetry. Objective Last Vital Signs Temp 98.3 F 09/03/18 09:50 Pulse 102 H 09/03/18 10:00 Resp 18 09/03/18 04:37 BP 156/70 09/03/18 09:50 Pulse Ox 96 09/03/18 04:37 - Physical Examination General: No Apparent Distress HEENT: Positive: PERRL, Normocephaly, Mucus Membranes Moist Neck: Positive: neck supple, trachea midline Cardiac: Positive: Reg Rate and Rhythm Lungs: Positive: Normal Exam Neuro: Positive: Grossly Intact, Resting Tremor Abdomen: Positive: Soft, Other (distended) /Rectal: Other (Deferred) Skin: Positive: Clear. Negative: Rash Musculoskeletal: No Pain Gait: Other (Unable to assess) Extremities: Present: +1 Edema (BL UE and LE) - Labs and Meds CBC 09/03/18 Range/Units 07:12 WBC 11.7 H (4.5-11.0) K/mm3 RBC 3.95 (3.65-5.03) M/mm3 Hgb 12.0 (10.1-14.3) gm/dl Hct 35.3 D (30.3-42.9) % Plt Count 140 (140-440) K/mm3 Comprehensive Metabolic Panel 09/03/18 Range/Units 07:12 Sodium 135 L (137-145) mmol/L Potassium 3.9 (3.6-5.0) mmol/L Chloride 97.1 L (98-107) mmol/L Carbon Dioxide 25 (22-30) mmol/L BUN 22 H (7-17) mg/dL Creatinine 0.6 L (0.7-1.2) mg/dL Glucose 124 H (65-100) mg/dL Calcium 7.8 L (8.4-10.2) mg/dL - Imaging and Cardiology EKG: report reviewed, image reviewed Echo: report reviewed (08/2018: EF 50-55%, impaired relaxation, mild AR. 09/2016 showed EF 50%, grade 1 diastolic dysfunction. ) - Telemetry EKG Rhythm: Sinus Rhythm - EKG Sinus rhythms and dysrhythmias: sinus rhythm AV and intraventricular conduction: left bundle branch block
[2018-09-03 12:09] LABS: Basophils % (Manual) 0 % (0.0-1.8); Eosinophils % (Manual) 0 % (0.0-4.3); Total Cells Counted 100
[2018-09-03 12:10] LABS: Platelet Estimate Consistent w Auto
[2018-09-03] MEDS ORDERED: ZOFRAN IV ONE (15:40)
--- NOTE | 2018-09-03 17:25 | Progress Note ---
Assessment and Plan Assessment and plan: 88 YO Female with HTN, Anemia requiring blood transfusion presents to ED for evaluation. Pt states that has experienced nausea and multiple episodes of vomiting and abdominal pain over the past 1 week. Pt states that her pain is 3- 5/10, constant, diffuse, without exacerbating, or alleviating factors. Pt transported to [facility] via private vehicle. 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 complicated by PSBO on CT of abdomen/pelvis. Pt admitted to E[facility] unit. Pt seen and evaluated by surgical team in ED. Pt denies fever, chills, chest pain, palpitations, trauma, unintentional weight loss, night sweats, productive cough, skin rash, or recent ill contacts. Prior admission on 09/28/15 reviewed. All listed medication reconciled at time of exam. ECG shows NSR with apparently new LBBB (not present on last ECG in office 09/2016). Echo done 09/2016 showed EF 50%, grade 1 diastolic dysfunction. Lexiscan MPI stress test 09/2015 which was negative, EF 50%. CT A/P IMPRESSION: 1. 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 Biopsy was taken. Patient will follow with her Oncologist MRI showed cecal mass and mesenteric lymphadenopathy. 2. Several enlarged pericecal lymph nodes concerning for neoplastic involvement. Stranding and nodularity of the left omentum could represent omental carcinomatosis. 3. Several simple hepatic cysts. Several additional low-attenuation hepatic lesions which are too small to characterize but may represent small cysts or metastatic lesions. MRI showed cysts, no liver metastases. 4. Small volume of scattered ascites. 5. Several nonspecific low-attenuation renal lesions which are higher in attenuation than simple cysts and may represent proteinaceous or hemorrhagic cysts versus solid renal neoplasms. Total oral intake; patient is on TPN. Assessment/Plan Cecal Mass: Surgery follow, GI evaluated and signed off. 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 Possible Metastatic lesion to liver and omentum: MRI didn't show hepatic metastasis. Hyponatermia: resolved. Metabolic Acidosis: Anticipate correction with hydration Nausea and Vomiting: Continue NGT, zofran PRN Patient is on TPN. Peritoneal irration/acute abdominal pain secondary to small bowel obstruction: Management as noted above Iron deficency anemia: As noted above patient follows with hematology oncology. Considering coronary consult hematology. Left bundle branch block: Echocardiogram; EF 50-55%, diastolic dysfunction. Hypokalemia: Repleted. DVT/GI prophy History Interval history: Patient was seen and evaluated this morning, patient is complaining dizziness and nausea. Hospitalist Physical - Physical exam Narrative exam: Not in cardiopulmonary distress. The patient appeared well nourished and normally developed. Vital signs as documented. Head exam is unremarkable. No scleral icterus . Neck is without jugular venous distension, thyromegaly, or carotid bruits. Lungs are clear to auscultation. Cardiac exam reveals regular rate and Rhythm. Abdominal clean dressing in the abdomen. Extremities are nonedematous and both femoral and pedal pulses are normal. [employer]: Alert and oriented 3. No focal weakness. - Constitutional Vitals: Temp Pulse Resp BP Pulse Ox 98.3 F 102 H 18 156/70 96 09/03/18 09:50 09/03/18 10:00 09/03/18 04:37 09/03/18 09:50 09/03/18 04:37 General appearance: Present: mild distress Results - Labs CBC & Chem 7: 09/03/18 07:12 09/03/18 07:12 Labs: Laboratory Last Values WBC 11.7 K/mm3 (4.5-11.0) H 09/03/18 07:12 RBC 3.95 M/mm3 (3.65-5.03) 09/03/18 07:12 Hgb 12.0 gm/dl (10.1-14.3) 09/03/18 07:12 Hct 35.3 % (30.3-42.9) D 09/03/18 07:12 MCV 89 fl (79-97) 09/03/18 07:12 MCH 30 pg (28-32) 09/03/18 07:12 MCHC 34 % (30-34) 09/03/18 07:12 RDW 16.5 % (13.2-15.2) H 09/03/18 07:12 Plt Count 140 K/mm3 (140-440) 09/03/18 07:12 Lymph % (Auto) 3.5 % (13.4-35.0) L 09/02/18 03:44 Tift % (Auto) Luncheonette Operator 09/03/18 07:12 Eos % (Auto) 0.0 % (0.0-4.3) 09/02/18 03:44 Baso % (Auto) 0.3 % (0.0-1.8) 09/02/18 03:44 Lymph # 0.6 K/mm3 (1.2-5.4) L 09/02/18 03:44 Tift # 2.0 K/mm3 (0.0-0.8) H 09/02/18 03:44 Eos # 0.0 K/mm3 (0.0-0.4) 09/02/18 03:44 Baso # 0.1 K/mm3 (0.0-0.1) 09/02/18 03:44 Add Manual Diff Complete 09/03/18 07:12 Total Counted 100 09/03/18 07:12 Seg Neutrophils % 85.3 % (40.0-70.0) H 09/02/18 03:44 Seg Neuts % (Manual) 89.0 % (40.0-70.0) H 09/03/18 07:12 0 % 09/03/18 07:12 3.0 % (13.4-35.0) L 09/03/18 07:12 Reactive Lymphs % (Man) 0 % 09/03/18 07:12 8.0 % (0.0-7.3) H 09/03/18 07:12 0 % (0.0-4.3) 09/03/18 07:12 0 % (0.0-1.8) 09/03/18 07:12 0 % 09/03/18 07:12 0 % 09/03/18 07:12 0 % 09/03/18 07:12 0 % 09/03/18 07:12 Nucleated RBC % Not Reportable 09/03/18 07:12 Seg Neutrophils # 15.4 K/mm3 (1.8-7.7) H 09/02/18 03:44 Seg Neutrophils # Man 10.4 K/mm3 (1.8-7.7) H 09/03/18 07:12 Band Neutrophils # 0.0 K/mm3 09/03/18 07:12 0.4 K/mm3 (1.2-5.4) L 09/03/18 07:12 Abs React Lymphs (Man) 0.0 K/mm3 09/03/18 07:12 0.9 K/mm3 (0.0-0.8) H 09/03/18 07:12 0.0 K/mm3 (0.0-0.4) 09/03/18 07:12 0.0 K/mm3 (0.0-0.1) 09/03/18 07:12 0.0 K/mm3 09/03/18 07:12 0.0 K/mm3 09/03/18 07:12 0.0 K/mm3 09/03/18 07:12 Blast Cells # 0.0 K/mm3 09/03/18 07:12 WBC Morphology Not Reportable 09/03/18 07:12 Hypersegmented Neuts Not Reportable 09/03/18 07:12 Hyposegmented Neuts Not Reportable 09/03/18 07:12 Hypogranular Neuts Not Reportable 09/03/18 07:12 Not Reportable 09/03/18 07:12 Not Reportable 09/03/18 07:12 Not Reportable 09/03/18 07:12 Not Reportable 09/03/18 07:12 Not Reportable 09/03/18 07:12 Not Reportable 09/03/18 07:12 Consistent w auto 09/03/18 07:12 Not Reportable 09/03/18 07:12 Plt Clumps, EDTA Not Reportable 09/03/18 07:12 Not Reportable 09/03/18 07:12 Not Reportable 09/03/18 07:12 Not Reportable 09/03/18 07:12 Plt Morphology Comment Not Reportable 09/03/18 07:12 RBC Morphology Not Reportable 09/03/18 07:12 Dimorphic RBCs Not Reportable 09/03/18 07:12 Not Reportable 09/03/18 07:12 Not Reportable 09/03/18 07:12 Not Reportable 09/03/18 07:12 Not Reportable 09/03/18 07:12 Not Reportable 09/03/18 07:12 Not Reportable 09/03/18 07:12 Not Reportable 09/03/18 07:12 Not Reportable 09/03/18 07:12 Not Reportable 09/03/18 07:12 Not Reportable 09/03/18 07:12 Not Reportable 09/03/18 07:12 Not Reportable 09/03/18 07:12 Not Reportable 09/03/18 07:12 Not Reportable 09/03/18 07:12 Not Reportable 09/03/18 07:12 Not Reportable 09/03/18 07:12 Not Reportable 09/03/18 07:12 Not Reportable 09/03/18 07:12 Few 09/03/18 07:12 Acanthocytes (Spur) Not Reportable 09/03/18 07:12 Rouleaux Not Reportable 09/03/18 07:12 Not Reportable 09/03/18 07:12 Not Reportable 09/03/18 07:12 Not Reportable 09/03/18 07:12 Not Reportable 09/03/18 07:12 Hem Pathologist Commnt No 09/03/18 07:12 Sodium 135 mmol/L (137-145) L 09/03/18 07:12 Potassium 3.9 mmol/L (3.6-5.0) 09/03/18 07:12 Chloride 97.1 mmol/L (98-107) L 09/03/18 07:12 Carbon Dioxide 25 mmol/L (22-30) 09/03/18 07:12 17 mmol/L 09/03/18 07:12 BUN 22 mg/dL (7-17) H 09/03/18 07:12 0.6 mg/dL (0.7-1.2) L 09/03/18 07:12 Estimated GFR > 60 ml/min 09/03/18 07:12 37 % 09/03/18 07:12 Glucose 124 mg/dL (65-100) H 09/03/18 07:12 POC Glucose 152 (70-105) H 09/03/18 12:55 Calcium 7.8 mg/dL (8.4-10.2) L 09/03/18 07:12 Phosphorus 2.40 mg/dL (2.5-4.5) L 09/03/18 07:12 Magnesium 2.20 mg/dL (1.7-2.3) 09/03/18 07:12 Iron 31 ug/dL (37-170) L 09/01/18 05:35 TIBC 115 mcg/dL (250-450) L 09/01/18 05:35 401.1 ng/mL (13.0-400.0) H 09/01/18 05:35 0.30 mg/dL (0.1-1.2) 08/29/18 05:55 AST 9 units/L (5-40) 08/29/18 05:55 ALT 6 units/L (7-56) L 08/29/18 05:55 67 units/L (35-129) 08/29/18 05:55 40 units/L (30-135) 08/28/18 12:41 CK-MB (CK-2) 2.3 ng/mL (0.0-4.0) 08/28/18 12:41 CK-MB (CK-2) Rel Index 5.7 (0-4) H 08/28/18 12:41 < 0.010 ng/mL (0.00-0.029) 09/02/18 09:38 4.9 g/dL (6.3-8.2) L 08/29/18 05:55 2.8 g/dL (3.9-5) L 08/29/18 05:55 1.3 % 08/29/18 05:55 Triglycerides 75 mg/dL (2-149) 09/02/18 03:44 15 units/L (13-60) 08/28/18 12:41 Carcinoembryonic Ag 5.2 ng/mL (0.0-2.4) H 08/28/18 15:49 Vitamin B12 > 2000 pg/mL (211-911) H 09/01/18 05:35 5.75 ng/mL (7.3-26.0) L 09/01/18 05:35 TSH 7.070 mlU/mL (0.270-4.200) H 09/02/18 03:44 Free T4 1.29 ng/dL (0.76-1.46) 09/02/18 03:44 6.4 ug/dL (4.0-12.0) 09/02/18 03:44 Dior (Yellow) 09/02/18 Unknown Hazy (Clear) 09/02/18 Unknown 5.0 (5.0-7.0) 09/02/18 Unknown Ur Specific [place] 1.023 (1.003-1.030) 09/02/18 Unknown 30 mg/dl mg/dL (Negative) 09/02/18 Unknown Neg mg/dL (Negative) 09/02/18 Unknown Neg mg/dL (Negative) 09/02/18 Unknown Neg (Negative) 09/02/18 Unknown Neg (Negative) 09/02/18 Unknown Neg (Negative) 09/02/18 Unknown < 2.0 mg/dL (<2.0) 09/02/18 Unknown Ur Leukocyte Esterase Tr (Negative) 09/02/18 Unknown 20.0 /HPF (0.0-6.0) H 09/02/18 Unknown 7.0 /HPF (0.0-6.0) 09/02/18 Unknown U Epithel Cells (Auto) 1.0 /HPF (0-13.0) 09/02/18 Unknown 1+ /HPF (Negative) 08/28/18 Unknown Hyaline Casts 3 /LPF 09/02/18 Unknown 3+ /HPF 09/02/18 Unknown Blood Type O POSITIVE 09/01/18 05:35 Antibody Screen Negative 09/01/18 05:35 Active Medications - Current Medications Current Medications: Generic Name Dose Route Start Last Admin Trade Name Freq PRN Reason Stop Dose Admin Acetaminophen 650 mg 08/28/18 16:24 08/29/18 21:45 Tylenol PO 650 mg Q4H PRN Administration Pain MILD(1-3)/Fever >100.5/[place] Enoxaparin Sodium 30 mg 09/02/18 10:00 09/03/18 10:06 Lovenox SUB-Q 30 mg QDAY RAJ Administration Hydralazine HCl 10 mg 09/01/18 09:00 09/03/18 00:42 Apresoline IV 10 mg Q4H PRN Administration Hypertension Amino Acids/Electrolytes/Dextrose 1,800 mls @ 75 mls/hr 09/02/18 20:00 09/02/18 20:12 Tpn Adult IV 09/03/18 19:59 75 mls/hr DAILY@1999 [facility] Administration Protocol Amino Acids/Electrolytes/Dextrose 1,800 mls @ 75 mls/hr 09/03/18 20:00 Tpn Adult IV 09/04/18 19:59 DAILY@1999 [facility] Protocol Morphine Sulfate 2 mg 09/02/18 04:51 09/02/18 16:44 Morphine IV 2 mg Q4H PRN Administration Pain, Moderate (4-6) Ondansetron HCl 4 mg 08/28/18 16:24 09/02/18 05:25 Zofran IV 4 mg Q8H PRN Administration Nausea And Vomiting Ondansetron HCl 8 mg 09/02/18 09:00 09/03/18 10:06 Zofran IV 09/04/18 08:59 8 mg Q8H RAJ Administration Pantoprazole Sodium 40 mg 08/28/18 18:00 09/03/18 10:06 Protonix IV 40 mg DAILY RAJ Administration Sodium Chloride 10 ml 08/28/18 22:00 09/03/18 10:07 Sodium Chloride Flush Syringe 10 Ml IV 10 ml BID RAJ Administration Sodium Chloride 10 ml 08/28/18 16:24 Sodium Chloride Flush Syringe 10 Ml IV PRN PRN LINE FLUSH Nutrition/Malnutrition Assess - Dietary Evaluation Nutrition/Malnutrition Findings: Nutrition Notes Start: 08/29/18 15:31 Freq: Status: Active Protocol: Document 09/03/18 10:56 LP (Rec: 09/03/18 11:08 LP [id number]) Nutrition Notes Initial or Follow up Reassessment Current Diagnosis Hypertension Other Pertinent Diagnosis S/P hemicolectomy,abdominal wound Current Diet CPN at 75ml/hr Labs/Tests Na 135 previous 09/02 135 not 125 Phos 2.4 Pertinent Medications Reviewed Height 5 ft 2 in Weight 59.4 kg [place] Body Weight (kg) 50.00 BMI 23.9 Subjective/Other Information CPN day 4. Diet advanced to CL today. Percent of energy/protein needs met: 100%100% Burn Absent Trauma Absent #1 Nutrition Diagnosis Malnutrition Diagnosis Progress(for reassessment Continues documentation) Is patient on ventilator? No Is Patient Ambulatory and/or Out of Bed Yes REE-([facility]-ambulatory/OOB) [ 1270.425 [id number]] Calculation Used for Recommendations [facility] Additional Notes Protein Needs: 71-89g (1.2-1. 5g/kg) Fluid Needs: 1 ml/kcal Nutrition Intervention Change Diet Order: CPN and CL diet Nutrition Support: CPN at 75ml/hr: 32mmol phos Osmolarity: 1089 Kcal 794 Protein (gm) 71 Carbohydrates (gm) 150 Fat (gm) 0 Fluid (mL) 1,800 Fiber (gm) 0 Goal #1 CPN and CL diet to meet kcal and protein needs as best as possible Anticipated Discharge Needs: Unable to determine at this time Follow-Up By: 09/04/18 Additional Comments Labs in AM: Mg SEBASTIÁN, Harshil
[2018-09-03] MEDS ORDERED: TPN ADULT 1,800 ML IV SCH (20:00)
[2018-09-03] MEDS: ZOFRAN IV PRN (21:46)
--- NOTE | 2018-09-04 00:13 | Operative Report ---
PREOPERATIVE DIAGNOSIS: Small-bowel obstruction and mass at the cecum. POSTOPERATIVE DIAGNOSIS: Probable colon cancer with metastatic disease. PROCEDURE: Open right hemicolectomy with omental and peritoneal biopsies. ANESTHESIA: General. IV FLUIDS: 1200 mL. URINE OUTPUT: 150 mL. ESTIMATED BLOOD LOSS: Less than 50 mL. FINDINGS: The patient had a very large angry looking mass at the cecum. There were enlarged lymph nodes in the right colon mesentery with numerous implants throughout the peritoneum, omentum, small bowel mesentery and liver. No other masses were felt in the rest of the colon. SPECIMEN: Right colon. DRAINS: None. COMPLICATIONS: None. DISPOSITION: Stable, transferred to Recovery. INDICATIONS: This is an 88-year-old female who presented with a bowel obstruction. CT evidenced showed what appeared to be a possible mass as the cause in the right colon. The patient was resuscitated, evaluated by Cardiology. The patient was assessed to have a need for right hemicolectomy due to the situation as the patient was obstructed and had dilated small bowel. In laparoscopic approach, we did not feel that it would be appropriate. Therefore, an open procedure was recommended. The procedure, risks and benefits were explained to the patient and family. Risks included but were not limited to infection, bleeding, pain, injury to surrounding structures, possible ostomy, possible need for further procedures in the future. The patient and family understood. Consent was obtained. OPERATIVE NOTE: The patient was brought down to the operating room and placed on the table in supine position. After adequate general anesthesia was established, the patient was prepped and draped in the usual sterile fashion. Antibiotics have been given. SCDs were in place. Time-out was called. I began by making a sharp midline incision. Dissection was carried down into the peritoneal cavity, we entered safely. Fascia was opened up completely. We began by just doing a general inspection, we identified the cecal mass very easily. The right colon was very mobile, which made the dissection easy. Unfortunately, I found numerous implants as I checked the whole abdomen. A lot of implants, small 1-2 mm size implants were found in the pelvis, behind the liver, underneath the liver, was scattered throughout the small bowel mesentery and on the peritoneum. We found implants on the omentum as well. Large lymph nodes were found in the colon mesentery. The rest of the colon did not have any masses. At this point, I felt that we would not have curative resection, but it was still worthwhile to do a right hemicolectomy for palliative measures so that the patient would have resolution of her obstruction and be able to eat again. Therefore, we proceeded to mobilize the right colon from the lateral wall, as it was very mobile, this was a very straightforward dissection for us. I was able to easily mobilize the right colon and maintained the retroperitoneal plane. We got into the correct plane. We had no bleeding. I divided the small bowel about 10 cm proximal to the ileocecal valve and then I dissected the transverse colon to the patient's right of the middle colic vessel. I dissected everything down. I mobilized everything all the way down to the ileocolic vessels. I individually dissected them out. I placed 2-0 silk ties at the base and then using the EnSeal device to divide above it. We had very good hemostasis. Prior to any division, I did make sure that the retroperitoneum was intact and that we had not inadvertently elevated the ureter or dissected out the ureter, which we did not. I made sure in dividing the mesentery with the EnSeal that we got underneath all the enlarged lymph nodes. I identified the duodenum and make sure we stayed away from that area. We dissected everything out. The specimen was passed off the table in sterile fashion. We then turned our attention to the anastomosis. The transverse colon and small bowel were brought together with silk sutures used to align them. I cut off a portion of the staple line from each one and then placed the [place] stapler into each limb. We used a blue load to create the anastomosis. Please note that for the prior divisions of bowel we used the [place] stapler using blue loads. We had a very nice anastomosis. There was no bleeding. We used the TA stapler with a blue load to close the new enterotomy. I oversewed this area with interrupted 3-0 silk Lembert sutures to reinforce it. We made sure we had one stitch at the crotch. I closed the omental defect with interrupted 3-0 Vicryl sutures. We thoroughly irrigated out the abdomen and then we changed gloves and proceeded to close the abdomen using a looped 0 PDS stitch. I closed the fascia starting at the inferior aspect and then going up to the superior aspect. Wound was thoroughly irrigated. Skin was closed with renee. The patient tolerated the procedure well and there were no complications. All counts were correct at the end of the case. I had an extensive discussion with the family and answered all their questions. They are very appreciative of your help. JOB# [id number] FABIAN/CHARMAINE ORTIZ
[2018-09-04] MEDS: ZOFRAN IV SCH (02:36)
[2018-09-04 06:27] LABS: Hematocrit 31.8 % (30.3-42.9); Mean Corpuscular HGB Conc 35 % (30-34); Mean Corpuscular Volume 89 fl (79-97); Platelet Count 121 K/mm3 (140-440); Red Blood Count 3.57 M/mm3 (3.65-5.03); Red Cell Distribution Width 16.6 % (13.2-15.2)
[2018-09-04 06:48] LABS: BUN/Creatinine Ratio 60; Blood Urea Nitrogen 18 mg/dL (7-17); Calcium 7.2 mg/dL (8.4-10.2); Hemolysis Index 3
[2018-09-04] MEDS: ZOFRAN IV PRN (09:59)
[2018-09-04] MEDS: MORPHINE IV PRN (09:59)
[2018-09-04 10:27] LABS: Basophils % (Manual) 0 % (0.0-1.8); Total Cells Counted 100
[2018-09-04 10:28] LABS: Platelet Estimate Consistent w Auto; RBC Morphology Normal
[2018-09-04] MEDS: LOVENOX SUB-Q SCH (12:30)
[2018-09-04] MEDS: PROTONIX IV SCH (12:30)
[2018-09-04] MEDS: SODIUM CHLORIDE FLUSH SYRINGE 10 ML IV SCH ×2 (12:32→21:09)
--- NOTE | 2018-09-04 12:51 | Progress Note ---
Assessment and Plan - Patient Problems (1) Cecum mass Current Visit: Yes Status: Acute Plan to address problem: s/p right hemicolectomy, omental bx, peritoneal bxs - 09/01 - POD#3. Appears stable. Plan: 1) continue clears for comfort. 2) NGT to LIS. remove once distention resolves 3) OOB to chair. Will benefit from PT 4) TPN until diet advanced. 5) d/c narcotics as it makes her sick. Use tylenol and prn toradol for pain Please call with questions. Subjective Date of service: 09/04/18 Patient Reports: Positive: tolerating liquids well, flatus, no bowel movement, nausea (steady), other (morphine makes her sick) Objective Vital Signs - 12hr 09/04/18 03:49 Temperature 98.9 F Pulse Rate 82 Respiratory 18 Rate Blood Pressure 150/116 O2 Sat by Pulse 97 Oximetry - General physical appearance no distress, no pain, other (little more awake today) - Eyes normal occular movement - Respiratory normal expansion, normal respiratory effort - Abdomen soft, tender (mild), bowel sounds hypoactive, distended, not guarding, not rigid, surgical scars (C/d/I) - Integumentary no rash, no growths, no abnormal pigmentation - Psychiatric speech is normal - Labs 09/04/18 05:50 09/04/18 05:50 Diabetes panel 09/04/18 Range/Units 05:50 Sodium 135 L (137-145) mmol/L Potassium 4.0 (3.6-5.0) mmol/L Chloride 99.6 (98-107) mmol/L Carbon Dioxide 25 (22-30) mmol/L BUN 18 H (7-17) mg/dL Creatinine 0.3 L (0.7-1.2) mg/dL Glucose 102 H (65-100) mg/dL Calcium 7.2 L (8.4-10.2) mg/dL Calcium panel 09/04/18 Range/Units 05:50 Calcium 7.2 L (8.4-10.2) mg/dL Phosphorus 2.50 (2.5-4.5) mg/dL Pituitary panel 09/04/18 Range/Units 05:50 Sodium 135 L (137-145) mmol/L Potassium 4.0 (3.6-5.0) mmol/L Chloride 99.6 (98-107) mmol/L Carbon Dioxide 25 (22-30) mmol/L BUN 18 H (7-17) mg/dL Creatinine 0.3 L (0.7-1.2) mg/dL Glucose 102 H (65-100) mg/dL Calcium 7.2 L (8.4-10.2) mg/dL Adrenal panel 09/04/18 Range/Units 05:50 Sodium 135 L (137-145) mmol/L Potassium 4.0 (3.6-5.0) mmol/L Chloride 99.6 (98-107) mmol/L Carbon Dioxide 25 (22-30) mmol/L BUN 18 H (7-17) mg/dL Creatinine 0.3 L (0.7-1.2) mg/dL Glucose 102 H (65-100) mg/dL Calcium 7.2 L (8.4-10.2) mg/dL
--- NOTE | 2018-09-04 13:27 | Progress Note ---
Assessment and Plan Assessment and plan: 88 YO Female with HTN, Anemia requiring blood transfusion presents to ED for evaluation. Pt states that has experienced nausea and multiple episodes of vomiting and abdominal pain over the past 1 week. Pt states that her pain is 3- 5/10, constant, diffuse, without exacerbating, or alleviating factors. Pt transported to [facility] via private vehicle. 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 complicated by PSBO on CT of abdomen/pelvis. Pt admitted to EDEL unit. Pt seen and evaluated by surgical team in ED. Pt denies fever, chills, chest pain, palpitations, trauma, unintentional weight loss, night sweats, productive cough, skin rash, or recent ill contacts. Prior admission on 09/28/15 reviewed. All listed medication reconciled at time of exam. ECG shows NSR with apparently new LBBB (not present on last ECG in office 09/2016). Echo done 09/2016 showed EF 50%, grade 1 diastolic dysfunction. Lexiscan MPI stress test 09/2015 which was negative, EF 50%. 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 Assessment/Plan Cecal Mass: s/p right hemicolectomy, omental bx, peritoneal bxs - 09/01, ADAT per GS, oncology following, fup path SBO secondary to Cecal Mass: adat per gs Possible Metastatic lesion to liver and omentum: MRI didn't show hepatic metast asis., mgt per oncolology Hyponatermia: resolved. Metabolic Acidosis: resolved with hydration Peritoneal irration/acute abdominal pain secondary to small bowel obstruction: Management as noted above Iron deficency anemia: As noted above patient follows with hematology oncology. Considering coronary consult hematology. Left bundle branch block: Echocardiogram; EF 50-55%, diastolic dysfunction. Hypokalemia: Repleted. DVT/GI prophy History Interval history: Review of systems Constitutional: No fevers, no malaise, no joint pains CVS: No chest pain, no orthopnea, no dyspnea on exertion, no pedal edema GI: No abdominal pain, no diarrhea, no vomiting, no constipation Respiratory: no wheezing, no coughing Hospitalist Physical - Physical exam Narrative exam: Not in cardiopulmonary distress. The patient appeared well nourished and normally developed. Vital signs as documented. Head exam is unremarkable. No scleral icterus . Neck is without jugular venous distension, thyromegaly, or carotid bruits. Lungs are clear to auscultation. Cardiac exam reveals regular rate and Rhythm. Abdominal clean dressing in the abdomen. Extremities are nonedematous and both femoral and pedal pulses are normal. ORCHID HAND: Alert and oriented 3. No focal weakness. - Constitutional Vitals: Temp Pulse Resp BP Pulse Ox 98.9 F 82 18 150/116 97 09/04/18 03:49 09/04/18 03:49 09/04/18 03:49 09/04/18 03:49 09/04/18 03:49 General appearance: Present: mild distress Results - Labs CBC & Chem 7: 09/04/18 05:50 09/05/18 06:30 Labs: Laboratory Last Values WBC 7.2 K/mm3 (4.5-11.0) 09/04/18 05:50 RBC 3.57 M/mm3 (3.65-5.03) L 09/04/18 05:50 Hgb 11.0 gm/dl (10.1-14.3) 09/04/18 05:50 Hct 31.8 % (30.3-42.9) 09/04/18 05:50 MCV 89 fl (79-97) 09/04/18 05:50 MCH 31 pg (28-32) 09/04/18 05:50 MCHC 35 % (30-34) H 09/04/18 05:50 RDW 16.6 % (13.2-15.2) H 09/04/18 05:50 Plt Count 121 K/mm3 (140-440) L 09/04/18 05:50 Lymph % (Auto) 3.5 % (13.4-35.0) L 09/02/18 03:44 [place] % (Auto) [employer] 09/04/18 05:50 Eos % (Auto) 0.0 % (0.0-4.3) 09/02/18 03:44 Baso % (Auto) 0.3 % (0.0-1.8) 09/02/18 03:44 Lymph # 0.6 K/mm3 (1.2-5.4) L 09/02/18 03:44 [place] # 2.0 K/mm3 (0.0-0.8) H 09/02/18 03:44 Eos # 0.0 K/mm3 (0.0-0.4) 09/02/18 03:44 Baso # 0.1 K/mm3 (0.0-0.1) 09/02/18 03:44 Add Manual Diff Complete 09/04/18 05:50 Total Counted 100 09/04/18 05:50 Seg Neutrophils % 85.3 % (40.0-70.0) H 09/02/18 03:44 Seg Neuts % (Manual) 79.0 % (40.0-70.0) H 09/04/18 05:50 0 % 09/04/18 05:50 3.0 % (13.4-35.0) L 09/04/18 05:50 Reactive Lymphs % (Man) 0 % 09/04/18 05:50 17.0 % (0.0-7.3) H 09/04/18 05:50 1.0 % (0.0-4.3) 09/04/18 05:50 0 % (0.0-1.8) 09/04/18 05:50 0 % 09/04/18 05:50 0 % 09/04/18 05:50 0 % 09/04/18 05:50 0 % 09/04/18 05:50 Nucleated RBC % Not Reportable 09/04/18 05:50 Seg Neutrophils # 15.4 K/mm3 (1.8-7.7) H 09/02/18 03:44 Seg Neutrophils # Man 5.7 K/mm3 (1.8-7.7) 09/04/18 05:50 Band Neutrophils # 0.0 K/mm3 09/04/18 05:50 0.2 K/mm3 (1.2-5.4) L 09/04/18 05:50 Abs React Lymphs (Man) 0.0 K/mm3 09/04/18 05:50 1.2 K/mm3 (0.0-0.8) H 09/04/18 05:50 0.1 K/mm3 (0.0-0.4) 09/04/18 05:50 0.0 K/mm3 (0.0-0.1) 09/04/18 05:50 0.0 K/mm3 09/04/18 05:50 0.0 K/mm3 09/04/18 05:50 0.0 K/mm3 09/04/18 05:50 Blast Cells # 0.0 K/mm3 09/04/18 05:50 WBC Morphology Not Reportable 09/04/18 05:50 WBC Morphology TNR 09/04/18 05:50 Hypersegmented Neuts Not Reportable 09/04/18 05:50 Hyposegmented Neuts Not Reportable 09/04/18 05:50 Hypogranular Neuts Not Reportable 09/04/18 05:50 Not Reportable 09/04/18 05:50 Not Reportable 09/04/18 05:50 Not Reportable 09/04/18 05:50 Not Reportable 09/04/18 05:50 Not Reportable 09/04/18 05:50 Not Reportable 09/04/18 05:50 Consistent w auto 09/04/18 05:50 Not Reportable 09/04/18 05:50 Plt Clumps, EDTA Not Reportable 09/04/18 05:50 Not Reportable 09/04/18 05:50 Not Reportable 09/04/18 05:50 Not Reportable 09/04/18 05:50 Plt Morphology Comment Not Reportable 09/04/18 05:50 RBC Morphology Normal 09/04/18 05:50 Dimorphic RBCs Not Reportable 09/04/18 05:50 Not Reportable 09/04/18 05:50 Not Reportable 09/04/18 05:50 Not Reportable 09/04/18 05:50 Not Reportable 09/04/18 05:50 Not Reportable 09/04/18 05:50 Not Reportable 09/04/18 05:50 Not Reportable 09/04/18 05:50 Not Reportable 09/04/18 05:50 Not Reportable 09/04/18 05:50 Not Reportable 09/04/18 05:50 Not Reportable 09/04/18 05:50 Not Reportable 09/04/18 05:50 Not Reportable 09/04/18 05:50 Not Reportable 09/04/18 05:50 Not Reportable 09/04/18 05:50 Not Reportable 09/04/18 05:50 Not Reportable 09/04/18 05:50 Not Reportable 09/04/18 05:50 Not Reportable 09/04/18 05:50 Acanthocytes (Spur) Not Reportable 09/04/18 05:50 Rouleaux Not Reportable 09/04/18 05:50 Not Reportable 09/04/18 05:50 Not Reportable 09/04/18 05:50 Not Reportable 09/04/18 05:50 Not Reportable 09/04/18 05:50 Hem Pathologist Commnt No 09/04/18 05:50 Sodium 135 mmol/L (137-145) L 09/04/18 05:50 Potassium 4.0 mmol/L (3.6-5.0) 09/04/18 05:50 Chloride 99.6 mmol/L (98-107) 09/04/18 05:50 Carbon Dioxide 25 mmol/L (22-30) 09/04/18 05:50 14 mmol/L 09/04/18 05:50 BUN 18 mg/dL (7-17) H 09/04/18 05:50 0.3 mg/dL (0.7-1.2) L 09/04/18 05:50 Estimated GFR > 60 ml/min 09/04/18 05:50 60 % 09/04/18 05:50 Glucose 102 mg/dL (65-100) H 09/04/18 05:50 POC Glucose 110 (70-105) H 09/04/18 11:43 Calcium 7.2 mg/dL (8.4-10.2) L 09/04/18 05:50 Phosphorus 2.50 mg/dL (2.5-4.5) 09/04/18 05:50 Magnesium 2.20 mg/dL (1.7-2.3) 09/04/18 05:50 Iron 31 ug/dL (37-170) L 09/01/18 05:35 TIBC 115 mcg/dL (250-450) L 09/01/18 05:35 401.1 ng/mL (13.0-400.0) H 09/01/18 05:35 0.30 mg/dL (0.1-1.2) 08/29/18 05:55 AST 9 units/L (5-40) 08/29/18 05:55 ALT 6 units/L (7-56) L 08/29/18 05:55 67 units/L (35-129) 08/29/18 05:55 40 units/L (30-135) 08/28/18 12:41 CK-MB (CK-2) 2.3 ng/mL (0.0-4.0) 08/28/18 12:41 CK-MB (CK-2) Rel Index 5.7 (0-4) H 08/28/18 12:41 < 0.010 ng/mL (0.00-0.029) 09/02/18 09:38 4.9 g/dL (6.3-8.2) L 08/29/18 05:55 2.8 g/dL (3.9-5) L 08/29/18 05:55 1.3 % 08/29/18 05:55 Triglycerides 75 mg/dL (2-149) 09/02/18 03:44 15 units/L (13-60) 08/28/18 12:41 Carcinoembryonic Ag 5.2 ng/mL (0.0-2.4) H 08/28/18 15:49 Vitamin B12 > 2000 pg/mL (211-911) H 09/01/18 05:35 5.75 ng/mL (7.3-26.0) L 09/01/18 05:35 TSH 7.070 mlU/mL (0.270-4.200) H 09/02/18 03:44 Free T4 1.29 ng/dL (0.76-1.46) 09/02/18 03:44 6.4 ug/dL (4.0-12.0) 09/02/18 03:44 Dior (Yellow) 09/02/18 Unknown Hazy (Clear) 09/02/18 Unknown 5.0 (5.0-7.0) 09/02/18 Unknown Ur Specific [place]etz 1.023 (1.003-1.030) 09/02/18 Unknown 30 mg/dl mg/dL (Negative) 09/02/18 Unknown Neg mg/dL (Negative) 09/02/18 Unknown Neg mg/dL (Negative) 09/02/18 Unknown Neg (Negative) 09/02/18 Unknown Neg (Negative) 09/02/18 Unknown Neg (Negative) 09/02/18 Unknown < 2.0 mg/dL (<2.0) 09/02/18 Unknown Ur Leukocyte Esterase Tr (Negative) 09/02/18 Unknown 20.0 /HPF (0.0-6.0) H 09/02/18 Unknown 7.0 /HPF (0.0-6.0) 09/02/18 Unknown U Epithel Cells (Auto) 1.0 /HPF (0-13.0) 09/02/18 Unknown 1+ /HPF (Negative) 08/28/18 Unknown Hyaline Casts 3 /LPF 09/02/18 Unknown 3+ /HPF 09/02/18 Unknown Blood Type O POSITIVE 09/01/18 05:35 Antibody Screen Negative 09/01/18 05:35 Active Medications - Current Medications Current Medications: Generic Name Dose Route Start Last Admin Trade Name Freq PRN Reason Stop Dose Admin Acetaminophen 650 mg 08/28/18 16:24 08/29/18 21:45 Tylenol PO 650 mg Q4H PRN Administration Pain MILD(1-3)/Fever >100.5/[place] Enoxaparin Sodium 30 mg 09/02/18 10:00 09/04/18 12:30 Lovenox SUB-Q 30 mg QDAY RAJ Administration Hydralazine HCl 10 mg 09/01/18 09:00 09/03/18 00:42 Apresoline IV 10 mg Q4H PRN Administration Hypertension Amino Acids/Electrolytes/Dextrose 1,800 mls @ 75 mls/hr 09/03/18 20:00 09/03/18 21:32 Tpn Adult IV 09/04/18 19:59 75 mls/hr DAILY@1999 RAJ Administration Protocol Amino Acids/Electrolytes/Dextrose 1,800 mls @ 75 mls/hr 09/04/18 20:00 Tpn Adult IV 09/05/18 19:59 DAILY@1999 [facility] Protocol Ketorolac Tromethamine 15 mg 09/04/18 12:48 Toradol IV 09/09/18 12:47 Q6H PRN Pain, Moderate (4-6) Ondansetron HCl 4 mg 08/28/18 16:24 09/04/18 09:59 Zofran IV 4 mg Q8H PRN Administration Nausea And Vomiting Pantoprazole Sodium 40 mg 08/28/18 18:00 09/04/18 12:30 Protonix IV 40 mg DAILY RAJ Administration Sodium Chloride 10 ml 08/28/18 22:00 09/04/18 12:32 Sodium Chloride Flush Syringe 10 Ml IV 10 ml BID RAJ Administration Sodium Chloride 10 ml 08/28/18 16:24 Sodium Chloride Flush Syringe 10 Ml IV PRN PRN LINE FLUSH Nutrition/Malnutrition Assess - Dietary Evaluation Nutrition/Malnutrition Findings: Nutrition Notes Start: 08/29/18 15:31 Freq: Status: Active Protocol: Document 09/04/18 10:23 LP (Rec: 09/04/18 10:28 LP [id number]) Nutrition Notes Initial or Follow up Reassessment Current Diagnosis Hypertension Other Pertinent Diagnosis S/P hemicolectomy,abdominal wound Current Diet CPN at 75ml/hr Labs/Tests Na 135 Phos 2.5 Pertinent Medications Reviewed Height 5 ft 2 in Weight 60 kg [place] Body Weight (kg) 50.00 BMI 24.2 Subjective/Other Information CPN day 5. Pt states not tolerating clear liquids due to abdominal pain. Percent of energy/protein needs met: 62%/100% Burn Absent Trauma Absent #1 Nutrition Diagnosis Malnutrition Diagnosis Progress(for reassessment Continues documentation) Is patient on ventilator? No Is Patient Ambulatory and/or Out of Bed Yes REE-([facility]-ambulatory/OOB) [ 1278.225 [id number]] Calculation Used for Recommendations [facility] Additional Notes Protein Needs: 71-89g (1.2-1. 5g/kg) Fluid Needs: 1 ml/kcal Nutrition Intervention Change Diet Order: CPN and CL diet Nutrition Support: CPN at 75ml/hr: 11.1% dextrose , 4.4% amino acid, 171mEq [id number] phos, MVI Osmolarity: 1301 Kcal 1,000 Protein (gm) 80 Carbohydrates (gm) 200 Fat (gm) 0 Fluid (mL) 1,800 Fiber (gm) 0 Goal #1 CPN and CL diet to meet kcal and protein needs as best as possible Anticipated Discharge Needs: Unable to determine at this time Follow-Up By: 09/05/18 Additional Comments Labs in AM: BMP, Mg, Phos, TG
--- NOTE | 2018-09-04 17:15 | Progress Note ---
Assessment and Plan Patient is stable from a cardiac standpoint. No additional episodes of arrhythmia noted on telemetry review. She is stable for transfer to post- surgical unit. Patient has been seen in conjunction with Dr. Decker, who agrees with assessment and plan. - Patient Problems (1) AV block Current Visit: Yes Status: Acute (2) Acute abdominal pain Current Visit: Yes Status: Acute (3) Cecum mass Current Visit: Yes Status: Acute (4) Nausea and vomiting Current Visit: Yes Status: Acute (5) Sinus bradycardia Current Visit: Yes Status: Acute (6) LBBB (left bundle branch block) Current Visit: Yes Status: Chronic (7) Elevated TSH Current Visit: Yes Status: Acute (8) Hypokalemia Current Visit: Yes Status: Acute (9) HTN (hypertension) Current Visit: Yes Status: Chronic (10) Dilated cardiomyopathy Current Visit: Yes Status: Acute Subjective Date of service: 09/04/18 Principal diagnosis: colon mass Interval history: Patient lying in bed in NAD. NGT in place. Family at bedside. Per son, she attempted to consume clear liquids today, but was unable tolerate the oral intake. SR in the 70s on telemetry. Objective Last Vital Signs Temp 98.9 F 09/04/18 03:49 Pulse 82 09/04/18 03:49 Resp 18 09/04/18 03:49 BP 150/116 09/04/18 03:49 Pulse Ox 97 09/04/18 03:49 - Physical Examination General: No Apparent Distress HEENT: Positive: PERRL, Normocephaly, Mucus Membranes Moist Neck: Positive: neck supple, trachea midline Cardiac: Positive: Reg Rate and Rhythm Lungs: Positive: clear to auscultation Neuro: Positive: Grossly Intact, Resting Tremor Abdomen: Positive: Soft, Other (distended) /Rectal: Other (Deferred) Skin: Positive: Clear. Negative: Rash Musculoskeletal: No Pain, other (Generalized weakness) Gait: Other (Unable to assess) Extremities: Present: +1 Edema (BL UE and LE) - Labs and Meds CBC 09/04/18 Range/Units 05:50 WBC 7.2 (4.5-11.0) K/mm3 RBC 3.57 L (3.65-5.03) M/mm3 Hgb 11.0 (10.1-14.3) gm/dl Hct 31.8 (30.3-42.9) % Plt Count 121 L (140-440) K/mm3 Comprehensive Metabolic Panel 09/04/18 Range/Units 05:50 Sodium 135 L (137-145) mmol/L Potassium 4.0 (3.6-5.0) mmol/L Chloride 99.6 (98-107) mmol/L Carbon Dioxide 25 (22-30) mmol/L BUN 18 H (7-17) mg/dL Creatinine 0.3 L (0.7-1.2) mg/dL Glucose 102 H (65-100) mg/dL Calcium 7.2 L (8.4-10.2) mg/dL - Imaging and Cardiology EKG: report reviewed, image reviewed Echo: report reviewed (08/2018: EF 50-55%, impaired relaxation, mild AR. 09/2016 showed EF 50%, grade 1 diastolic dysfunction. ) - Telemetry EKG Rhythm: Sinus Rhythm (with LBBB) - EKG Sinus rhythms and dysrhythmias: sinus rhythm AV and intraventricular conduction: left bundle branch block
[2018-09-04] MEDS ORDERED: TPN ADULT 1,800 ML IV SCH (20:00)
[2018-09-04] MEDS: REGLAN IV SCH (21:04)
[2018-09-05] MEDS: REGLAN IV SCH ×4 (03:24→20:46)
[2018-09-05 08:01] LABS: BUN/Creatinine Ratio 53; Blood Urea Nitrogen 16 mg/dL (7-17); Calcium 7.3 mg/dL (8.4-10.2); Hemolysis Index 3
--- NOTE | 2018-09-05 08:11 | Hem/Onc Progress Note ---
Assessment and Plan 1. Cecal mass. 2. Small-bowel obstruction. 3. Lymphadenopathy in abdomen 4. History of anemia, needing transfusion and she has been followed with Dr. Mayes for IV iron. 5. History of renal cyst. 6. History of liver cyst. 7. In the liver, radiology mentions cyst versus neoplasm. PLAN: 1. We will await path 2. CEA 5. 3. Liver lesions mets versus cyst. MRI suggests cyst 4. h/o Nausea, abdominal pain secondary to tumor issues. I will follow the patient during inpatient stay. We will wait for the patholog y. Once the patient is d/c she will follow up with Dr. Mayes on an outpatient basis. 09/05 h/o Low plt CEA 5 sx done pt had a question reg the proof of cancer - will await path - she will follow dr mayes - at [facility] pt last colonoscopy > 5 yrs ago last IRON 2017 d/w dr ricardo pt off ngt low folate and iron - oral replacement for now - Patient Problems (1) Cecum mass Current Visit: Yes Status: Acute Subjective Date of service: 09/05/18 Objective - Exam Narrative Exam: Pain none General appearance no acute distress Performance status - limited selfcare Eyes EOM intact ENT hearing intact/ Clear oral mucosa LNs cervical not palpable Neck normal ROM Respiratory Normal CTA - b/l CVS S1 S2 + Extremities normal temperature General GI Soft non tender s/p sx Rectal deferred Female - deferred Skin warm Musculoskeletal generalized weakness/ strength equal bilaterally Neurologically Focal deficit/ moves all extremities - Constitutional Vitals: Last Vital Signs Temp 98.8 F 09/05/18 04:31 Pulse 69 09/05/18 04:31 Resp 18 09/05/18 04:31 BP 150/60 09/05/18 04:31 Pulse Ox 96 09/05/18 04:31 - Labs Lab Results: Laboratory Results - last 24 hr 09/04/18 09/04/18 09/04/18 05:50 11:43 18:21 Add Manual Diff Complete Total Counted 100 Seg Neuts % (Manual) 79.0 H Band Neutrophils % 0 Lymphocytes % (Manual) 3.0 L Reactive Lymphs % (Man) 0 Monocytes % (Manual) 17.0 H Eosinophils % (Manual) 1.0 Basophils % (Manual) 0 Metamyelocytes % 0 Myelocytes % 0 Promyelocytes % 0 Blast Cells % 0 Nucleated RBC % Not Reportable Seg Neutrophils # Man 5.7 Band Neutrophils # 0.0 Lymphocytes # (Manual) 0.2 L Abs React Lymphs (Man) 0.0 Monocytes # (Manual) 1.2 H Eosinophils # (Manual) 0.1 Basophils # (Manual) 0.0 Metamyelocytes # 0.0 Myelocytes # 0.0 Promyelocytes # 0.0 Blast Cells # 0.0 WBC Morphology Not Reportable Hypersegmented Neuts Not Reportable Hyposegmented Neuts Not Reportable Hypogranular Neuts Not Reportable Smudge Cells Not Reportable Toxic Granulation Not Reportable Toxic Vacuolation Not Reportable Dohle Bodies Not Reportable Pelger-Huet Anomaly Not Reportable Dalton Rods Not Reportable Platelet Estimate Consistent w auto Clumped Platelets Not Reportable Plt Clumps, EDTA Not Reportable Large Platelets Not Reportable Giant Platelets Not Reportable Platelet Satelliting Not Reportable Plt Morphology Comment Not Reportable RBC Morphology Normal Dimorphic RBCs Not Reportable Polychromasia Not Reportable Hypochromasia Not Reportable Poikilocytosis Not Reportable Anisocytosis Not Reportable Microcytosis Not Reportable Macrocytosis Not Reportable Spherocytes Not Reportable Pappenheimer Bodies Not Reportable Sickle Cells Not Reportable Target Cells Not Reportable Tear Drop Cells Not Reportable Ovalocytes Not Reportable Helmet Cells Not Reportable [place] Bodies Not Reportable [place] Rings Not Reportable [place] Cells Not Reportable Bite Cells Not Reportable Crenated Cell Not Reportable Elliptocytes Not Reportable Acanthocytes (Spur) Not Reportable Rouleaux Not Reportable Hemoglobin C Crystals Not Reportable Schistocytes Not Reportable Malaria parasites Not Reportable Braulio Bodies Not Reportable Hem Pathologist Commnt No Sodium Potassium Chloride Carbon Dioxide Anion Gap BUN Creatinine Estimated GFR BUN/Creatinine Ratio Glucose POC Glucose 110 H 126 H Calcium Phosphorus Magnesium 09/05/18 09/05/18 09/05/18 00:17 06:15 06:30 Add Manual Diff Total Counted Seg Neuts % (Manual) Band Neutrophils % Lymphocytes % (Manual) Reactive Lymphs % (Man) Monocytes % (Manual) Eosinophils % (Manual) Basophils % (Manual) Metamyelocytes % Myelocytes % Promyelocytes % Blast Cells % Nucleated RBC % Seg Neutrophils # Man Band Neutrophils # Lymphocytes # (Manual) Abs React Lymphs (Man) Monocytes # (Manual) Eosinophils # (Manual) Basophils # (Manual) Metamyelocytes # Myelocytes # Promyelocytes # Blast Cells # WBC Morphology Hypersegmented Neuts Hyposegmented Neuts Hypogranular Neuts Smudge Cells Toxic Granulation Toxic Vacuolation Dohle Bodies Pelger-Huet Anomaly Dalton Rods Platelet Estimate Clumped Platelets Plt Clumps, EDTA Large Platelets Giant Platelets Platelet Satelliting Plt Morphology Comment RBC Morphology Dimorphic RBCs Polychromasia Hypochromasia Poikilocytosis Anisocytosis Microcytosis Macrocytosis Spherocytes Pappenheimer Bodies Sickle Cells Target Cells Tear Drop Cells Ovalocytes Helmet Cells [place] Bodies [place] Rings [place] Cells Bite Cells Crenated Cell Elliptocytes Acanthocytes (Spur) Rouleaux Hemoglobin C Crystals Schistocytes Malaria parasites Braulio Bodies Hem Pathologist Commnt Sodium 134 L Potassium 4.3 Chloride 99.0 Carbon Dioxide 25 Anion Gap 14 BUN 16 Creatinine 0.3 L Estimated GFR > 60 BUN/Creatinine Ratio 53 Glucose 97 POC Glucose 112 H 99 Calcium 7.3 L Phosphorus 2.80 Magnesium 2.10 Medications & Allergies - Medications Allergies/Adverse Reactions: Allergies acetaminophen [From Ninitet-N 100] Allergy (Verified 08/28/18 11:05) Unknown aspirin Allergy (Verified 08/28/18 11:05) Unknown codeine Allergy (Verified 08/28/18 11:05) Unknown propoxyphene napsylate [From Ninitet-N 100] Allergy (Verified 08/28/18 11:05) Unknown Home Medications: Home Medications Medication Instructions Recorded Confirmed Last Taken Type Propranolol HCl 60 mg PO QDAY 09/28/15 08/29/18 08/26/18 22:00 History ALPRAZolam [Xanax TAB] 0.25 mg PO BID PRN #10 tab 10/01/15 08/30/18 Unknown Rx Active Medications: Generic Name Dose Route Start Last Admin Trade Name Freq PRN Reason Stop Dose Admin Acetaminophen 650 mg 08/28/18 16:24 08/29/18 21:45 Tylenol PO 650 mg Q4H PRN Administration Pain MILD(1-3)/Fever >100.5/[place] Enoxaparin Sodium 30 mg 09/02/18 10:00 09/04/18 12:30 Lovenox SUB-Q 30 mg QDAY RAJ Administration Hydralazine HCl 10 mg 09/01/18 09:00 09/03/18 00:42 Apresoline IV 10 mg Q4H PRN Administration Hypertension Amino Acids/Electrolytes/Dextrose 1,800 mls @ 75 mls/hr 09/04/18 20:00 09/04/18 21:02 Tpn Adult IV 09/05/18 19:59 75 mls/hr DAILY@2000 RAJ Administration Protocol Ketorolac Tromethamine 15 mg 09/04/18 12:48 Toradol IV 09/09/18 12:47 Q6H PRN Pain, Moderate (4-6) Metoclopramide HCl 10 mg 09/04/18 20:00 09/05/18 03:24 Reglan IV 09/07/18 19:59 10 mg Q6H RAJ Administration Ondansetron HCl 4 mg 08/28/18 16:24 09/04/18 09:59 Zofran IV 4 mg Q8H PRN Administration Nausea And Vomiting Pantoprazole Sodium 40 mg 08/28/18 18:00 09/04/18 12:30 Protonix IV 40 mg DAILY RAJ Administration Sodium Chloride 10 ml 08/28/18 22:00 09/04/18 21:09 Sodium Chloride Flush Syringe 10 Ml IV 10 ml BID RAJ Administration Sodium Chloride 10 ml 08/28/18 16:24 Sodium Chloride Flush Syringe 10 Ml IV PRN PRN LINE FLUSH
--- NOTE | 2018-09-05 09:15 | Progress Note ---
Assessment and Plan - Patient Problems (1) Cecum mass Current Visit: Yes Status: Acute Plan to address problem: s/p right hemicolectomy, omental bx, peritoneal bxs - 09/01 - POD#4. Appears stable. Plan: 1) continue clears for comfort. 2) remove NGT today as bowel function has resumed, even though some distention remains. I think the tube is causing her more discomfort than it is helping her. She agrees to have it replaced if she becomes symptomatic. 3) OOB to chair. Will benefit from PT 4) TPN until diet advanced. 5) Use tylenol and prn toradol for pain Please call with questions. Subjective Date of service: 09/05/18 Patient Reports: Positive: no new complaints, feels better, pain is less, tolerating liquids well, flatus, bowel movement Objective Vital Signs - 12hr 09/05/18 09/05/18 09/05/18 00:09 00:13 00:36 Temperature 98.5 F Pulse Rate 86 Respiratory 18 Rate Blood Pressure 149/70 O2 Sat by Pulse 96 96 Oximetry 09/05/18 09/05/18 00:44 04:31 Temperature 98.8 F Pulse Rate 73 69 Respiratory 18 Rate Blood Pressure 150/60 O2 Sat by Pulse 96 Oximetry - General physical appearance no distress, no pain, other (looks better) - Respiratory normal expansion, normal respiratory effort - Abdomen soft, tender (minimal), bowel sounds hypoactive, distended (mild), not guarding, not rigid, surgical scars (C/D/I) - Integumentary no rash, no growths, no abnormal pigmentation - Psychiatric oriented to time, oriented to person, oriented to place, speech is normal, memory intact - Labs 09/04/18 05:50 09/05/18 06:30 Diabetes panel 09/05/18 Range/Units 06:30 Sodium 134 L (137-145) mmol/L Potassium 4.3 (3.6-5.0) mmol/L Chloride 99.0 (98-107) mmol/L Carbon Dioxide 25 (22-30) mmol/L BUN 16 (7-17) mg/dL Creatinine 0.3 L (0.7-1.2) mg/dL Glucose 97 (65-100) mg/dL Calcium 7.3 L (8.4-10.2) mg/dL Calcium panel 09/05/18 Range/Units 06:30 Calcium 7.3 L (8.4-10.2) mg/dL Phosphorus 2.80 (2.5-4.5) mg/dL Pituitary panel 09/05/18 Range/Units 06:30 Sodium 134 L (137-145) mmol/L Potassium 4.3 (3.6-5.0) mmol/L Chloride 99.0 (98-107) mmol/L Carbon Dioxide 25 (22-30) mmol/L BUN 16 (7-17) mg/dL Creatinine 0.3 L (0.7-1.2) mg/dL Glucose 97 (65-100) mg/dL Calcium 7.3 L (8.4-10.2) mg/dL Adrenal panel 09/05/18 Range/Units 06:30 Sodium 134 L (137-145) mmol/L Potassium 4.3 (3.6-5.0) mmol/L Chloride 99.0 (98-107) mmol/L Carbon Dioxide 25 (22-30) mmol/L BUN 16 (7-17) mg/dL Creatinine 0.3 L (0.7-1.2) mg/dL Glucose 97 (65-100) mg/dL Calcium 7.3 L (8.4-10.2) mg/dL
[2018-09-05] MEDS: PROTONIX IV SCH (11:27)
[2018-09-05] MEDS: LOVENOX SUB-Q SCH (11:27)
--- NOTE | 2018-09-05 11:28 | Progress Note ---
Assessment and Plan S/p right hemicolectomy with primary anastomosis on 09/01/18. NGT d/c'd, TPN infusing. currently in SR with LBBB, no acute events noted over the weekend. Cont to hold AV jojo blocking agents. Currently stable cardiac status. Nothing further to add from cardiac perspective at this time. Will sign off. Recommend pt follow up in our office with Dr. Kim within 1-2 weeks of hospital discharge ([phone]). The patient has been seen in conjunction with Dr. Spencer who agrees with the assessment and plan of care. - Patient Problems (1) Acute abdominal pain Current Visit: Yes Status: Acute (2) Nausea and vomiting Current Visit: Yes Status: Acute (3) Cecum mass Current Visit: Yes Status: Acute (4) Small bowel obstruction Current Visit: Yes Status: Acute (5) HTN (hypertension) Current Visit: Yes Status: Chronic (6) LBBB (left bundle branch block) Current Visit: Yes Status: Chronic (7) Hypokalemia Current Visit: Yes Status: Acute (8) Sinus bradycardia Current Visit: Yes Status: Acute (9) AV block Current Visit: Yes Status: Acute (10) Elevated TSH Current Visit: Yes Status: Acute Subjective Date of service: 09/05/18 Principal diagnosis: colon mass Interval history: pt resting in bed, no current cardiac complaints, NGT d/c'd, TPN infusing. currently in SR with LBBB, no acute events noted overnight. Objective Last Vital Signs Temp 98.8 F 09/05/18 04:31 Pulse 69 09/05/18 04:31 Resp 18 09/05/18 04:31 BP 150/60 09/05/18 04:31 Pulse Ox 96 09/05/18 04:31 - Physical Examination General: No Apparent Distress HEENT: Positive: PERRL, Normocephaly, Mucus Membranes Moist Neck: Positive: neck supple, trachea midline Cardiac: Positive: Reg Rate and Rhythm, S1/S2 Lungs: Positive: Decreased Breath Sounds Neuro: Positive: Grossly Intact, Resting Tremor Abdomen: Positive: Soft, Other (distended) /Rectal: Other (Deferred) Skin: Positive: Clear. Negative: Rash Musculoskeletal: No Pain, other (Generalized weakness) Gait: Other (Unable to assess) Extremities: Present: +1 Edema (BL UE and LE) - Labs and Meds Comprehensive Metabolic Panel 09/05/18 Range/Units 06:30 Sodium 134 L (137-145) mmol/L Potassium 4.3 (3.6-5.0) mmol/L Chloride 99.0 (98-107) mmol/L Carbon Dioxide 25 (22-30) mmol/L BUN 16 (7-17) mg/dL Creatinine 0.3 L (0.7-1.2) mg/dL Glucose 97 (65-100) mg/dL Calcium 7.3 L (8.4-10.2) mg/dL - Imaging and Cardiology EKG: report reviewed, image reviewed Echo: report reviewed (08/2018: EF 50-55%, impaired relaxation, mild AR. 09/2016 showed EF 50%, grade 1 diastolic dysfunction. ) - EKG Sinus rhythms and dysrhythmias: sinus rhythm AV and intraventricular conduction: left bundle branch block
[2018-09-05] MEDS: TORADOL IV PRN (12:27)
[2018-09-05] MEDS: SODIUM CHLORIDE FLUSH SYRINGE 10 ML IV SCH ×2 (12:27→21:01)
--- NOTE | 2018-09-05 14:18 | Progress Note ---
Assessment and Plan Assessment and plan: 88 YO Female with HTN, Anemia requiring blood transfusion presents to ED for evaluation. Pt states that has experienced nausea and multiple episodes of vomiting and abdominal pain over the past 1 week. Pt states that her pain is 3- 5/10, constant, diffuse, without exacerbating, or alleviating factors. Pt transported to [facility] via private vehicle. 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 complicated by PSBO on CT of abdomen/pelvis. Pt admitted to E[facility] unit. Pt seen and evaluated by surgical team in ED. Pt denies fever, chills, chest pain, palpitations, trauma, unintentional weight loss, night sweats, productive cough, skin rash, or recent ill contacts. Prior admission on 09/28/15 reviewed. All listed medication reconciled at time of exam. ECG shows NSR with apparently new LBBB (not present on last ECG in office 09/2016). Echo done 09/2016 showed EF 50%, grade 1 diastolic dysfunction. Lexiscan MPI stress test 09/2015 which was negative, EF 50%. CT A/P IMPRESSION: 1. 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 Biopsy was taken. Patient will follow with her Oncologist MRI showed cecal mass and mesenteric lymphadenopathy. 2. Several enlarged pericecal lymph nodes concerning for neoplastic involvement. Stranding and nodularity of the left omentum could represent omental carcinomatosis. 3. Several simple hepatic cysts. Several additional low-attenuation hepatic lesions which are too small to characterize but may represent small cysts or metastatic lesions. MRI showed cysts, no liver metastases. 4. Small volume of scattered ascites. 5. Several nonspecific low-attenuation renal lesions which are higher in attenuation than simple cysts and may represent proteinaceous or hemorrhagic cysts versus solid renal neoplasms. Total oral intake; patient is on TPN. Assessment/Plan Cecal Mass: Surgery follow, GI evaluated and signed off. 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 Possible Metastatic lesion to liver and omentum: MRI didn't show hepatic metastasis. Hyponatermia: resolved. Metabolic Acidosis: Anticipate correction with hydration Nausea and Vomiting: Continue NGT, zofran PRN Patient is on TPN. Peritoneal irration/acute abdominal pain secondary to small bowel obstruction: Management as noted above Iron deficency anemia: As noted above patient follows with hematology oncology. Considering coronary consult hematology. Left bundle branch block: Echocardiogram; EF 50-55%, diastolic dysfunction. Hypokalemia: Repleted. DVT/GI prophy History Interval history: Review of systems Constitutional: No fevers, no malaise, no joint pains CVS: No chest pain, no orthopnea, no dyspnea on exertion, no pedal edema GI: No abdominal pain, no diarrhea, no vomiting, no constipation Respiratory: no wheezing, no coughing Hospitalist Physical - Physical exam Narrative exam: Not in cardiopulmonary distress. The patient appeared well nourished and normally developed. Vital signs as documented. Head exam is unremarkable. No scleral icterus . Neck is without jugular venous distension, thyromegaly, or carotid bruits. Lungs are clear to auscultation. Cardiac exam reveals regular rate and Rhythm. Abdominal clean dressing in the abdomen. Extremities are nonedematous and both femoral and pedal pulses are normal. SOIL CHECKER: Alert and oriented 3. No focal weakness. - Constitutional Vitals: Temp Pulse Resp BP Pulse Ox 98.8 F 69 18 150/60 96 09/05/18 04:31 09/05/18 04:31 09/05/18 04:31 09/05/18 04:31 09/05/18 04:31 General appearance: Present: mild distress Results - Labs CBC & Chem 7: 09/04/18 05:50 09/05/18 06:30 Labs: Laboratory Last Values WBC 7.2 K/mm3 (4.5-11.0) 09/04/18 05:50 RBC 3.57 M/mm3 (3.65-5.03) L 09/04/18 05:50 Hgb 11.0 gm/dl (10.1-14.3) 09/04/18 05:50 Hct 31.8 % (30.3-42.9) 09/04/18 05:50 MCV 89 fl (79-97) 09/04/18 05:50 MCH 31 pg (28-32) 09/04/18 05:50 MCHC 35 % (30-34) H 09/04/18 05:50 RDW 16.6 % (13.2-15.2) H 09/04/18 05:50 Plt Count 121 K/mm3 (140-440) L 09/04/18 05:50 Lymph % (Auto) 3.5 % (13.4-35.0) L 09/02/18 03:44 [place] % (Auto) Circular Knife Machine Cutter 09/04/18 05:50 Eos % (Auto) 0.0 % (0.0-4.3) 09/02/18 03:44 Baso % (Auto) 0.3 % (0.0-1.8) 09/02/18 03:44 Lymph # 0.6 K/mm3 (1.2-5.4) L 09/02/18 03:44 [place] # 2.0 K/mm3 (0.0-0.8) H 09/02/18 03:44 Eos # 0.0 K/mm3 (0.0-0.4) 09/02/18 03:44 Baso # 0.1 K/mm3 (0.0-0.1) 09/02/18 03:44 Add Manual Diff Complete 09/04/18 05:50 Total Counted 100 09/04/18 05:50 Seg Neutrophils % 85.3 % (40.0-70.0) H 09/02/18 03:44 Seg Neuts % (Manual) 79.0 % (40.0-70.0) H 09/04/18 05:50 0 % 09/04/18 05:50 3.0 % (13.4-35.0) L 09/04/18 05:50 Reactive Lymphs % (Man) 0 % 09/04/18 05:50 17.0 % (0.0-7.3) H 09/04/18 05:50 1.0 % (0.0-4.3) 09/04/18 05:50 0 % (0.0-1.8) 09/04/18 05:50 0 % 09/04/18 05:50 0 % 09/04/18 05:50 0 % 09/04/18 05:50 0 % 09/04/18 05:50 Nucleated RBC % Not Reportable 09/04/18 05:50 Seg Neutrophils # 15.4 K/mm3 (1.8-7.7) H 09/02/18 03:44 Seg Neutrophils # Man 5.7 K/mm3 (1.8-7.7) 09/04/18 05:50 Band Neutrophils # 0.0 K/mm3 09/04/18 05:50 0.2 K/mm3 (1.2-5.4) L 09/04/18 05:50 Abs React Lymphs (Man) 0.0 K/mm3 09/04/18 05:50 1.2 K/mm3 (0.0-0.8) H 09/04/18 05:50 0.1 K/mm3 (0.0-0.4) 09/04/18 05:50 0.0 K/mm3 (0.0-0.1) 09/04/18 05:50 0.0 K/mm3 09/04/18 05:50 0.0 K/mm3 09/04/18 05:50 0.0 K/mm3 09/04/18 05:50 Blast Cells # 0.0 K/mm3 09/04/18 05:50 WBC Morphology Not Reportable 09/04/18 05:50 WBC Morphology TNR 09/04/18 05:50 Hypersegmented Neuts Not Reportable 09/04/18 05:50 Hyposegmented Neuts Not Reportable 09/04/18 05:50 Hypogranular Neuts Not Reportable 09/04/18 05:50 Not Reportable 09/04/18 05:50 Not Reportable 09/04/18 05:50 Not Reportable 09/04/18 05:50 Not Reportable 09/04/18 05:50 Not Reportable 09/04/18 05:50 Not Reportable 09/04/18 05:50 Consistent w auto 09/04/18 05:50 Not Reportable 09/04/18 05:50 Plt Clumps, EDTA Not Reportable 09/04/18 05:50 Not Reportable 09/04/18 05:50 Not Reportable 09/04/18 05:50 Not Reportable 09/04/18 05:50 Plt Morphology Comment Not Reportable 09/04/18 05:50 RBC Morphology Normal 09/04/18 05:50 Dimorphic RBCs Not Reportable 09/04/18 05:50 Not Reportable 09/04/18 05:50 Not Reportable 09/04/18 05:50 Not Reportable 09/04/18 05:50 Not Reportable 09/04/18 05:50 Not Reportable 09/04/18 05:50 Not Reportable 09/04/18 05:50 Not Reportable 09/04/18 05:50 Not Reportable 09/04/18 05:50 Not Reportable 09/04/18 05:50 Not Reportable 09/04/18 05:50 Not Reportable 09/04/18 05:50 Not Reportable 09/04/18 05:50 Not Reportable 09/04/18 05:50 Not Reportable 09/04/18 05:50 Not Reportable 09/04/18 05:50 Not Reportable 09/04/18 05:50 Not Reportable 09/04/18 05:50 Not Reportable 09/04/18 05:50 Not Reportable 09/04/18 05:50 Acanthocytes (Spur) Not Reportable 09/04/18 05:50 Rouleaux Not Reportable 09/04/18 05:50 Not Reportable 09/04/18 05:50 Not Reportable 09/04/18 05:50 Not Reportable 09/04/18 05:50 Not Reportable 09/04/18 05:50 Hem Pathologist Commnt No 09/04/18 05:50 Sodium 134 mmol/L (137-145) L 09/05/18 06:30 Potassium 4.3 mmol/L (3.6-5.0) 09/05/18 06:30 Chloride 99.0 mmol/L (98-107) 09/05/18 06:30 Carbon Dioxide 25 mmol/L (22-30) 09/05/18 06:30 14 mmol/L 09/05/18 06:30 BUN 16 mg/dL (7-17) 09/05/18 06:30 0.3 mg/dL (0.7-1.2) L 09/05/18 06:30 Estimated GFR > 60 ml/min 09/05/18 06:30 53 % 09/05/18 06:30 Glucose 97 mg/dL (65-100) 09/05/18 06:30 POC Glucose 107 (70-105) H 09/05/18 13:40 Calcium 7.3 mg/dL (8.4-10.2) L 09/05/18 06:30 Phosphorus 2.80 mg/dL (2.5-4.5) 09/05/18 06:30 Magnesium 2.10 mg/dL (1.7-2.3) 09/05/18 06:30 Iron 31 ug/dL (37-170) L 09/01/18 05:35 TIBC 115 mcg/dL (250-450) L 09/01/18 05:35 401.1 ng/mL (13.0-400.0) H 09/01/18 05:35 0.30 mg/dL (0.1-1.2) 08/29/18 05:55 AST 9 units/L (5-40) 08/29/18 05:55 ALT 6 units/L (7-56) L 08/29/18 05:55 67 units/L (35-129) 08/29/18 05:55 40 units/L (30-135) 08/28/18 12:41 CK-MB (CK-2) 2.3 ng/mL (0.0-4.0) 08/28/18 12:41 CK-MB (CK-2) Rel Index 5.7 (0-4) H 08/28/18 12:41 < 0.010 ng/mL (0.00-0.029) 09/02/18 09:38 4.9 g/dL (6.3-8.2) L 08/29/18 05:55 2.8 g/dL (3.9-5) L 08/29/18 05:55 1.3 % 08/29/18 05:55 Triglycerides 75 mg/dL (2-149) 09/02/18 03:44 15 units/L (13-60) 08/28/18 12:41 Carcinoembryonic Ag 5.2 ng/mL (0.0-2.4) H 08/28/18 15:49 Vitamin B12 > 2000 pg/mL (211-911) H 09/01/18 05:35 5.75 ng/mL (7.3-26.0) L 09/01/18 05:35 TSH 7.070 mlU/mL (0.270-4.200) H 09/02/18 03:44 Free T4 1.29 ng/dL (0.76-1.46) 09/02/18 03:44 6.4 ug/dL (4.0-12.0) 09/02/18 03:44 Dior (Yellow) 09/02/18 Unknown Hazy (Clear) 09/02/18 Unknown 5.0 (5.0-7.0) 09/02/18 Unknown Ur Specific [place] 1.023 (1.003-1.030) 09/02/18 Unknown 30 mg/dl mg/dL (Negative) 09/02/18 Unknown Neg mg/dL (Negative) 09/02/18 Unknown Neg mg/dL (Negative) 09/02/18 Unknown Neg (Negative) 09/02/18 Unknown Neg (Negative) 09/02/18 Unknown Neg (Negative) 09/02/18 Unknown < 2.0 mg/dL (<2.0) 09/02/18 Unknown Ur Leukocyte Esterase Tr (Negative) 09/02/18 Unknown 20.0 /HPF (0.0-6.0) H 09/02/18 Unknown 7.0 /HPF (0.0-6.0) 09/02/18 Unknown U Epithel Cells (Auto) 1.0 /HPF (0-13.0) 09/02/18 Unknown 1+ /HPF (Negative) 08/28/18 Unknown Hyaline Casts 3 /LPF 09/02/18 Unknown 3+ /HPF 09/02/18 Unknown Blood Type O POSITIVE 09/01/18 05:35 Antibody Screen Negative 09/01/18 05:35 Active Medications - Current Medications Current Medications: Generic Name Dose Route Start Last Admin Trade Name Freq PRN Reason Stop Dose Admin Acetaminophen 650 mg 08/28/18 16:24 08/29/18 21:45 Tylenol PO 650 mg Q4H PRN Administration Pain MILD(1-3)/Fever >100.5/[place] Enoxaparin Sodium 30 mg 09/02/18 10:00 09/05/18 11:27 Lovenox SUB-Q 30 mg QDAY RAJ Administration Hydralazine HCl 10 mg 09/01/18 09:00 09/03/18 00:42 Apresoline IV 10 mg Q4H PRN Administration Hypertension Amino Acids/Electrolytes/Dextrose 1,800 mls @ 75 mls/hr 09/04/18 20:00 09/04/18 21:02 Tpn Adult IV 09/05/18 19:59 75 mls/hr DAILY@2000 RAJ Administration Protocol Amino Acids/Electrolytes/Dextrose 1,800 mls @ 75 mls/hr 09/05/18 20:00 Tpn Adult IV 09/06/18 19:59 DAILY@1999 [facility] Protocol Ketorolac Tromethamine 15 mg 09/04/18 12:48 09/05/18 12:27 Toradol IV 09/09/18 12:47 15 mg Q6H PRN Administration Pain, Moderate (4-6) Metoclopramide HCl 10 mg 09/04/18 20:00 09/05/18 09:27 Reglan IV 09/07/18 19:59 10 mg Q6H RAJ Administration Ondansetron HCl 4 mg 08/28/18 16:24 09/04/18 09:59 Zofran IV 4 mg Q8H PRN Administration Nausea And Vomiting Pantoprazole Sodium 40 mg 08/28/18 18:00 09/05/18 11:27 Protonix IV 40 mg DAILY RAJ Administration Sodium Chloride 10 ml 08/28/18 22:00 09/05/18 12:27 Sodium Chloride Flush Syringe 10 Ml IV 10 ml BID RAJ Administration Sodium Chloride 10 ml 08/28/18 16:24 Sodium Chloride Flush Syringe 10 Ml IV PRN PRN LINE FLUSH Nutrition/Malnutrition Assess - Dietary Evaluation Nutrition/Malnutrition Findings: Nutrition Notes Start: 08/29/18 15:31 Freq: Status: Active Protocol: Document 09/05/18 13:59 DENISE (Rec: 09/05/18 14:04 DENISE [email or web address] [email or web address]) Nutrition Notes Initial or Follow up Reassessment Other Pertinent Diagnosis S/P hemicolectomy,abdominal wound Current Diet Cl liq+ CPN at 75ml/hr Labs/Tests Na 134 Pertinent Medications Reglan q6h Height 5 ft 2 in Weight 69 kg [place] Body Weight (kg) 50.00 BMI 27.8 Weight change and time frame Current wt obtained from bed scale Subjective/Other Information Day 6 CPN. Pt tolerating cl liq diet, but c/o motion sickness at time of visit (12: 56). Percent of energy/protein needs met: 84% energy 96% pro Burn Absent Trauma Absent #1 Nutrition Diagnosis Malnutrition Diagnosis Progress(for reassessment Continues documentation) Is patient on ventilator? No Is Patient Ambulatory and/or Out of Bed Yes REE-([place]-St. Jeor-ambulatory/OOB) [ 1395.225 [id number]] Calculation Used for Recommendations [place]-St Jeor Additional Notes Pro needs 1.2-1.5g/k-104g /day Fluid needs 1ml/kcal Nutrition Intervention Change Diet Order: Continue cl liq diet Nutrition Support: Continue CPN at 75ml/hr: MVI, 13.9% dextrose, 200mEq Na. Osmolality: 1472. Kcal 1,170 Protein (gm) 80 Carbohydrates (gm) 250 Fat (gm) 0 Fluid (mL) 1,800 Fiber (gm) 0 Goal #1 CPN and cl liq diet to meet energy and pro needs as best possible Follow-Up By: 09/06/18 Additional Comments Labs in am: CMP, Mg, Phos
--- NOTE | 2018-09-05 19:16 | Event Note ---
Date: 09/05/18 I went to check on the patient since we removed her NG tube today. She reports that she can breathe better now. She continues to have liquid bowel movements. She has not noticed any increased nausea or distention. She has been having trouble with motion sickness today.
[2018-09-05] MEDS ORDERED: TPN ADULT 1,800 ML IV SCH (20:00)
[2018-09-05] MEDS: ANTIVERT PO PRN (22:41)
[2018-09-06] MEDS: REGLAN IV SCH ×4 (02:47→21:11)
[2018-09-06 07:17] LABS: Alanine Aminotransferase 25 units/L (7-56); Albumin 2.3 g/dL (3.9-5); BUN/Creatinine Ratio 47; Blood Urea Nitrogen 14 mg/dL (7-17); Calcium 7.5 mg/dL (8.4-10.2); Hemolysis Index 5
--- NOTE | 2018-09-06 08:06 | Hem/Onc Progress Note ---
Assessment and Plan 1. Cecal mass. 2. Small-bowel obstruction. 3. Lymphadenopathy in abdomen 4. History of anemia, needing transfusion and she has been followed with Dr. Crews for IV iron. 5. History of renal cyst. 6. History of liver cyst. 7. In the liver, radiology mentions cyst versus neoplasm. PLAN: 1. We will await path 2. CEA 5. 3. Liver lesions mets versus cyst. MRI suggests cyst 4. h/o Nausea, abdominal pain secondary to tumor issues. I will follow the patient during inpatient stay. We will wait for the patholog y. Once the patient is d/c she will follow up with Dr. Crews on an outpatient basis. 09/06 h/o Low plt CEA 5 sx done pt had a question reg the proof of cancer - will await path - she will follow dr crews - at [place] pt last colonoscopy > 5 yrs ago last IRON 2017 low folate and iron - oral replacement for now - Patient Problems (1) Cecum mass Current Visit: Yes Status: Acute Subjective Date of service: 09/06/18 Principal diagnosis: colon mass Interval history: no bleeding Objective - Exam Narrative Exam: Pain none General appearance no acute distress Performance status - limited selfcare Eyes EOM intact ENT hearing intact/ Clear oral mucosa LNs cervical not palpable Neck normal ROM Respiratory Normal CTA - b/l CVS S1 S2 + Extremities normal temperature General GI Soft non tender s/p sx Rectal deferred Female - deferred Skin warm Musculoskeletal generalized weakness/ strength equal bilaterally Neurologically Focal deficit/ moves all extremities - Constitutional Vitals: Last Vital Signs Temp 97.4 F L 09/06/18 05:17 Pulse 76 09/06/18 05:17 Resp 18 09/06/18 05:17 BP 172/73 09/06/18 05:17 Pulse Ox 96 09/06/18 05:17 - Labs Lab Results: Laboratory Results - last 24 hr 09/05/18 09/05/18 09/06/18 13:40 18:26 00:43 Sodium Potassium Chloride Carbon Dioxide Anion Gap BUN Creatinine Estimated GFR BUN/Creatinine Ratio Glucose POC Glucose 107 H 113 H 115 H Calcium Phosphorus Magnesium Total Bilirubin AST ALT Alkaline Phosphatase Total Protein Albumin Albumin/Globulin Ratio 09/06/18 09/06/18 06:00 07:03 Sodium 135 L Potassium 4.4 Chloride 100.0 Carbon Dioxide 27 Anion Gap 12 BUN 14 Creatinine 0.3 L Estimated GFR > 60 BUN/Creatinine Ratio 47 Glucose 93 POC Glucose 118 H Calcium 7.5 L Phosphorus 3.30 Magnesium 2.20 Total Bilirubin 0.20 AST 26 ALT 25 Alkaline Phosphatase 64 Total Protein 4.2 L Albumin 2.3 L Albumin/Globulin Ratio 1.2 Medications & Allergies - Medications Allergies/Adverse Reactions: Allergies acetaminophen [From Houzzt-N 100] Allergy (Verified 08/28/18 11:05) Unknown aspirin Allergy (Verified 08/28/18 11:05) Unknown codeine Allergy (Verified 08/28/18 11:05) Unknown propoxyphene napsylate [From OpSourcecet-N 100] Allergy (Verified 08/28/18 11:05) Unknown Home Medications: Home Medications Medication Instructions Recorded Confirmed Last Taken Type Propranolol HCl 60 mg PO QDAY 09/28/15 08/29/18 08/26/18 22:00 History ALPRAZolam [Xanax TAB] 0.25 mg PO BID PRN #10 tab 10/01/15 08/30/18 Unknown Rx Active Medications: Generic Name Dose Route Start Last Admin Trade Name Freq PRN Reason Stop Dose Admin Acetaminophen 650 mg 08/28/18 16:24 08/29/18 21:45 Tylenol PO 650 mg Q4H PRN Administration Pain MILD(1-3)/Fever >100.5/[place] Enoxaparin Sodium 30 mg 09/02/18 10:00 09/05/18 11:27 Lovenox SUB-Q 30 mg QDAY RAJ Administration Ferrous Sulfate 325 mg 09/06/18 10:00 Feosol PO QDAY [facility] Folic Acid 1 mg 09/06/18 10:00 Folvite PO QDAY [facility] Hydralazine HCl 10 mg 09/01/18 09:00 09/03/18 00:42 Apresoline IV 10 mg Q4H PRN Administration Hypertension Amino Acids/Electrolytes/Dextrose 1,800 mls @ 75 mls/hr 09/05/18 20:00 09/05/18 20:51 Tpn Adult IV 09/06/18 19:59 75 mls/hr DAILY@2000 RAJ Administration Protocol Ketorolac Tromethamine 15 mg 09/04/18 12:48 09/05/18 12:27 Toradol IV 09/09/18 12:47 15 mg Q6H PRN Administration Pain, Moderate (4-6) Meclizine HCl 25 mg 09/05/18 16:07 09/05/18 22:41 Antivert PO 25 mg Q8H PRN Administration Vertigo Metoclopramide HCl 10 mg 09/04/18 20:00 09/06/18 02:47 Reglan IV 09/07/18 19:59 10 mg Q6H RAJ Administration Ondansetron HCl 4 mg 08/28/18 16:24 09/04/18 09:59 Zofran IV 4 mg Q8H PRN Administration Nausea And Vomiting Pantoprazole Sodium 40 mg 08/28/18 18:00 09/05/18 11:27 Protonix IV 40 mg DAILY RAJ Administration Sodium Chloride 10 ml 08/28/18 22:00 09/05/18 21:01 Sodium Chloride Flush Syringe 10 Ml IV 10 ml BID RAJ Administration Sodium Chloride 10 ml 08/28/18 16:24 Sodium Chloride Flush Syringe 10 Ml IV PRN PRN LINE FLUSH
[2018-09-06] MEDS: LOVENOX SUB-Q SCH (09:40)
[2018-09-06] MEDS: FOLVITE PO SCH (09:40)
[2018-09-06] MEDS: FEOSOL PO SCH (09:40)
[2018-09-06] MEDS: PROTONIX IV SCH (09:41)
[2018-09-06] MEDS: SODIUM CHLORIDE FLUSH SYRINGE 10 ML IV SCH ×2 (09:42→21:11)
[2018-09-06] MEDS: APRESOLINE IV PRN (09:57)
[2018-09-06] MEDS: TORADOL IV PRN (12:54)
--- NOTE | 2018-09-06 14:21 | Progress Note ---
Assessment and Plan Cecal Mass: -s/p right hemicolectomy, omental bx, peritoneal bxs - 09/01, postoperative care per GS, oncology following, follow-up biopsy results SBO secondary to Cecal Mass: Resolved following surgery -Patient currently on TPN - Plan to start on full liquid diet today Possible Metastatic lesion to liver and omentum: MRI didn't show hepatic metastasis., mgt per oncolology Hyponatermia: resolved. Metabolic Acidosis: resolved with hydration Peritoneal irration/acute abdominal pain secondary to small bowel obstruction: Management as noted above Iron deficency anemia: As noted above patient follows with hematology oncology. Considering coronary consult hematology. Left bundle branch block: Echocardiogram; EF 50-55%, diastolic dysfunction. Hypokalemia: Repleted. DVT/GI prophy Brief History: 88 YO Female with HTN, Anemia requiring blood transfusion presents to ED for evaluation. Pt states that has experienced nausea and multiple episodes of vomiting and abdominal pain over the past 1 week. Pt transported to [facility] via private vehicle. Pt seen and evaluated in ED and found to have a Cecal mass/ suspected neoplasm, complicated by PSBO on CT of abdomen/pelvis. Pt admitted to [facility] unit. Pt seen and evaluated by surgical team in ED. she underwent right hemicolectomy with Betadine and an omental biopsy on 09/01. Postoperative care to being managed by surgery team, patient placed on TPN and also started on diet. Plan to continue TPN until she can consume an of by mouth diet. Radiological data: CT A/P IMPRESSION: 1. 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 Biopsy was taken. Patient will follow with her Oncologist MRI showed cecal mass and mesenteric lymphadenopathy. 2. Several enlarged pericecal lymph nodes concerning for neoplastic involvement. Stranding and nodularity of the left omentum could represent omental carcinomatosis. 3. Several simple hepatic cysts. Several additional low-attenuation hepatic lesions which are too small to characterize but may represent small cysts or metastatic lesions. MRI showed cysts, no liver metastases. 4. Small volume of scattered ascites. 5. Several nonspecific low-attenuation renal lesions which are higher in attenuation than simple cysts and may represent proteinaceous or hemorrhagic cysts versus solid renal neoplasms. Hospitalist Physical exam: GENERAL: well-developed and well-nourished lying on bed appeared to be in no discomfort. HEENT: Normocephalic. Atraumatic. No conjunctival congestion or icterus. Patient has moist mucous membranes. NECK: Supple. Trachea midline. CHEST/LUNGS: Clear to auscultated bilaterally, breathing nonlabored. No wheezes crackles or rhonchi. HEART/CARDIOVASCULAR: Regular in rate and rhythm. S1 and S2 positive. ABDOMEN: Abdomen is soft, nontender. Patient has normal bowel sounds. SKIN: There is no rash. Warm and dry. NEURO: No focal motor deficit. Follows command. MUSCULOSKELETAL: No joint effusion EXTRIMITY: No edema, no cyanosis or clubbing. Right BKA PSYCH: Cooperative. Subjective Date of service: 09/06/18 Principal diagnosis: colon mass Interval history: Patient seen and examined. Medical records and medication list reviewed. No acute event overnight noted by the RN. Patient resting on bed, Discussed plan of care at bedside with patient. Objective - Constitutional Vitals: Vital Signs - 12hr 09/06/18 09/06/18 09/06/18 05:17 09:49 09:57 Temperature 97.4 F L 98.5 F Pulse Rate 76 77 77 Respiratory 18 18 Rate Blood Pressure 172/73 175/72 175/72 O2 Sat by Pulse 96 94 Oximetry - Labs CBC & Chem 7: 09/04/18 05:50 09/08/18 06:40 Labs: Abnormal lab results 09/05/18 09/06/18 09/06/18 Range/Units 18:26 00:43 06:00 Sodium 135 L (137-145) mmol/L Creatinine 0.3 L (0.7-1.2) mg/dL POC Glucose 113 H 115 H (70-105) Calcium 7.5 L (8.4-10.2) mg/dL Total Protein 4.2 L (6.3-8.2) g/dL Albumin 2.3 L (3.9-5) g/dL 09/06/18 Range/Units 07:03 Sodium (137-145) mmol/L Creatinine (0.7-1.2) mg/dL POC Glucose 118 H (70-105) Calcium (8.4-10.2) mg/dL Total Protein (6.3-8.2) g/dL Albumin (3.9-5) g/dL
--- NOTE | 2018-09-06 14:35 | Progress Note ---
Assessment and Plan (1) Cecum mass Current Visit: Yes Status: Acute Plan to address problem: s/p right hemicolectomy, omental bx, peritoneal bxs - 09/01 - POD#5. Appears stable. Plan: 1) adv to full liquid diet today 2) prn pain control - tylenol and toradol 3) OOB to chair. Physical therapy consulted 4) TPN until diet advanced. 5) DVT ppx Plan d/w patient's daughter in law at bedside. D/W Dr. Ho. Thank you, please call with questions. Subjective Date of service: 09/06/18 Narrative: Pt seen and examined. Feeling weak today. Tolerating clear liquids. Feels much better without NGT. Minimal abdominal pain. Having BMs. No f/c. Objective Vital Signs - 12hr 09/06/18 09/06/18 09/06/18 05:17 09:49 09:57 Temperature 97.4 F L 98.5 F Pulse Rate 76 77 77 Respiratory 18 18 Rate Blood Pressure 172/73 175/72 175/72 O2 Sat by Pulse 96 94 Oximetry - General physical appearance Narrative Exam: Gen: Awake and alert. NAD CV: s1, S2+ Resp; even and unlabored Abd: soft, ND, minimal incisional TTP. Incision c/d/i. Ext: no c/c/e - Labs 09/04/18 05:50 09/06/18 06:00 Diabetes panel 09/06/18 Range/Units 06:00 Sodium 135 L (137-145) mmol/L Potassium 4.4 (3.6-5.0) mmol/L Chloride 100.0 (98-107) mmol/L Carbon Dioxide 27 (22-30) mmol/L BUN 14 (7-17) mg/dL Creatinine 0.3 L (0.7-1.2) mg/dL Glucose 93 (65-100) mg/dL Calcium 7.5 L (8.4-10.2) mg/dL AST 26 (5-40) units/L ALT 25 (7-56) units/L Alkaline Phosphatase 64 (35-129) units/L Total Protein 4.2 L (6.3-8.2) g/dL Albumin 2.3 L (3.9-5) g/dL Calcium panel 09/06/18 Range/Units 06:00 Calcium 7.5 L (8.4-10.2) mg/dL Phosphorus 3.30 (2.5-4.5) mg/dL Albumin 2.3 L (3.9-5) g/dL Pituitary panel 09/06/18 Range/Units 06:00 Sodium 135 L (137-145) mmol/L Potassium 4.4 (3.6-5.0) mmol/L Chloride 100.0 (98-107) mmol/L Carbon Dioxide 27 (22-30) mmol/L BUN 14 (7-17) mg/dL Creatinine 0.3 L (0.7-1.2) mg/dL Glucose 93 (65-100) mg/dL Calcium 7.5 L (8.4-10.2) mg/dL Adrenal panel 09/06/18 Range/Units 06:00 Sodium 135 L (137-145) mmol/L Potassium 4.4 (3.6-5.0) mmol/L Chloride 100.0 (98-107) mmol/L Carbon Dioxide 27 (22-30) mmol/L BUN 14 (7-17) mg/dL Creatinine 0.3 L (0.7-1.2) mg/dL Glucose 93 (65-100) mg/dL Calcium 7.5 L (8.4-10.2) mg/dL Total Bilirubin 0.20 (0.1-1.2) mg/dL AST 26 (5-40) units/L ALT 25 (7-56) units/L Alkaline Phosphatase 64 (35-129) units/L Total Protein 4.2 L (6.3-8.2) g/dL Albumin 2.3 L (3.9-5) g/dL
[2018-09-06] MEDS ORDERED: TPN ADULT 1,800 ML IV SCH (20:00)
[2018-09-07] MEDS: REGLAN IV SCH ×3 (04:38→14:05)
[2018-09-07 05:40] LABS: BUN/Creatinine Ratio 45; Blood Urea Nitrogen 18 mg/dL (7-17); Calcium 7.5 mg/dL (8.4-10.2); Hemolysis Index 2
[2018-09-07] MEDS: LOVENOX SUB-Q SCH (09:23)
[2018-09-07] MEDS: FOLVITE PO SCH (09:23)
[2018-09-07] MEDS: FEOSOL PO SCH (09:23)
[2018-09-07] MEDS: PROTONIX IV SCH (09:24)
[2018-09-07] MEDS: SODIUM CHLORIDE FLUSH SYRINGE 10 ML IV SCH (09:30)
--- NOTE | 2018-09-07 15:23 | Progress Note ---
Assessment and Plan (1) Cecum mass Current Visit: Yes Status: Acute Plan to address problem: s/p right hemicolectomy, omental bx, peritoneal bxs - 09/01 - POD#6. Appears stable. Plan: 1) adv to soft diet for dinner 2) prn pain control - tylenol and toradol 3) OOB to chair. Physical therapy initiated 4) TPN may be discontinued if patient tolerating a soft diet for few days 5) DVT ppx Thank you, please call with questions. Subjective Date of service: 09/07/18 Narrative: Pt seen and examined. Feels better today but tired due to physical therapy. No f/c, n/v. Tolerating diet with minimal appetite. Objective Vital Signs - 12hr 09/07/18 09/07/18 09/07/18 03:55 04:54 04:55 Temperature 97.9 F Pulse Rate 83 78 Respiratory 18 Rate Blood Pressure 137/63 Blood Pressure [Right] O2 Sat by Pulse 96 95 95 Oximetry 09/07/18 09/07/18 06:54 12:00 Temperature 97.6 F 98 F Pulse Rate 77 83 Respiratory 20 20 Rate Blood Pressure 150/56 Blood Pressure 146/62 [Right] O2 Sat by Pulse 95 95 Oximetry - General physical appearance Narrative Exam: Gen: Awake and alert. NAD CV: s1, S2+ resp; even and unlabored Abd: soft, NT, ND. incision c/d/i Ext: no c/c/e - Labs 09/04/18 05:50 09/07/18 05:00 Diabetes panel 09/07/18 Range/Units 05:00 Sodium 134 L (137-145) mmol/L Potassium 4.5 (3.6-5.0) mmol/L Chloride 99.2 (98-107) mmol/L Carbon Dioxide 27 (22-30) mmol/L BUN 18 H (7-17) mg/dL Creatinine 0.4 L (0.7-1.2) mg/dL Glucose 85 (65-100) mg/dL Calcium 7.5 L (8.4-10.2) mg/dL Calcium panel 09/07/18 Range/Units 05:00 Calcium 7.5 L (8.4-10.2) mg/dL Phosphorus 3.20 (2.5-4.5) mg/dL Pituitary panel 09/07/18 Range/Units 05:00 Sodium 134 L (137-145) mmol/L Potassium 4.5 (3.6-5.0) mmol/L Chloride 99.2 (98-107) mmol/L Carbon Dioxide 27 (22-30) mmol/L BUN 18 H (7-17) mg/dL Creatinine 0.4 L (0.7-1.2) mg/dL Glucose 85 (65-100) mg/dL Calcium 7.5 L (8.4-10.2) mg/dL Adrenal panel 09/07/18 Range/Units 05:00 Sodium 134 L (137-145) mmol/L Potassium 4.5 (3.6-5.0) mmol/L Chloride 99.2 (98-107) mmol/L Carbon Dioxide 27 (22-30) mmol/L BUN 18 H (7-17) mg/dL Creatinine 0.4 L (0.7-1.2) mg/dL Glucose 85 (65-100) mg/dL Calcium 7.5 L (8.4-10.2) mg/dL
--- NOTE | 2018-09-07 15:25 | Progress Note ---
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 Metabolic Acidosis: resolved with hydration Peritoneal irration/acute abdominal pain secondary to small bowel obstruction: Management as noted above Iron deficency anemia: As noted above patient follows with hematology oncology. Considering coronary consult hematology. Left bundle branch block: Echocardiogram; EF 50-55%, diastolic dysfunction. Hypokalemia: Repleted. DVT/GI prophy Disposition: will need placement to SNF Brief History: 88 YO Female with HTN, Anemia requiring blood transfusion presents to ED for evaluation. Pt states that has experienced nausea and multiple episodes of vomiting and abdominal pain over the past 1 week. Pt transported to [facility] via private vehicle. 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 Pt admi tted to [facility] unit. Pt seen and evaluated by surgical team in ED. she underwent right hemicolectomy with Betadine and an omental biopsy on 09/01. Postoperative care to being managed by surgery team, patient placed on TPN and also started on diet. Plan to continue TPN until she can consume an of by mouth diet. Radiological data: CT A/P IMPRESSION: 1. 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 Biopsy was taken. Patient will follow with her Oncologist MRI showed cecal mass and mesenteric lymphadenopathy. 2. Several enlarged pericecal lymph nodes concerning for neoplastic involvement. Stranding and nodularity of the left omentum could represent omental carcinomatosis. 3. Several simple hepatic cysts. Several additional low-attenuation hepatic lesions which are too small to characterize but may represent small cysts or metastatic lesions. MRI showed cysts, no liver metastases. 4. Small volume of scattered ascites. 5. Several nonspecific low-attenuation renal lesions which are higher in attenuation than simple cysts and may represent proteinaceous or hemorrhagic cysts versus solid renal neoplasms. Hospitalist Physical exam: GENERAL: well-developed and well-nourished lying on bed appeared to be in no discomfort. HEENT: Normocephalic. Atraumatic. No conjunctival congestion or icterus. Patient has moist mucous membranes. NECK: Supple. Trachea midline. CHEST/LUNGS: Clear to auscultated bilaterally, breathing nonlabored. No wheezes crackles or rhonchi. HEART/CARDIOVASCULAR: Regular in rate and rhythm. S1 and S2 positive. ABDOMEN: Abdomen is soft, surgical dressing on place. Patient has normal bowel sounds. SKIN: There is no rash. Warm and dry. NEURO: No focal motor deficit. Follows command. MUSCULOSKELETAL: No joint effusion EXTRIMITY: No edema, no cyanosis or clubbing. PSYCH: Cooperative. Subjective Date of service: 09/07/18 Principal diagnosis: colon mass Interval history: Patient seen and examined. Medical records and medication list reviewed. No acute event overnight noted by the RN. Patient resting on bed, no acute event o/n Discussed plan of care at bedside with patient. Objective - Constitutional Vitals: Vital Signs - 12hr 09/07/18 09/07/18 09/07/18 03:55 04:54 04:55 Temperature 97.9 F Pulse Rate 83 78 Respiratory 18 Rate Blood Pressure 137/63 Blood Pressure [Right] O2 Sat by Pulse 96 95 95 Oximetry 09/07/18 09/07/18 06:54 12:00 Temperature 97.6 F 98 F Pulse Rate 77 83 Respiratory 20 20 Rate Blood Pressure 150/56 Blood Pressure 146/62 [Right] O2 Sat by Pulse 95 95 Oximetry - Labs CBC & Chem 7: 09/04/18 05:50 09/08/18 06:40 Labs: Abnormal lab results 09/06/18 09/07/18 09/07/18 Range/Units 17:16 05:00 07:08 Sodium 134 L (137-145) mmol/L BUN 18 H (7-17) mg/dL Creatinine 0.4 L (0.7-1.2) mg/dL POC Glucose 123 H 112 H (70-105) Calcium 7.5 L (8.4-10.2) mg/dL 09/07/18 Range/Units 11:11 Sodium (137-145) mmol/L BUN (7-17) mg/dL Creatinine (0.7-1.2) mg/dL POC Glucose 117 H (70-105) Calcium (8.4-10.2) mg/dL
[2018-09-07] MEDS ORDERED: TPN ADULT 1,800 ML IV SCH (20:00)
[2018-09-08 07:32] LABS: BUN/Creatinine Ratio 47; Blood Urea Nitrogen 14 mg/dL (7-17); Calcium 7.3 mg/dL (8.4-10.2); Hemolysis Index 2
--- NOTE | 2018-09-08 07:49 | Hem/Onc Progress Note ---
Assessment and Plan 1. Cecal mass. 2. Small-bowel obstruction. 3. Lymphadenopathy in abdomen 4. History of anemia, needing transfusion and she has been followed with Dr. Crews for IV iron. 5. History of renal cyst. 6. History of liver cyst. 7. In the liver, radiology mentions cyst versus neoplasm. PLAN: 1. We will await path 2. CEA 5. 3. Liver lesions mets versus cyst. MRI suggests cyst 4. h/o Nausea, abdominal pain secondary to tumor issues. I will follow the patient during inpatient stay. We will wait for the patholog y. Once the patient is d/c she will follow up with Dr. Crews on an outpatient basis. 09/07 h/o Low plt CEA 5 sx done pt had a question reg the proof of cancer - will await path - she will follow dr crews - at [place] pt last colonoscopy > 5 yrs ago last IRON 2017 low folate and iron - oral replacement for now path still pending copies of CT given to pt - Patient Problems (1) Cecum mass Current Visit: Yes Status: Acute Subjective Date of service: 09/07/18 Principal diagnosis: colon mass Interval history: more awake - eating - had BM Objective - Exam Narrative Exam: Pain none General appearance no acute distress Performance status - limited selfcare Eyes EOM intact ENT hearing intact/ Clear oral mucosa LNs cervical not palpable Neck normal ROM Respiratory Normal CTA - b/l CVS S1 S2 + Extremities normal temperature General GI Soft non tender s/p sx Rectal deferred Female - deferred Skin warm Musculoskeletal generalized weakness/ strength equal bilaterally Neurologically Focal deficit/ moves all extremities - Constitutional Vitals: Last Vital Signs Temp 97.7 F 09/08/18 04:13 Pulse 85 09/08/18 04:13 Resp 18 09/08/18 04:13 BP 155/62 09/08/18 04:13 Pulse Ox 96 09/08/18 04:13 - Labs Lab Results: Laboratory Results - last 24 hr 09/07/18 09/07/18 09/08/18 11:11 18:19 00:05 Sodium Potassium Chloride Carbon Dioxide Anion Gap BUN Creatinine Estimated GFR BUN/Creatinine Ratio Glucose POC Glucose 117 H 134 H 120 H Calcium Phosphorus Magnesium 09/08/18 09/08/18 06:01 06:40 Sodium 134 L Potassium 4.1 Chloride 101.2 Carbon Dioxide 24 Anion Gap 13 BUN 14 Creatinine 0.3 L Estimated GFR > 60 BUN/Creatinine Ratio 47 Glucose 125 H POC Glucose 134 H Calcium 7.3 L Phosphorus 2.70 Magnesium 2.00 Medications & Allergies - Medications Allergies/Adverse Reactions: Allergies acetaminophen [From CNG-Onet-N 100] Allergy (Verified 08/28/18 11:05) Unknown aspirin Allergy (Verified 08/28/18 11:05) Unknown codeine Allergy (Verified 08/28/18 11:05) Unknown propoxyphene napsylate [From Parse-N 100] Allergy (Verified 08/28/18 11:05) Unknown Home Medications: Home Medications Medication Instructions Recorded Confirmed Last Taken Type Propranolol HCl 60 mg PO QDAY 09/28/15 08/29/18 08/26/18 22:00 History ALPRAZolam [Xanax TAB] 0.25 mg PO BID PRN #10 tab 10/01/15 08/30/18 Unknown Rx Active Medications: Generic Name Dose Route Start Last Admin Trade Name Freq PRN Reason Stop Dose Admin Acetaminophen 650 mg 08/28/18 16:24 08/29/18 21:45 Tylenol PO 650 mg Q4H PRN Administration Pain MILD(1-3)/Fever >100.5/[place]OD Enoxaparin Sodium 30 mg 09/02/18 10:00 09/07/18 09:23 Lovenox SUB-Q 30 mg QDAY RAJ Administration Ferrous Sulfate 325 mg 09/06/18 10:00 09/07/18 09:23 Feosol PO 325 mg QDAY RAJ Administration Folic Acid 1 mg 09/06/18 10:00 09/07/18 09:23 Folvite PO 1 mg QDAY RAJ Administration Hydralazine HCl 10 mg 09/01/18 09:00 09/06/18 09:57 Apresoline IV 10 mg Q4H PRN Administration Hypertension Amino Acids/Electrolytes/Dextrose 1,800 mls @ 75 mls/hr 09/07/18 20:00 09/07/18 20:16 Tpn Adult IV 09/08/18 19:59 75 mls/hr DAILY@2000 RAJ Administration Protocol Ketorolac Tromethamine 15 mg 09/04/18 12:48 09/06/18 12:54 Toradol IV 09/09/18 12:47 15 mg Q6H PRN Administration Pain, Moderate (4-6) Meclizine HCl 25 mg 09/05/18 16:07 09/05/18 22:41 Antivert PO 25 mg Q8H PRN Administration Vertigo Ondansetron HCl 4 mg 08/28/18 16:24 09/04/18 09:59 Zofran IV 4 mg Q8H PRN Administration Nausea And Vomiting Pantoprazole Sodium 40 mg 08/28/18 18:00 09/07/18 09:24 Protonix IV 40 mg DAILY RAJ Administration Sodium Chloride 10 ml 08/28/18 22:00 09/07/18 09:30 Sodium Chloride Flush Syringe 10 Ml IV 10 ml BID RAJ Administration Sodium Chloride 10 ml 08/28/18 16:24 Sodium Chloride Flush Syringe 10 Ml IV PRN PRN LINE FLUSH
--- NOTE | 2018-09-08 07:50 | Hem/Onc Progress Note ---
Assessment and Plan 1. Cecal mass. 2. Small-bowel obstruction. 3. Lymphadenopathy in abdomen 4. History of anemia, needing transfusion and she has been followed with Dr. Crews for IV iron. 5. History of renal cyst. 6. History of liver cyst. 7. In the liver, radiology mentions cyst versus neoplasm. PLAN: 1. We will await path 2. CEA 5. 3. Liver lesions mets versus cyst. MRI suggests cyst 4. h/o Nausea, abdominal pain secondary to tumor issues. I will follow the patient during inpatient stay. We will wait for the patholog y. Once the patient is d/c she will follow up with Dr. Crews on an outpatient basis. 09/08 h/o Low plt CEA 5 sx done pt had a question reg the proof of cancer - will await path - she will follow dr crews - at [place] pt last colonoscopy > 5 yrs ago last IRON 2017 low folate and iron - oral replacement for now path - colon ca - copy given to pt - ? genetic cause - adv OP follow up with dr crews copies of CT given to pt - Patient Problems (1) Cecum mass Status: Acute Subjective Date of service: 09/08/18 Principal diagnosis: colon ca Interval history: eating well Objective - Exam Narrative Exam: Pain none General appearance no acute distress Performance status - limited selfcare Eyes EOM intact ENT hearing intact/ Clear oral mucosa LNs cervical not palpable Neck normal ROM Respiratory Normal CTA - b/l CVS S1 S2 + Extremities normal temperature General GI Soft non tender s/p sx Rectal deferred Female - deferred Skin warm Musculoskeletal generalized weakness/ strength equal bilaterally Neurologically Focal deficit/ moves all extremities - Constitutional Vitals: Last Vital Signs Temp 97.7 F 09/08/18 04:13 Pulse 85 09/08/18 04:13 Resp 18 09/08/18 04:13 BP 155/62 09/08/18 04:13 Pulse Ox 96 09/08/18 04:13 - Labs Lab Results: Laboratory Results - last 24 hr 09/07/18 09/07/18 09/08/18 11:11 18:19 00:05 Sodium Potassium Chloride Carbon Dioxide Anion Gap BUN Creatinine Estimated GFR BUN/Creatinine Ratio Glucose POC Glucose 117 H 134 H 120 H Calcium Phosphorus Magnesium 09/08/18 09/08/18 06:01 06:40 Sodium 134 L Potassium 4.1 Chloride 101.2 Carbon Dioxide 24 Anion Gap 13 BUN 14 Creatinine 0.3 L Estimated GFR > 60 BUN/Creatinine Ratio 47 Glucose 125 H POC Glucose 134 H Calcium 7.3 L Phosphorus 2.70 Magnesium 2.00 Medications & Allergies - Medications Allergies/Adverse Reactions: Allergies acetaminophen [From PanXN 100] Allergy (Verified 08/28/18 11:05) Unknown aspirin Allergy (Verified 08/28/18 11:05) Unknown codeine Allergy (Verified 08/28/18 11:05) Unknown propoxyphene napsylate [From PanXSwipeClockN 100] Allergy (Verified 08/28/18 11:05) Unknown Home Medications: Home Medications Medication Instructions Recorded Confirmed Last Taken Type Ferrous Sulfate [Feosol 325 MG tab] 325 mg PO QDAY tablet 09/08/18 Unknown Rx Folic Acid [Folvite] 1 mg PO QDAY #30 tablet 09/08/18 Unknown Rx Ketorolac [Toradol] 10 mg PO Q6H PRN #10 tablet 09/08/18 Unknown Rx Meclizine [Antivert] 25 mg PO Q8H PRN #30 tablet 09/08/18 Unknown Rx Ondansetron (Nf) [Zofran TAB] 8 mg PO Q8HR PRN #10 tablet 09/08/18 Unknown Rx Pantoprazole [Protonix] 40 mg PO QDAY #30 tablet 09/08/18 Unknown Rx Active Medications: Generic Name Dose Route Start Last Admin Trade Name Freq PRN Reason Stop Dose Admin Acetaminophen 650 mg 08/28/18 16:24 08/29/18 21:45 Tylenol PO 650 mg Q4H PRN Administration Pain MILD(1-3)/Fever >100.5/[place] Enoxaparin Sodium 30 mg 09/02/18 10:00 09/07/18 09:23 Lovenox SUB-Q 30 mg QDAY RAJ Administration Ferrous Sulfate 325 mg 09/06/18 10:00 09/07/18 09:23 Feosol PO 325 mg QDAY RAJ Administration Folic Acid 1 mg 09/06/18 10:00 09/07/18 09:23 Folvite PO 1 mg QDAY RAJ Administration Hydralazine HCl 10 mg 09/01/18 09:00 09/06/18 09:57 Apresoline IV 10 mg Q4H PRN Administration Hypertension Amino Acids/Electrolytes/Dextrose 1,800 mls @ 75 mls/hr 09/07/18 20:00 09/07/18 20:16 Tpn Adult IV 09/08/18 19:59 75 mls/hr DAILY@2000 RAJ Administration Protocol Ketorolac Tromethamine 15 mg 09/04/18 12:48 09/06/18 12:54 Toradol IV 09/09/18 12:47 15 mg Q6H PRN Administration Pain, Moderate (4-6) Meclizine HCl 25 mg 09/05/18 16:07 09/05/18 22:41 Antivert PO 25 mg Q8H PRN Administration Vertigo Ondansetron HCl 4 mg 08/28/18 16:24 09/04/18 09:59 Zofran IV 4 mg Q8H PRN Administration Nausea And Vomiting Pantoprazole Sodium 40 mg 08/28/18 18:00 09/07/18 09:24 Protonix IV 40 mg DAILY RAJ Administration Sodium Chloride 10 ml 08/28/18 22:00 09/07/18 09:30 Sodium Chloride Flush Syringe 10 Ml IV 10 ml BID RAJ Administration Sodium Chloride 10 ml 08/28/18 16:24 Sodium Chloride Flush Syringe 10 Ml IV PRN PRN LINE FLUSH
[2018-09-08] MEDS: LOVENOX SUB-Q SCH (09:05)
[2018-09-08] MEDS: ZOFRAN IV PRN (09:05)
[2018-09-08] MEDS: PROTONIX IV SCH (09:05)
[2018-09-08] MEDS: FEOSOL PO SCH (09:05)
[2018-09-08] MEDS: ANTIVERT PO PRN (09:05)
[2018-09-08] MEDS: APRESOLINE IV PRN (09:05)
[2018-09-08] MEDS: SODIUM CHLORIDE FLUSH SYRINGE 10 ML IV SCH (09:06)
[2018-09-08] MEDS: FOLVITE PO SCH (09:06)
--- NOTE | 2018-09-08 12:49 | Progress Note ---
Assessment and Plan (1) Cecum mass Current Visit: Yes Status: Acute Plan to address problem: s/p right hemicolectomy, omental bx, peritoneal bxs - 09/01 - POD#7. Appears stable. Plan: 1) c/w soft diet 2) prn pain control - tylenol and toradol 3) OOB to chair. Physical therapy initiated 4) c/w TPN for now as patient is not taking in very much by mouth 5) DVT ppx 6) DC planning per 1' team Thank you, please call with questions. Subjective Date of service: 09/08/18 Narrative: Pt seen and examined. No acute complaints. Sleeping comfortably. Objective Vital Signs - 12hr 09/08/18 09/08/18 09/08/18 04:13 08:33 09:05 Temperature 97.7 F 98.2 F Pulse Rate 85 91 H Respiratory 18 20 Rate Blood Pressure 155/62 165/73 165/73 O2 Sat by Pulse 96 93 Oximetry 09/08/18 12:16 Temperature 98.5 F Pulse Rate 98 H Respiratory 20 Rate Blood Pressure 110/41 O2 Sat by Pulse 94 Oximetry - General physical appearance Narrative Exam: Gen: Arousable. Sleeping in bed CV: s1, S2+ resp; even and unlabored Abd: soft, NT, ND. incision c/d/i Ext: no c/c/e - Labs 09/04/18 05:50 09/08/18 06:40 Diabetes panel 09/08/18 Range/Units 06:40 Sodium 134 L (137-145) mmol/L Potassium 4.1 (3.6-5.0) mmol/L Chloride 101.2 (98-107) mmol/L Carbon Dioxide 24 (22-30) mmol/L BUN 14 (7-17) mg/dL Creatinine 0.3 L (0.7-1.2) mg/dL Glucose 125 H (65-100) mg/dL Calcium 7.3 L (8.4-10.2) mg/dL Calcium panel 09/08/18 Range/Units 06:40 Calcium 7.3 L (8.4-10.2) mg/dL Phosphorus 2.70 (2.5-4.5) mg/dL Pituitary panel 09/08/18 Range/Units 06:40 Sodium 134 L (137-145) mmol/L Potassium 4.1 (3.6-5.0) mmol/L Chloride 101.2 (98-107) mmol/L Carbon Dioxide 24 (22-30) mmol/L BUN 14 (7-17) mg/dL Creatinine 0.3 L (0.7-1.2) mg/dL Glucose 125 H (65-100) mg/dL Calcium 7.3 L (8.4-10.2) mg/dL Adrenal panel 09/08/18 Range/Units 06:40 Sodium 134 L (137-145) mmol/L Potassium 4.1 (3.6-5.0) mmol/L Chloride 101.2 (98-107) mmol/L Carbon Dioxide 24 (22-30) mmol/L BUN 14 (7-17) mg/dL Creatinine 0.3 L (0.7-1.2) mg/dL Glucose 125 H (65-100) mg/dL Calcium 7.3 L (8.4-10.2) mg/dL
--- NOTE | 2018-09-08 16:15 | Discharge Summary ---
Providers - Providers Date of Admission: 08/28/18 16:24 Date of discharge: 09/08/18 Attending physician: MARÍA BARKSDALE 08/28/18 15:34 Consult to Physician [CONS] Urgent Comment: DR TAMMY MCCOY W/DR GODWIN @[id number] Consulting Provider: ANDREEA GODWIN Physician Instructions: Reason For Exam: cecal mass, SBO 08/28/18 16:39 Consult to Physician [CONS] Routine Comment: Consulting Provider: GURVINDER MENENDEZ Physician Instructions: Reason For Exam: cecal mass Consult to Physician [CONS] Routine Comment: Consulting Provider: KELVIN DAVISON Physician Instructions: Reason For Exam: cecal mass with suspicious LN, ?liver mets 08/28/18 16:41 Consult to Physician [CONS] Routine Comment: Consulting Provider: LILLIAM VALLES Physician Instructions: Reason For Exam: preop risk assessment for abdominal surgery 08/31/18 13:12 Consult to Dietitian/Nutrition [CONS] Routine Physician Instructions: Reason For Exam: Reason for Consult: Write/Manage TPN/PPN 08/31/18 13:14 PICC Line Insertion [Consult to PICC Line RN] [CONS] Routine Reason For Exam: TPN Type Line:: PICC 09/02/18 03:21 Consult to Physician [CONS] Routine Comment: Consulting Provider: LASHA COKER Physician Instructions: Reason For Exam: [place], arrhythmia 09/05/18 13:38 Physical Therapy Evaluation and Treat [CONS] Routine Comment: Reason For Exam: weakness and hx of falls 09/05/18 13:41 Occupational Therapy Evaluate and Treat [CONS] Urgent Comment: Reason For Exam: weakness and hx of falls Primary care physician: ANA MOURA Hospitalization Condition: Fair Hospital course: 88 YO Female with HTN, Anemia requiring blood transfusion presents to ED for evaluation. Pt states that has experienced nausea and multiple episodes of vomiting and abdominal pain over the past 1 week. Pt transported to [facility] via private vehicle. 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 Pt admitted to [facility] unit. Pt seen and evaluated by surgical team in ED. she underwent right hemicolectomy with Betadine and an omental biopsy on 09/01. Postoperative care to being managed by surgery team, patient placed on TPN and also started on diet. Plan to continue TPN until she can consume proper amount by mouth diet. She was then discharged to SNF in stable condition Radiological data: CT A/P IMPRESSION: 1. 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 Biopsy was taken. Patient will follow with her Oncologist MRI showed cecal mass and mesenteric lymphadenopathy. 2. Several enlarged pericecal lymph nodes concerning for neoplastic involvement. Stranding and nodularity of the left omentum could represent omental carcinomatosis. 3. Several simple hepatic cysts. Several additional low-attenuation hepatic lesions which are too small to characterize but may represent small cysts or metastatic lesions. MRI showed cysts, no liver metastases. 4. Small volume of scattered ascites. 5. Several nonspecific low-attenuation renal lesions which are higher in atten uation than simple cysts and may represent proteinaceous or hemorrhagic cysts versus solid renal neoplasms. 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 [id number] Discharge diagnosis and management: Cecal Mass: -s/p right hemicolectomy, omental bx, peritoneal bxs - 09/01, postoperative care per , will cont outpt oncology followup SBO secondary to Cecal Mass: Resolved following surgery -Patient currently on TPN - advance to soft diet along with TPN Possible Metastatic lesion to liver and omentum: MRI didn't show hepatic metastasis., mgt per oncolology Hyponatermia: resolved. Metabolic Acidosis: resolved with hydration Peritoneal irration/acute abdominal pain secondary to small bowel obstruction: Management as noted above Iron deficency anemia: As noted above patient follows with hematology oncology. Considering coronary consult hematology. Left bundle branch block: Echocardiogram; EF 50-55%, diastolic dysfunction. Hypokalemia: Repleted. DVT/GI prophylaxis Disposition: d/c to SNF Hospitalist Physical exam: GENERAL: well-developed elderly white female lying on bed appeared to be in no discomfort. HEENT: Normocephalic. Atraumatic. No conjunctival congestion or icterus. Patient has moist mucous membranes. NECK: Supple. Trachea midline. CHEST/LUNGS: Clear to auscultated bilaterally, breathing nonlabored. No wheezes crackles or rhonchi. HEART/CARDIOVASCULAR: Regular in rate and rhythm. S1 and S2 positive. ABDOMEN: Abdomen is soft, surgical dressing on place. Patient has normal bowel sounds. SKIN: There is no rash. Warm and dry. NEURO: No focal motor deficit. Follows command. MUSCULOSKELETAL: No joint effusion EXTRIMITY: No edema, no cyanosis or clubbing. PSYCH: Cooperative. Disposition: DC/[place]-03 SNF [facility] Time spent for discharge: 34 minutes Core Measure Documentation - Palliative Care Palliative Care/ Comfort Measures: Not Applicable - Core Measures Any of the following diagnoses?: none Exam - Constitutional Vitals: Temp Pulse Resp BP Pulse Ox 98.5 F 98 H 20 110/41 94 09/08/18 12:16 09/08/18 12:16 09/08/18 12:16 09/08/18 12:16 09/08/18 12:16 Plan Activity: fall precautions Weight Bearing Status: Non-Weight Bearing Diet: advance as tolerated Wound: per your surgeon's advice Additional Instructions: f/u with Dr Davison in a week. Follow-up with Dr. davidson in a week to remove surgical suture Follow up with: ANA MOURA MD [Primary Care Provider] - 3-5 Days Prescriptions: Pantoprazole [Protonix] 40 mg PO QDAY #30 tablet Ketorolac [Toradol] 10 mg PO Q6H PRN #10 tablet PRN Reason: Pain Ondansetron (Nf) [Zofran TAB] 8 mg PO Q8HR PRN #10 tablet PRN Reason: Nausea
[2018-09-08 17:09] VITALS: BP 112/47
[2018-09-08] MEDS ORDERED: TPN ADULT 1,800 ML IV SCH (20:00)
== END 2018-09-08 18:50 | DRG 329 ==
LOC: ED 11:04 → 2B-ACE 16:24 → 3B-SURG 09-01 17:01 → 4A 09-02 12:06 → 3B-SURG 09-04 20:37
PROVIDERS: ADMIT Internal Medicine; ATTEND Internal Medicine
PROC: 02HV33Z Insertion of Infusion Device into Superior Vena Cava, Percutaneous Approach (ICD-10-PCS; 2018-08-31)
PROC: 3E0436Z Introduction of Nutritional Substance into Central Vein, Percutaneous Approach (ICD-10-PCS; 2018-08-31)
PROC: 0DTF0ZZ Resection of Right Large Intestine, Open Approach (ICD-10-PCS; principal; 2018-09-01)
PROC: 0DBU0ZX Excision of Omentum, Open Approach, Diagnostic (ICD-10-PCS; 2018-09-01)
PROC: 0DBW0ZX Excision of Peritoneum, Open Approach, Diagnostic (ICD-10-PCS; 2018-09-01)
DX: C18.2 Malignant neoplasm of ascending colon (principal); E43 Unspecified severe protein-calorie malnutrition; K65.9 Peritonitis, unspecified; K56.600 Partial intestinal obstruction, unspecified as to cause; E87.2 Acidosis; E87.1 Hypo-osmolality and hyponatremia; R18.8 Other ascites; I44.2 Atrioventricular block, complete; I42.0 Dilated cardiomyopathy; C78.6 Secondary malignant neoplasm of retroperitoneum and peritoneum; C79.89 Secondary malignant neoplasm of other specified sites; K63.9 Disease of intestine, unspecified; I44.7 Left bundle-branch block, unspecified; E87.6 Hypokalemia; I10 Essential (primary) hypertension; D50.9 Iron deficiency anemia, unspecified; E16.2 Hypoglycemia, unspecified; R59.1 Generalized enlarged lymph nodes; K76.89 Other specified diseases of liver; Z68.27 Body mass index [BMI] 27.0-27.9, adult; Z90.710 Acquired absence of both cervix and uterus
CPT/HCPCS: 36415; 71045; 71250; 74019; 74177; 74181; 80048; 80053; 81001; 82378; 82550; 82553; 82607; 82728; 82747; 82962; 83550; 83690; 83735; 84100; 84436; 84439; 84443; 84478; 84484; 85007; 85025; 85027; 86850; 86900; 86901; 87040; 87086; 88302; 88305; 88309; 88341; 88342; 93005; 93010; 93306; G0378; C9113; J0330; J0360; J0690; J1100; J1170; J1650; J1885; J2270; J2370; J2405; J2704; J2765; J3010; J3480; J7030; J7040; J7050; J7120; Q9967